=== PATIENT | female | born 1980 | race Caucasian/White ===

== ENCOUNTER 2016-09-07 14:22 | Emergency (ER) | payer OTHER ==
[~2016-09-07] VITALS: Ht 157.5 cm; Wt 101.2 kg
[~2016-09-07 14:22] MED LIST: AGM875T PO; AMLO10TA2 PO; AMLO5TAB2 PO; ATOR20TA66 PO; CHLO25TA22 PO; CYCL10TA9 PO; FAMO-119 PO; FERR-57 PO; HCT25T PO; HCTZ; IBP800T PO; KETO-22 PO; LVT.025T; LVT.05T PO; LVT.112T PO; MELO-195 PO; MELO7.5T PO; METF500T8 PO; NAPR-243 PO; NFCHLORT25 PO; OMG1KC PO; PHEN37.53 PO; PRD20T PO; PRD50T PO; RABE20TA PO; SIMV20TA3 PO; SIMV40TA4 PO; SULF1TAB38 PO; TRAM50TA2 PO; TRM50T PO
[2016-09-07] MEDS ORDERED: NAPR500T PO (15:09)
--- NOTE | 2016-09-07 15:09 | ED Upper Extremity ---
General Chief Complaint: Upper Extremity Stated Complaint: L WRIST PAIN Nursing Triage Note: PT CO OF L WRIST WEAKNESS, AND PAIN Nursing Sepsis Screen: No Definite Risk History of Present Illness Time seen by provider: 14:55 Initial Comments Left wrist and hand pain for 10 days, left hand dominant. Pain/Injury Location: left wrist, left hand Method of Injury: other (Overuse) Modifying Factors: Improves With Rest She has tried ibuprofen 600 mg every 6-8 hours with no improvement Allergies and Home Medications Allergies Coded Allergies: No Known Drug Allergies (Unverified , 02/17/10) Home Medications Amlodipine Besylate 10 Mg Tablet #30 (Reported) Chlorthalidone 25 Mg Tablet #30 (Reported) Famotidine 20 Mg Tablet #20 20 MG PO BID Prescribed by: SANDRA ANDREWS on 03/30/16 1613 Levothyroxine Sodium 50 Mcg Tablet #30 1 EACH PO DAILY Prescribed by: ROGELIO WILKINS on 02/27/14 1323 Naproxen 500 Mg Tablet #60 500 MG PO BID PRN PRN PAIN Prescribed by: SHER URRUTIA on 09/07/16 1509 Phentermine HCl 37.5 Mg Tablet 37.5 MG PO (Reported) Constitutional: no symptoms reported see HPI EENTM: no symptoms reported see HPI Respiratory: no symptoms reported see HPI Cardiovascular: no symptoms reported see HPI Gastrointestinal: no symptoms reported see HPI Genitourinary: no symptoms reported see HPI Musculoskeletal: no symptoms reported see HPI Skin: no symptoms reported see HPI Psychiatric/Neurological: No Symptoms Reported See HPI All Other Systems Reviewed Negative Unless Noted: Yes Past Esqmlmh-Wioijq-Sltybn Hx Patient Social History Alcohol Use: Denies Use Recreational Drug Use: No Smoking Status: Never a Smoker Recent Foreign Travel: No Contact w/Someone Who Travel: No Recent Infectious Disease Expo: No Recent Hopitalizations: No Physical Abuse Screen: No Sexual Abuse: No Immunizations Up To Date Tetanus Booster (TDap): Unknown Date of Pneumonia Vaccine: Apr 06, 2012 Seasonal Allergies Seasonal Allergies: No Surgeries HX Surgeries: Yes Surgeries: Tonsillectomy, Tubal Ligation Respiratory Hx Respiratory Disorders: No Cardiovascular Hx Cardiac Disorders: Yes Cardiac Disorders: High Cholesterol Neurological Hx Neurological Disorders: No Reproductive System Hx Reproductive Disorders: No HIV/AIDS: No Genitourinary Hx Genitourinary Disorders: No Gastrointestinal Hx Gastrointestinal Disorders: No Musculoskeletal Hx Musculoskeletal Disorders: No Endocrine Hx Endocrine Disorders: Yes Endocrine Disorders: Hypothyroidsim HEENT HX ENT Disorders: No Loss of Vision: Denies Hearing Impairment: Denies Cancer Hx Cancer: No Psychosocial Hx Psychiatric Problems: No Behavioral Health Disorders: Anxiety Integumentary HX Skin/Integumentary Disorder: No Blood Transfusions Hx Blood Disorders: No Adverse Reaction to a Blood Tr: No Reviewed Nursing Assessment Reviewed/Agree w Nursing PMH: Yes Family Medical History Significant Family History: No Pertinent Family Hx Family Medial History: Cardiovascular disease 19 FATHER 19 MOTHER Congenital heart disease 19 MOTHER Hypertension 19 MOTHER Myocardial infarction 19 MOTHER Physical Exam Vital Signs Vital Sign - Last 12Hours 09/07/16 14:40 Temp 97.9 Pulse 96 Resp 18 B/P 174/99 Pulse Ox 100 Capillary Refill : Less Than 3 Seconds General Appearance: WD/WN no apparent distress HEENT: PERRL/EOMI normal ENT inspection Neck: non-tender full range of motion supple normal inspection Cardiovascular: normal peripheral pulses regular rate, rhythm no edema no gallop no JVD no murmur Respiratory: chest non-tender lungs clear normal breath sounds no respiratory distress no accessory muscle use Wrist: Yes normal inspection, Yes no evidence of injury, Yes normal ROM, No asymmetry, Yes pain (left), Yes soft tissue tenderness (base of thumb and volar wrist), No swelling Hand: normal inspection, no evidence of injury, normal ROM, Left, soft tissue tenderness (thenar eminence) Neurologic/Tendon: normal sensation normal motor functions normal tendon functions Neurologic/Psychiatric: no motor/sensory deficits alert normal mood/affect Skin: normal color warm/dry Progress/Results/Core Measures Results/Orders Vital Signs/I&O Vital Sign - Last 12Hours 09/07/16 09/07/16 14:40 15:13 Temp 97.9 97.9 Pulse 96 96 Resp 18 18 B/P 174/99 Pulse Ox 100 100 Blood Pressure Mean: 124 Progress Note : Time: 15:00 Progress Note Wrist splint applied to the left hand, patient reports that it improves her symptoms. Encouraged her to wear it as much as possible. Departure Impression Impression: Primary Impression: Left wrist pain Additional Impression: Carpal tunnel syndrome of left wrist Disposition: 01 HOME, SELF-CARE Condition: Improved Departure-Patient Inst. Decision time for Depature: 15:00 Referrals: [facility] (PCP/Family) Primary Care Physician Patient Instructions: Carpal Tunnel Syndrome (DC) Add. Discharge Instructions: All discharge instructions reviewed with patient and/or family. Voiced understanding. Wear wrist splint. Follow up with Bharati Graham APRN if symptoms persist. Scripts Naproxen (Naprosyn)500 Mg [id number] Mg PO BID PRN PAIN #60 TAB Ref 0 Prov:SHER URRUTIA 09/07/16 SHER URRUTIA Sep 07, 2016 15:09
[2016-09-07 15:13] VITALS: BP 174/99
== END 2016-09-07 15:16 | disposition home or self-care (01) ==
LOC: EDUNIT# 14:22 → ER 14:23
DX: M25.532 Pain in left wrist (principal); G56.02 Carpal tunnel syndrome, left upper limb
CPT/HCPCS: 99283

== ENCOUNTER 2016-09-13 13:46 | Emergency (ER) | payer OTHER ==
[~2016-09-13] VITALS: Ht 157.5 cm; Wt 101.2 kg
[~2016-09-13 13:46] MED LIST changes: +NAPR500T PO
--- NOTE | 2016-09-13 14:39 | Diagnostic Imaging Report ---
INDICATION: Cough, congestion, chest pressure, shortness of air. Compared to 04/06/2014. FINDINGS: The lungs are clear. There is, however, some prominence of the perihilar interstitial lung markings and thickening of the airways which can reflect reactive airway disease or bronchitis. No pneumonia, however. No failure, effusion or pneumothorax. IMPRESSION: Mild prominence of perihilar interstitial lung markings, otherwise, negative. Dictated by: Dictated on workstation # [id number]
--- NOTE | 2016-09-13 15:05 | ED Cough/URI ---
General Chief Complaint: Cough/Cold/Flu Symptoms Stated Complaint: FEVER/COUGH/CONGESTION Nursing Triage Note: Pt presents to ED with c/o non productive cough and fever over the last several days. 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 Source: patient Exam Limitations: clinical condition History of Present Illness Time seen by provider: 14:59 Initial Comments This 36-year-old female presents with cough, fever, and shortness of breath for the last several days. The patient has been using Tylenol intermittently for her fever. The patient denies a history of lung disease. She has had no cardiac disease. She denies hemoptysis or productive cough. She states that employee in her son' s albuterol nebulizer home has helped. Allergies and Home Medications Allergies Coded Allergies: No Known Drug Allergies (Unverified , 02/17/10) Home Medications Amlodipine Besylate 10 Mg Tablet #30 (Reported) Chlorthalidone 25 Mg Tablet #30 (Reported) Famotidine 20 Mg Tablet #20 20 MG PO BID Prescribed by: SANDRA ANDREWS on 03/30/16 1613 Levothyroxine Sodium 50 Mcg Tablet #30 1 EACH PO DAILY Prescribed by: ROGELIO WILKINS on 02/27/14 1323 Constitutional: No chills, No diaphoresis, fever EENTM: No hearing loss, No throat pain Respiratory: cough wheezing Cardiovascular: No chest pain Gastrointestinal: No abdominal pain, No diarrhea, No vomiting Genitourinary: No dysuria, No frequency Musculoskeletal: No back pain Skin: No rash Psychiatric/Neurological: No Symptoms Reported Hematologic/Lymphatic: No Symptoms Reported Past Obrsiom-Mbyzjq-Xmcupr Hx Patient Social History Alcohol Use: Denies Use Recreational Drug Use: No Smoking Status: Never a Smoker Recent Foreign Travel: No Contact w/Someone Who Travel: No Recent Infectious Disease Expo: No Recent Hopitalizations: Yes (ER visit 1.5 weeks ago- carpal tunnel.) Physical Abuse Screen: No Sexual Abuse: No Immunizations Up To Date Tetanus Booster (TDap): Unknown Date of Pneumonia Vaccine: Apr 06, 2012 Seasonal Allergies Seasonal Allergies: No Surgeries HX Surgeries: Yes Surgeries: Tonsillectomy, Tubal Ligation Respiratory Hx Respiratory Disorders: No Cardiovascular Hx Cardiac Disorders: Yes Cardiac Disorders: High Cholesterol, Hypertension Neurological Hx Neurological Disorders: No Reproductive System Hx Reproductive Disorders: No HIV/AIDS: No Genitourinary Hx Genitourinary Disorders: No Gastrointestinal Hx Gastrointestinal Disorders: No Musculoskeletal Hx Musculoskeletal Disorders: No Endocrine Hx Endocrine Disorders: Yes Endocrine Disorders: Hypothyroidsim HEENT HX ENT Disorders: No Loss of Vision: Denies Hearing Impairment: Denies Cancer Hx Cancer: No Psychosocial Hx Psychiatric Problems: No Behavioral Health Disorders: Anxiety Integumentary HX Skin/Integumentary Disorder: No Blood Transfusions Hx Blood Disorders: No Adverse Reaction to a Blood Tr: No Reviewed Nursing Assessment Reviewed/Agree w Nursing PMH: Yes Family Medical History Significant Family History: No Pertinent Family Hx Family Medial History: Cardiovascular disease 19 FATHER 19 MOTHER Congenital heart disease 19 MOTHER Hypertension 19 MOTHER Myocardial infarction 19 MOTHER Physical Exam Vital Signs Vital Sign - Last 12Hours 09/13/16 14:01 Temp 99.4 Pulse 98 Resp 20 B/P 159/92 Pulse Ox 100 O2 Delivery Room Air Capillary Refill : Less Than 3 Seconds General Appearance: WD/WN no apparent distress Eyes: Bilateral Eye Normal Inspection HEENT: normal ENT inspection Neck: supple Respiratory: decreased breath soundsNo rales, wheezing Cardiovascular: regular rate, rhythm no murmur Gastrointestinal: normal bowel sounds non tender soft Extremities: normal range of motion Neurologic/Psychiatric: no motor/sensory deficits alert Skin: normal color warm/dry Progress/Results/Core Measures Results/Orders My Orders Orders-REFUGIO FARRAR MD Chest Pa/Lat (2 View) (09/13/16 14:10) Vital Signs/I&O Vital Sign - Last 12Hours 09/13/16 14:01 Temp 99.4 Pulse 98 Resp 20 B/P 159/92 Pulse Ox 100 O2 Delivery Room Air Blood Pressure Mean: 114 Progress Note : Time: 15:02 Progress Note Patient's chest x-ray demonstrated bilateral fine perihilar infiltrate suggestive of either a viral infection or atypical pneumonia. The patient's pulse oximetry was 100 percent on room air at presentation emergency department. I discussed patient's findings with her and her . We created a treatment plan which will involve azithromycin, Tussionex, albuterol nebulized treatments at home, and prednisone for next 5 days. I asked that the patient follow-up with her caregiver on Thursday. I invited her to return to the emergency department over the weekend if she any further problems or questions. Departure Impression Impression: Primary Impression: Upper respiratory infection Qualified Code: J06.9 - Acute upper respiratory infection, unspecified Disposition: HOME, SELF-CARE Condition: Unchanged Departure-Patient Inst. Decision time for Depature: 15:04 Referrals: [facility] ([place]P/Family) Primary Care Physician Patient Instructions: Acute Bronchitis in Adults Add. Discharge Instructions: Z-Vipul, prednisone, Tussionex, and Ventolin nebulized treatments at home. Close follow-up with [facility] on Thursday. Return if any problems or questions. All discharge instructions reviewed with patient and/or family. Voiced understanding. REFUGIO FARRAR MD Sep 13, 2016 15:05
[2016-09-13 15:31] VITALS: BP 162/90
== END 2016-09-13 15:30 | disposition home or self-care (01) ==
LOC: EDUNIT# 13:46 → ER 13:47
DX: J06.9 Acute upper respiratory infection, unspecified (principal); I10 Essential (primary) hypertension; Z79.899 Other long term (current) drug therapy
CPT/HCPCS: 71020

== ENCOUNTER 2016-11-27 06:08 | Emergency (ER) | payer OTHER ==
[~2016-11-27] VITALS: Ht 160 cm; Wt 99.8 kg
[2016-11-27 06:45] LABS: BASOPHILS # (AUTO) 0.1 10^3/uL (0.0-0.1); BASOPHILS % (AUTO) 1 % (0-10); EOSINOPHILS # (AUTO) 0.3 10^3/uL (0.0-0.3); EOSINOPHILS % (AUTO) 5 % (0-10); LYMPHOCYTES # (AUTO) 1.3 X 10^3 (1.0-4.0); LYMPHOCYTES % (AUTO) 22 % (12-44); MEAN CORPUSCULAR HEMOGLOBIN 21 PG (25-34); MEAN CORPUSCULAR HGB CONC 30 G/DL (32-36); MEAN CORPUSCULAR VOLUME 70 FL (80-99); MEAN PLATELET VOLUME 11.6 FL (7.4-10.4); MONOCYTES # (AUTO) 0.8 X 10^3 (0.0-1.0); MONOCYTES % (AUTO) 13 % (0-12); NEUTROPHILS # (AUTO) 3.4 X 10^3 (1.8-7.8); NEUTROPHILS % (AUTO) 58 % (42-75); PLATELET COUNT 359 10^3/uL (130-400); RED BLOOD COUNT 4.19 10^6/uL (4.35-5.85); RED CELL DISTRIBUTION WIDTH 18.7 % (10.0-14.5); WHITE BLOOD COUNT 5.8 10^3/uL (4.3-11.0)
[2016-11-27 07:04] LABS: ALANINE AMINOTRANSFERASE 15 U/L (0-55); ALBUMIN 3.9 G/DL (3.2-4.5); ANION GAP 10 MMOL/L (5-14); ASPARTATE AMINO TRANSFERASE 14 U/L (5-34); BILIRUBIN,TOTAL 0.2 MG/DL (0.1-1.0); BLOOD UREA NITROGEN 10 MG/DL (7-18); BUN/CREATININE RATIO 13; CALCIUM 8.7 MG/DL (8.5-10.1); CARBON DIOXIDE 22 MMOL/L (21-32); CHLORIDE 105 MMOL/L (98-107); CREATININE SERUM 0.76 MG/DL (0.60-1.30); GFR ESTIMATED > 60; GLUCOSE 99 MG/DL (70-105); POTASSIUM 3.9 MMOL/L (3.6-5.0); SODIUM 137 MMOL/L (135-145); TOTAL PROTEIN 6.1 G/DL (6.4-8.2)
--- NOTE | 2016-11-27 07:32 | ED Cough/URI ---
General Chief Complaint: Cough/Cold/Flu Symptoms Stated Complaint: FEVER OVER 101. X 2 DAYS Nursing Triage Note: Pt c/o sore throat, headache, chills, runny nose, cough, and chest tightness since 1300 yesterday. Pt reports she has been running fever of 101.2 at home. Source: patient Exam Limitations: no limitations History of Present Illness Time seen by provider: 07:20 Initial Comments The patient is a 36-year-old white female who presents with complaints of fever , myalgia, cough beginning yesterday. She took an ibuprofen yesterday has taken nothing today she reported a 101 temperature yesterday. Her temperature on arrival was normal. There is no nausea vomiting or indigestion. Timing/Duration: yesterday Severity/Quality: dry cough Allergies and Home Medications Allergies Coded Allergies: No Known Drug Allergies (Unverified , 02/17/10) Home Medications Amlodipine Besylate 10 Mg Tablet, 10 MG PO DAILY, #30 (Reported) Chlorthalidone 25 Mg Tablet, 25 MG PO DAILY, #30 (Reported) Famotidine 20 Mg Tablet, 20 MG PO BID, #20 Ref 0 Prescribed by: SANDRA ANDREWS on 03/30/16 1613 Levothyroxine Sodium 50 Mcg Tablet, 1 EACH PO DAILY, #30 Prescribed by: ROGELIO WILKINS on 02/27/14 1323 Constitutional: see HPI EENTM: no symptoms reported Respiratory: cough Cardiovascular: no symptoms reported Gastrointestinal: no symptoms reported Genitourinary: no symptoms reported Musculoskeletal: muscle pain Skin: no symptoms reported Psychiatric/Neurological: No Symptoms Reported Hematologic/Lymphatic: No Symptoms Reported Past Rpypehh-Lakyfr-Ecytxq Hx Patient Social History Alcohol Use: Denies Use Recreational Drug Use: No Smoking Status: Never a Smoker Recent Foreign Travel: No Contact w/Someone Who Travel: No Recent Infectious Disease Expo: No Recent Hopitalizations: No Immunizations Up To Date Tetanus Booster (TDap): Unknown Date of Pneumonia Vaccine: Apr 06, 2012 Seasonal Allergies Seasonal Allergies: No Surgeries HX Surgeries: Yes Surgeries: Tonsillectomy, Tubal Ligation Respiratory Hx Respiratory Disorders: No Cardiovascular Hx Cardiac Disorders: Yes Cardiac Disorders: High Cholesterol, Hypertension Neurological Hx Neurological Disorders: No Reproductive System Hx Reproductive Disorders: No HIV/AIDS: No Genitourinary Hx Genitourinary Disorders: No Gastrointestinal Hx Gastrointestinal Disorders: No Musculoskeletal Hx Musculoskeletal Disorders: No Endocrine Hx Endocrine Disorders: Yes Endocrine Disorders: Hypothyroidsim HEENT HX ENT Disorders: No Loss of Vision: Denies Hearing Impairment: Denies Cancer Hx Cancer: No Psychosocial Hx Psychiatric Problems: Yes Behavioral Health Disorders: Anxiety Integumentary HX Skin/Integumentary Disorder: No Blood Transfusions Hx Blood Disorders: No Adverse Reaction to a Blood Tr: No Family Medical History Significant Family History: No Pertinent Family Hx Family Medial History: Cardiovascular disease 19 FATHER 19 MOTHER Congenital heart disease 19 MOTHER Hypertension 19 MOTHER Myocardial infarction 19 MOTHER Physical Exam Vital Signs Vital Sign - Last 12Hours 11/27/16 06:17 Temp 97.2 Pulse 78 Resp 18 B/P (MAP) 136/87 Pulse Ox 97 O2 Delivery Room Air Capillary Refill : Less Than 3 Seconds Eyes: Bilateral Eye Normal Inspection HEENT: normal ENT inspection Neck: full range of motion Respiratory: chest non-tender, lungs clear, normal breath sounds, no respiratory distress, no accessory muscle use, respiratory distress Cardiovascular: normal peripheral pulses, regular rate, rhythm, no edema, no gallop, no JVD, no murmur Gastrointestinal: normal bowel sounds, non tender, soft, no organomegaly, no pulsatile mass Extremities: normal range of motion, non-tender, normal inspection, no pedal edema, no calf tenderness, normal capillary refill, pelvis stable Neurologic/Psychiatric: yard jacker II-XII nml as tested, no motor/sensory deficits, alert, normal mood/affect, oriented x 3 Skin: normal color, warm/dry, cyanosis, cool, diaphoresis, damp Lymphatic: no adenopathy Progress/Results/Core Measures Results/Orders Lab Results Laboratory Tests Test 11/27/16 06:32 Range/Units White Blood Count 5.8 4.3-11.0 10^3/uL Red Blood Count 4.19 L 4.35-5.85 10^6/uL Hemoglobin 8.6 L 11.5-16.0 G/DL Hematocrit 29 L 35-52 % Mean Corpuscular Volume 70 L 80-99 FL Mean Corpuscular Hemoglobin 21 L 25-34 PG Mean Corpuscular Hemoglobin Concent 30 L 32-36 G/DL Red Cell Distribution Width 18.7 H 10.0-14.5 % Platelet Count 359 130-400 10^3/uL Mean Platelet Volume 11.6 H 7.4-10.4 FL Neutrophils (%) (Auto) 58 42-75 % Lymphocytes (%) (Auto) 22 12-44 % Monocytes (%) (Auto) 13 H 0-12 % Eosinophils (%) (Auto) 5 0-10 % Basophils (%) (Auto) 1 0-10 % Neutrophils # (Auto) 3.4 1.8-7.8 X 10^3 Lymphocytes # (Auto) 1.3 1.0-4.0 X 10^3 Monocytes # (Auto) 0.8 0.0-1.0 X 10^3 Eosinophils # (Auto) 0.3 0.0-0.3 10^3/uL Basophils # (Auto) 0.1 0.0-0.1 10^3/uL Sodium Level 137 135-145 MMOL/L Potassium Level 3.9 3.6-5.0 MMOL/L Chloride Level 105 98-107 MMOL/L Carbon Dioxide Level 22 21-32 MMOL/L Anion Gap 10 5-14 MMOL/L Blood Urea Nitrogen 10 7-18 MG/DL Creatinine 0.76 0.60-1.30 MG/DL Estimat Glomerular Filtration Rate > 60 BUN/Creatinine Ratio 13 Glucose Level 99 70-105 MG/DL Calcium Level 8.7 8.5-10.1 MG/DL Total Bilirubin 0.2 0.1-1.0 MG/DL Aspartate Amino Transf (AST/SGOT) 14 5-34 U/L Alanine Aminotransferase (ALT/SGPT) 15 0-55 U/L Alkaline Phosphatase 88 40-136 U/L Total Protein 6.1 L 6.4-8.2 G/DL Albumin 3.9 3.2-4.5 G/DL Micro Results Microbiology 11/27/16 Influenza Types A,B Antigen (RADHA) - Final, Complete My Orders Orders - PINKY SHERMAN MD Cbc With Automated Diff (11/27/16 06:22) Comprehensive Metabolic Panel (11/27/16 06:22) Influenza A And B Antigens (11/27/16 06:22) Vital Signs/I&O Vital Sign - Last 12Hours 11/27/16 11/27/16 06:17 06:17 Temp 97.2 Pulse 78 Resp 18 B/P (MAP) 136/87 Pulse Ox 97 O2 Delivery Room Air Room Air Blood Pressure Mean: 103 Departure Impression Impression: Primary Impression: Viral URI Disposition: 01 HOME, SELF-CARE Condition: Stable/Unchanged Departure-Patient Inst. Decision time for Depature: 07:33 Referrals: [facility] (PCP/Family) Primary Care Physician Patient Instructions: Viral Upper Respiratory Infection, Adult (DC) Add. Discharge Instructions: All discharge instructions reviewed with patient and/or family. Voiced understanding. Symptoms may last for a weeks. Treatment involves plenty of fluids, extra rest, cough lozenges for cough management, Tylenol 650 every 4 hours or if fever 102 or greater ibuprofen 600 mg every 6 hours. You were noted to be anemic and this will require some attention from your provider. They have been contacted to arrange follow-up. PINKY SHERMAN MD Nov 27, 2016 07:32
[2016-11-27 07:40] VITALS: BP 132/82
--- OUTSIDE RECORDS SUMMARY | 2016-11-30 08:03 | XMS REPORT ---
Author Author HENNA SIMS Organization [employer] Address Unknown Phone Unavailable Care Team Providers Care Cover Machine Operator Name Role Phone HENNA SIMS CP Unavailable Allergies No Known Allergies Problems Problem Type Condition Code Onset Dates Condition Status Problem Lateral epicondylitis of elbow 726.32 Active Problem Pain in joint, pelvic region and thigh 719.45 Active Problem Unspecified viral infection, in conditions classified elsewhere and of unspecified site 079.99 Active Problem Hyperlipidemia 272.4 Active Problem Fasciitis 729.4 Active Problem Hypertension 401.9 Active Problem Acute bronchitis 466.0 Active Problem Abnormal weight gain 783.1 Active Problem Goiter, unspecified 240.9 Active Problem Other abnormal glucose 790.29 Active Assessment Tarsal tunnel syndrome of right side G57.51 Active Problem Abdominal pain, epigastric 789.06 Active Assessment Plantar fasciitis, right M72.2 Active Problem Unspecified synovitis and tenosynovitis 727.00 Active Problem Medial epicondylitis of elbow 726.31 Active Problem Unspecified fasciitis 729.4 Active Problem Overweight 278.02 Active Problem Personal history of noncompliance with medical treatment, presenting hazards to health V15.81 Active Problem Acute sinusitis, unspecified 461.9 Active Medications No Known Medications Procedures Procedure Coding System Code Date Office Visit, Est Pt., Level 3 CPT-4 20020 Jun 29, 2015 INJ TENDON SHEATH/LIGAMENT CPT-4 84235 Jun 29, 2015 Vital Signs Date/Time: Jun 29, 2015 Blood Pressure Diastolic 90 mmHg Blood Pressure Systolic 130 mmHg Height 63 in Results Name Result Date Reference Range Unit Abnormality Flag INJ TENDON SHEATH/LIGAMENT Summary Purpose [employer] Submission
--- OUTSIDE RECORDS SUMMARY | 2016-11-30 08:03 | XMS REPORT ---
Author ELIZABETH Victor [facility] [employer] Address Unknown Phone Unavailable Care Team Providers Care Finishing Lab Technician Name Role Phone ELIZABETH DELUCA CP Unavailable Allergies, Adverse Reactions, Alerts Substance Reaction Event Type N.K.D.A. Info Not Available Non Drug Allergy Problems Problem Type Condition Code Onset Dates [...] Problem Other abnormal glucose 790.29 Active Assessment Acute upper respiratory infection, unspecified J06.9 Active Problem Abdominal pain, epigastric 789.06 Active Problem Unspecified synovitis and tenosynovitis 727.00 Active Problem Medial epicondylitis of elbow 726.31 Active Problem Unspecified fasciitis 729.4 Active Problem Overweight 278.02 Active Problem Personal history of noncompliance with medical treatment, presenting hazards to health V15.81 Active Problem Acute sinusitis, unspecified 461.9 Active Medications Medication Code System Code Instructions Start Date End Date Status Dosage Levothyroxine Sodium [facility] [address]-26 175 MCG Orally Once a day Jun 04, 2015 1 tablet Aciphex [facility] [address]-71 20 MG Orally Once a day 1 tablet Flonase [facility] [address]-53 50 MCG/ACT Nasally 2 times a day February 21, 2015 1 spray in each nostril Augmentin [facility] [address]-08 875-125 MG Orally every 12 hrs Aug 22, 2015 Sep 01, 2015 1 tablet Chlorthalidone [facility] [address]-53 25 MG Orally Once a day 1 tablet in the morning Amlodipine Besylate [facility] [address]-34 10 MG Orally Once a day 1 tablet Phentermine HCl [facility] [address]-67 37.5 MG Orally not defined Ibuprofen [facility] [id number] 600 MG TAKE ONE TABLET BY MOUTH THREE TIMES DAILY NEEDED PAIN WITH FOOD PredniSONE [facility] [address]-62 20 MG Orally Once a day Aug 22, 2015 Aug 27, 2015 as directed Promethazine-Codeine [facility] [address]-35 6.25-10 MG/5ML Orally Once a day at bedtime Aug 22, 2015 Aug 29, 2015 5 ml as needed Atorvastatin Calcium [facility] [address]-25 10 MG Orally Once a day Jun 04, 2015 1 tablet Procedures Procedure Coding System Code Date Office Visit, Est Pt., Level 3 CPT-4 45436 Aug 22, 2015 Vital Signs Date/Time: Aug 22, 2015 Temperature 98.8 F Weight 223.2 lbs Height 63 in BMI 39.53 Index Blood Pressure Diastolic 84 mmHg Blood Pressure Systolic 122 mmHg Cardiac Monitoring Heart Rate 96 bpm Results No Known Results Summary Purpose [employer] Submission
--- OUTSIDE RECORDS SUMMARY | 2016-11-30 08:03 | XMS REPORT ---
Author SUBHASH Mueller [facility] eClinicalWorks Address Unknown Phone Unavailable Care Team Providers Care Head Filter Tank Tender Helper Name Role Phone SUBHASH WHEAT Unavailable Allergies, Adverse Reactions, Alerts Substance Reaction Event Type N.K.D.A. Info Not Available Non Drug Allergy Problems Problem Type Condition Code Onset Dates Condition Status Problem Pure hypercholesterolemia E78.0 Active Problem GERD (gastroesophageal reflux disease) K21.9 Active Problem Essential hypertension I10 Active Assessment Muscle spasm of back M62.830 Active Problem Acquired hypothyroidism E03.9 Active Problem Fasciitis 729.4 Active Medications Medication Code System Code Instructions Start Date End Date Status Dosage Atorvastatin Calcium [facility] [address]-63 10 MG Orally Once a day Jun 04, 2015 1 tablet Cyclobenzaprine HCl [facility] [address]-88 10 mg Orally Three times a day March 20, 2016 1 tablet Amlodipine Besylate [facility] [address]-85 10 MG Orally Once a day 1 tablet Aciphex [facility] [address]-75 20 MG Orally Once a day 1 tablet Chlorthalidone [facility] [address]-46 25 MG Orally Once a day 1 tablet in the morning Tramadol HCl [facility] [address]-17 50 mg Orally every 6 hrs.prn pain March 20, 2016 1-2 Flonase [facility] [address]-35 50 MCG/ACT Nasally 2 times a day February 21, 2015 1 spray in each nostril Levothyroxine Sodium [facility] [address]-83 150 MCG Orally Once a day Sep 17, 2015 1 tablet Phentermine HCl [facility] [address]-10 37.5 MG Orally not defined Ibuprofen [facility] 69492920588 600 MG oral three times a day prn 1 tablet Indomethacin [facility] [address]-03 50 MG Orally Twice a day May 30, 2015 1 capsule with food Procedures Procedure Coding System Code Date Office Visit, Est Pt., Level 2 CPT-4 84096 March 20, 2016 Vital Signs Date/Time: March 20, 2016 Cardiac Monitoring Heart Rate 90 bpm Weight 214.6 lbs Height 63 in Blood Pressure Diastolic 78 mmHg Blood Pressure Systolic 122 mmHg Results No Known Results Summary Purpose eClinicalWorks Submission
--- OUTSIDE RECORDS SUMMARY | 2016-11-30 08:03 | XMS REPORT ---
Author Author HENNA SIMS Organization eClinicalWorks Address Unknown Phone Unavailable Care Team Providers Care Toll Relief Operator Name Role Phone HENNA SIMS CP Unavailable Allergies No Known Allergies Problems Problem Type Condition ICD-9 Code Onset Dates Condition Status Problem Unspecified viral infection, in conditions classified elsewhere and of unspecified site 079.99 Active Problem Other and unspecified hyperlipidemia 272.4 Active Problem Pain in joint, pelvic region and thigh 719.45 Active Problem Chest pain, unspecified 786.50 Active Problem Acute upper respiratory infections of unspecified site 465.9 Active Problem Fasciitis 729.4 Active Problem Acute bronchitis 466.0 Active Problem Abnormal weight gain 783.1 Active Problem Goiter, unspecified 240.9 Active Problem Other abnormal glucose 790.29 Active Problem Abdominal pain, epigastric 789.06 Active Problem Unspecified fasciitis 729.4 Active Assessment Plantar fasciitis 728.71 Active Problem Medial epicondylitis of elbow 726.31 Active Problem Overweight 278.02 Active Problem Personal history of noncompliance with medical treatment, presenting hazards to health V15.81 Active Problem Acute sinusitis, unspecified 461.9 Active Problem Unspecified synovitis and tenosynovitis 727.00 Active Problem Lateral epicondylitis of elbow 726.32 Active Medications No Known Medications Procedures Procedure Coding System Code Date Office Visit, Est Pt., Level 3 CPT-4 76480 Apr 20, 2015 DEPO MEDROL 80 MG/ML CPT-4 J1040 Apr 20, 2015 INJ TENDON SHEATH/LIGAMENT CPT-4 72136 Apr 20, 2015 Vital Signs Date/Time: Apr 20, 2015 Blood Pressure Diastolic 74 mmHg Blood Pressure Systolic 126 mmHg Height 63 in Results No Known Results Summary Purpose eClinicalWorks Submission
--- OUTSIDE RECORDS SUMMARY | 2016-11-30 08:03 | XMS REPORT ---
Author MADELIN Gilbert [facility] eClinicalWorks Address Unknown Phone Unavailable Care Team Providers Care Transcripter Name Role Phone MADELIN FARFAN CP Unavailable Allergies, Adverse Reactions, Alerts Substance Reaction Event Type N.K.D.A. Info Not Available Non Drug Allergy Problems Problem Type Condition Code Onset Dates Condition Status Assessment Sore throat J02.9 Active Problem Essential hypertension I10 Active Problem Pure hypercholesterolemia E78.0 Active Problem Pain of right shoulder region M25.511 Active Problem Fasciitis 729.4 Active Assessment Dysuria R30.0 Active Problem GERD (gastroesophageal reflux disease) K21.9 Active Problem Acquired hypothyroidism E03.9 Active Medications Medication Code System Code Instructions Start Date End Date Status Dosage Orphenadrine Citrate [facility] [address]-49 100 MG Orally Once a day March 1 tablet at bedtime Phentermine HCl [facility] [address]-52 37.5 MG Orally not defined Indomethacin [facility] [address]-64 50 MG Orally Twice a day May 30, 2015 1 capsule with food Amlodipine Besylate [facility] [address]-88 5 MG Orally Once a day (10 mg total) 2 tablet Levothyroxine Sodium [facility] [address]-82 150 MCG Orally Once a day Sep 17, 2015 1 tablet Zyrtec Allergy [facility] [address]-35 10 mg Orally Once a day May 05, 2016 Aug 03, 2016 1 tablet Flonase [facility] [address]-52 50 MCG/ACT Nasally 2 times a day February 21, 2015 1 spray in each nostril Ibuprofen [facility] 08774841472 600 MG oral three times a day prn 1 tablet Aciphex [facility] [address]-83 20 MG Orally Once a day 1 tablet Atorvastatin Calcium [facility] [address]-42 10 mg Orally Once a day 1 tablet Chlorthalidone [facility] [address]-01 25 MG Orally Once a day 1 tablet in the morning Levothyroxine Sodium [facility] [address]-11 150 MCG Orally Once a day 1 tablet Procedures Procedure Coding System Code Date URINE CULTURE/COLONY COUNT CPT-4 34053 May 05, 2016 STREP A ASSAY W/OPTIC CPT-4 29032 May 05, 2016 URINALYSIS, AUTO, W/O SCOPE CPT-4 79843 May 05, 2016 Office Visit, Est Pt., Level 3 CPT-4 41857 May 05, 2016 Vital Signs Date/Time: May 05, 2016 Cardiac Monitoring Heart Rate 100 bpm Weight 217.9 lbs Height 63 in BMI 38.60 Index Blood Pressure Diastolic 110 mmHg Blood Pressure Systolic 158 mmHg Results No Known Results Summary Purpose eClinicalWorks Submission
--- OUTSIDE RECORDS SUMMARY | 2016-11-30 08:04 | XMS REPORT ---
Author Author MANDEEP ADAIR Organization eClinicalWorks Address Unknown Phone Unavailable Care Team Providers Care Canine Enforcement Officer Name Role Phone MANDEEP ADAIR CP Unavailable Allergies No Known Allergies Problems Problem Type Condition Code Onset Dates Condition Status Problem Fasciitis 729.4 Active Medications No Known Medications Results No Known Results Summary Purpose eClinicalWorks Submission
--- OUTSIDE RECORDS SUMMARY | 2016-11-30 08:04 | XMS REPORT ---
Author MANDEEP Alberts [facility] eClinicalWorks Address Unknown Phone Unavailable Care Team Providers Care Project Engineering Manager Name Role Phone MANDEEP ADAIR Unavailable Allergies, Adverse Reactions, Alerts Substance Reaction Event Type N.K.D.A. Info Not Available Non Drug Allergy Problems Problem Type Condition Code Onset Dates Condition Status Problem Pain of right shoulder region M25.511 Active Problem Essential hypertension I10 Active Problem Mixed hyperlipidemia E78.2 Active Problem Fasciitis 729.4 Active Assessment Eustachian tube dysfunction, bilateral H69.83 Active Problem GERD (gastroesophageal reflux disease) K21.9 Active Problem Acquired hypothyroidism E03.9 Active Medications Medication Code System Code Instructions Start Date End Date Status Dosage Flonase [facility] [address]-31 50 MCG/ACT Nasally 2 times a day February 21, 2015 1 spray in each nostril Zyrtec Allergy [facility] [address]-78 10 mg Orally Once a day May 05, 2016 Aug 03, 2016 1 tablet Orphenadrine Citrate ER [facility] [address]-21 100 MG Orally Once a day March 1 tablet at bedtime Chlorthalidone [facility] [address]-51 25 MG Orally Once a day 1 tablet in the morning PredniSONE [facility] [address]-39 10 MG Orally bid Jul 16, 2016 Jul 21, 2016 1 tablet Atorvastatin Calcium [facility] [address]-15 10 mg Orally Once a day 1 tablet Indomethacin [facility] [address]-14 50 MG Orally Twice a day May 30, 2015 1 capsule with food Aciphex [facility] [address]-46 20 MG Orally Once a day 1 tablet Levothyroxine Sodium [facility] [address]-41 150 MCG Orally Once a day 1 tablet Ibuprofen [facility] 62522263109 600 MG oral three times a day prn 1 tablet Amlodipine Besylate [facility] [address]-13 10 mg Orally Once a day 1 tablet Procedures Procedure Coding System Code Date Office Visit, Est Pt., Level 3 CPT-4 70511 Jul 16, 2016 Vital Signs Date/Time: Jul 16, 2016 Cardiac Monitoring Heart Rate 92 bpm Weight 219.0 lbs Height 63 in BMI 38.79 Index Blood Pressure Diastolic 84 mmHg Blood Pressure Systolic 142 mmHg Results No Known Results Summary Purpose eClinicalWorks Submission
--- OUTSIDE RECORDS SUMMARY | 2016-11-30 08:04 | XMS REPORT ---
Author MANDEEP Alberts [facility] eClinicalWorks Address Unknown Phone Unavailable Care Team Providers Care Mechanical Test Engineer Name Role Phone MANDEEP ADAIR Unavailable Allergies, Adverse Reactions, Alerts Substance Reaction Event Type N.K.D.A. Info Not Available Non Drug Allergy Problems Problem Type Condition ICD-9 Code Onset Dates Condition Status Problem Lateral epicondylitis of elbow 726.32 Active Problem Pain in joint, pelvic region and thigh 719.45 Active Problem Unspecified viral infection, in conditions classified elsewhere and of unspecified site 079.99 Active Problem Hyperlipidemia 272.4 Active Assessment Plantar fasciitis of right foot 728.71 Active Problem Fasciitis 729.4 Active Assessment Hyperlipidemia 272.4 Active Problem Hypertension 401.9 Active Problem Acute bronchitis 466.0 Active Problem Abnormal weight gain 783.1 Active Problem Goiter, unspecified 240.9 Active Problem Other abnormal glucose 790.29 Active Assessment Hypothyroidism 244.9 Active Problem Abdominal pain, epigastric 789.06 Active Assessment GERD (gastroesophageal reflux disease) 530.81 Active Assessment Hypertension 401.9 Active Problem Unspecified synovitis and tenosynovitis 727.00 Active Problem Medial epicondylitis of elbow 726.31 Active Problem Unspecified fasciitis 729.4 Active Problem Overweight 278.02 Active Problem Personal history of noncompliance with medical treatment, presenting hazards to health V15.81 Active Problem Acute sinusitis, unspecified 461.9 Active Medications Medication Code System Code Instructions Start Date End Date Status Dosage Chlorthalidone [facility] [address]-37 25 MG Orally Once a day 1 tablet in the morning Cortisporin [facility] [address]-27 3.5-14342-7 Otic Three times a day February 21, 2015 4 drops into affected ear Indomethacin [facility] [address]-50 50 MG Orally Twice a day May 30, 2015 1 capsule with food Flonase [facility] [address]-04 50 MCG/ACT Nasally 2 times a day February 21, 2015 1 spray in each nostril Levothyroxine Sodium [facility] [address]-07 200 MCG Orally Once a day [address] [facility] [address]-86 20 MG Orally Once a day [address] [facility] [address]-45 10 MG Orally Once a day [address] [facility] [address]-41 37.5 MG Orally not defined Atorvastatin Calcium [facility] [address]-06 20 MG Orally Once a day 1 tablet Procedures Procedure Coding System Code Date Office Visit, Est Pt., Level 4 CPT-4 33375 May 30, 2015 Vital Signs Date/Time: May 30, 2015 Temperature 98.4 F Weight 221.8 lbs Height 63 in BMI 39.29 Index Blood Pressure Diastolic 78 mmHg Blood Pressure Systolic 120 mmHg Cardiac Monitoring Heart Rate 92 bpm Results No Known Results Summary Purpose eClinicalWorks Submission
--- OUTSIDE RECORDS SUMMARY | 2016-11-30 08:04 | XMS REPORT ---
Author JEREMY Gonzales [facility] eClinicalWorks Address Unknown Phone Unavailable Care Team Providers Care Camp Director Name Role Phone JEREMY UMANA CP Unavailable Allergies, Adverse Reactions, Alerts Substance [...] Problem Other abnormal glucose 790.29 Active Assessment Sinusitis J32.9 Active Problem Abdominal pain, epigastric 789.06 Active Assessment Postnasal drip R09.82 Active Problem Unspecified synovitis and tenosynovitis 727.00 Active Problem Medial epicondylitis of elbow 726.31 Active Problem Unspecified fasciitis 729.4 Active Problem Overweight 278.02 Active Problem Personal history of noncompliance with medical treatment, presenting hazards to health V15.81 Active Problem Acute sinusitis, unspecified 461.9 Active Medications Medication Code System Code Instructions Start Date End Date Status Dosage Flonase [facility] [address]-24 50 MCG/ACT Nasally 2 times a day February 21, 2015 1 spray in each nostril Aciphex [facility] [address]-70 20 MG Orally Once a day 1 tablet Phentermine HCl [facility] [address]-68 37.5 MG Orally not defined Levothyroxine Sodium [facility] [address]-92 175 MCG Orally Once a day Jun 04, 2015 1 tablet Amlodipine Besylate [facility] [address]-36 10 MG Orally Once a day 1 tablet Chlorthalidone [facility] [address]-11 25 MG Orally Once a day 1 tablet in the morning Atorvastatin Calcium [facility] [address]-47 10 MG Orally Once a day Jun 04, 2015 1 tablet PredniSONE [facility] [address]-80 10 MG Orally Twice a day Aug 07, 2015Aug 1 tablet with food or milk Azithromycin [facility] [address]-17 250 MG Orally Once a day Aug 07, 2015 Aug 12, 2015 2 tablets on the first day, then 1 tablet daily for 4 days Procedures Procedure Coding System Code Date Office Visit, Est Pt., Level 3 CPT-4 07889 Aug 07, 2015 Vital Signs Date/Time: Aug 07, 2015 Temperature 97.6 F Weight 219.8 lbs Height 63 in BMI 38.93 Index Blood Pressure Diastolic 92 mmHg Blood Pressure Systolic 130 mmHg Cardiac Monitoring Heart Rate 76 bpm Results No Known Results Summary Purpose eClinicalWorks Submission
--- OUTSIDE RECORDS SUMMARY | 2016-11-30 08:04 | XMS REPORT ---
Author RICK Champion eClinicalWorks Address Unknown Phone Unavailable Care Team Providers Care Accounting Auditor Name Role Phone RICK GREGORY CP Unavailable Allergies, Adverse Reactions, Alerts Substance Reaction Event Type N.K.D.A. Info Not Available Non Drug Allergy Problems Problem Type Condition Code Onset Dates Condition Status Problem Essential hypertension I10 Active Problem Pure hypercholesterolemia E78.0 Active Problem Pain of right shoulder region M25.511 Active Problem Fasciitis 729.4 Active Assessment Contact dermatitis, unspecified contact dermatitis type, unspecified trigger L25.9 Active Problem GERD (gastroesophageal reflux disease) K21.9 Active Problem Acquired hypothyroidism E03.9 Active Medications Medication Code System Code Instructions Start Date End Date Status Dosage Levothyroxine Sodium [facility] [address]-33 150 MCG Orally Once a day 1 tablet Ibuprofen [facility] 81789860093 600 MG oral three times a day prn 1 tablet Levothyroxine Sodium [facility] [address]-74 150 MCG Orally Once a day Sep 17, 2015 1 tablet Indomethacin [facility] [address]-12 50 MG Orally Twice a day May 30, 2015 1 capsule with food Atorvastatin Calcium [facility] [address]-02 10 mg Orally Once a day 1 tablet Chlorthalidone [facility] [address]-63 25 MG Orally Once a day 1 tablet in the morning Orphenadrine Citrate ER [facility] [address]-55 100 MG Orally Once a day March 1 tablet at bedtime Zyrtec Allergy [facility] [address]-63 10 mg Orally Once a day May 05, 2016 Aug 03, 2016 1 tablet Flonase [facility] [address]-73 50 MCG/ACT Nasally 2 times a day February 21, 2015 1 spray in each nostril Phentermine HCl [facility] [address]-44 37.5 MG Orally not defined Aciphex [facility] [address]-59 20 MG Orally Once a day 1 tablet Amlodipine Besylate [facility] [address]-83 5 MG Orally Once a day (10 mg total) 2 tablet Procedures Procedure Coding System Code Date THER/PROPH/DIAG INJ, SC/IM CPT-4 47200 Jun 27, 2016 Office Visit, Est Pt., Level 3 CPT-4 25393 Jun 27, 2016 SOLUMEDROL (UP TO 125 MG) CPT-4 J2930 Jun 27, 2016 Vital Signs Date/Time: Jun 27, 2016 Cardiac Monitoring Heart Rate 94 bpm Weight 213.8 lbs Height 63 in BMI 37.87 Index Blood Pressure Diastolic 88 mmHg Blood Pressure Systolic 146 mmHg Results No Known Results Summary Purpose eClinicalWorks Submission
--- OUTSIDE RECORDS SUMMARY | 2016-11-30 08:04 | XMS REPORT ---
Author Author HENNA SIMS Organization eClinicalWorks Address Unknown Phone Unavailable Care Team Providers Care Computer Consultant Name Role Phone HENNA SIMS CP Unavailable [...] Problem Other abnormal glucose 790.29 Active Assessment Plantar fasciitis, right M72.2 Active Problem Abdominal pain, epigastric 789.06 Active Assessment Pain in right foot M79.671 Active Problem Unspecified synovitis and tenosynovitis 727.00 Active Problem Medial epicondylitis of elbow 726.31 Active Problem Unspecified fasciitis 729.4 Active Problem Overweight 278.02 Active Problem Personal history of noncompliance with medical treatment, presenting hazards to health V15.81 Active Problem Acute sinusitis, unspecified 461.9 Active Medications No Known Medications Procedures Procedure Coding System Code Date Office Visit, Est Pt., Level 3 CPT-4 88297 Aug 10, 2015 Vital Signs Date/Time: Aug 10, 2015 Blood Pressure Diastolic 86 mmHg Blood Pressure Systolic 130 mmHg Height 63 in Results No Known Results Summary Purpose eClinicalWorks Submission
--- OUTSIDE RECORDS SUMMARY | 2016-11-30 08:04 | XMS REPORT ---
Author MANDEEP Alberts Organization eClinicalWorks Address Unknown Phone Unavailable Care Team Providers Care Advertising Account Executive Name Role Phone MANDEEP ADAIR CP Unavailable [...] unspecified 461.9 Active Medications No Known Medications Results No Known Results Summary Purpose eClinicalWorks Submission
--- OUTSIDE RECORDS SUMMARY | 2016-11-30 08:04 | XMS REPORT ---
Author Author MANDEEP ADAIR Organization eClinicalWorks Address Unknown Phone Unavailable Care Team Providers Care Hemodialysis Patient Care Specialist Name Role Phone MANDEEP ADAIR CP Unavailable [...] Problem Abdominal pain, epigastric 789.06 Active Assessment Hyperlipidemia 272.4 Active Assessment Hypertension 401.9 Active Problem Unspecified synovitis and tenosynovitis 727.00 Active Problem Medial epicondylitis of elbow 726.31 Active Problem Unspecified fasciitis 729.4 Active Problem Overweight 278.02 Active Problem Personal history of noncompliance with medical treatment, presenting hazards to health V15.81 Active Problem Acute sinusitis, unspecified 461.9 Active Medications No Known Medications Procedures Procedure Coding System Code Date ASSAY THYROID STIM HORMONE CPT-4 04329 May 31, 2015 LIPID PANEL CPT-4 99244 May 31, 2015 ASSAY OF MAGNESIUM CPT-4 95670 May 31, 2015 VENIPUNCT, ROUTINE* CPT-4 88762 May 31, 2015 COMPREHEN METABOLIC PANEL CPT-4 22201 May 31, 2015 Results Name Result Date Reference Range Unit Abnormality Flag ROUTINE VENIPUNCTURE Summary Purpose eClinicalWorks Submission
--- OUTSIDE RECORDS SUMMARY | 2016-11-30 08:06 | XMS REPORT ---
Author GERONIMO Gomez [facility] eClinicalWorks Address Unknown Phone Unavailable Care Team Providers Care Sack Cleaning Hand Name Role Phone GERONIMO SUAREZ Unavailable Allergies No Known Allergies Problems Problem [...] 789.06 Active Problem Unspecified fasciitis 729.4 Active Problem Medial epicondylitis of elbow 726.31 Active Problem Overweight 278.02 Active Problem Personal history of noncompliance with medical treatment, presenting hazards to health V15.81 Active Problem Acute sinusitis, unspecified 461.9 Active Problem Unspecified synovitis and tenosynovitis 727.00 Active Problem Lateral epicondylitis of elbow 726.32 Active Medications Medication Code System Code Instructions Start Date End Date Status Dosage Amlodipine Besylate [facility] [address]-35 10 MG Orally Once a day- must keep appt for futher refills. 1 tablet Chlorthalidone [facility] [address]-28 25 MG Orally Once a day- must keep appt for additional refills 1 tablet in the morning Levothyroxine Sodium [facility] [address]-15 50 MCG Orally Once a day- must keep appt for futher refills. 1 tablet Atorvastatin Calcium [facility] [address]-12 20 MG Orally Once a day- must keep appt for futher refills 1 tablet MetFORMIN HCl ER [facility] [address]-97 500 MG Orally Once a day- must keep appt for futher refills 1 tablet with evening meal Results No Known Results Summary Purpose eClinicalWorks Submission
--- OUTSIDE RECORDS SUMMARY | 2016-11-30 08:06 | XMS REPORT ---
Author SUBHASH Mueller [facility] eClinicalWorks Address Unknown Phone Unavailable Care Team Providers Care Rectifier Operator Name Role Phone SUBHASH WHEAT CP Unavailable Allergies, Adverse Reactions, Alerts Substance [...] Problem Other abnormal glucose 790.29 Active Assessment Concussion S06.0X9A Active Problem Abdominal pain, epigastric 789.06 Active [...] Date End Date Status Dosage Amlodipine Besylate [facility] [address]-43 10 MG Orally Once a day 1 tablet Chlorthalidone [facility] [address]-25 25 MG Orally Once a day 1 tablet in the morning Flonase [facility] [address]-95 50 MCG/ACT Nasally 2 times a day February 21, 2015 1 spray in each nostril Ibuprofen [facility] [address]-15 600 MG Orally Three times a day 1 tablet as needed Aciphex [facility] [address]-26 20 MG Orally Once a day 1 tablet Atorvastatin Calcium [facility] [address]-04 10 MG Orally Once a day Jun 04, 2015 1 tablet Phentermine HCl [facility] [address]-71 37.5 MG Orally not defined Levothyroxine Sodium [facility] [address]-10 175 MCG Orally Once a day Jun 04, 2015 1 tablet Procedures Procedure Coding System Code Date Office Visit, Est Pt., Level 4 CPT-4 11902 Jul 12, 2015 Vital Signs Date/Time: Jul 12, 2015 Temperature 98.6 F Weight 220 lbs Height 63 in BMI 38.97 Index Blood Pressure Diastolic 88 mmHg Blood Pressure Systolic 128 mmHg Cardiac Monitoring Heart Rate 80 bpm Results Name Result Date Reference Range Unit Abnormality Flag CT Scan : Brain Summary Purpose eClinicalWorks Submission
--- OUTSIDE RECORDS SUMMARY | 2016-11-30 08:06 | XMS REPORT ---
Author Author MANDEEP ADAIR Organization [employer] Address Unknown Phone Unavailable Care Team Providers Care Wall And Floor Tiler Name Role Phone MANDEEP ADAIR CP Unavailable Allergies No Known Allergies Problems Problem Type Condition Code Onset Dates Condition Status Problem Pain of right shoulder region M25.511 Active Problem Essential hypertension I10 Active Problem Mixed hyperlipidemia E78.2 Active Problem Fasciitis 729.4 Active Problem GERD (gastroesophageal reflux disease) K21.9 Active Problem Acquired hypothyroidism E03.9 Active Medications Medication Code System Code Instructions Start Date End Date Status Dosage Levothyroxine Sodium [facility] [place] [address]-87 150 MCG Orally Once a day 1 tablet Results No Known Results Summary Purpose [employer] Submission
--- OUTSIDE RECORDS SUMMARY | 2016-11-30 08:06 | XMS REPORT | Continuity of Care Document ---
Author Author [facility] Address Unknown Phone Unavailable Allergies Active Description Code Type Severity Reaction Onset Reported/Identified Relationship to Patient Clinical Status Yes No Known Drug Allergies [id number] Drug Allergy Unknown N/ A 02/17/2010 Medications Problems Date Dx Coded Attending Type Code Diagnosis Diagnosed By 06/21/2008 381.81 Eustachian Tube Dysfunction 06/21/2008 388.70 Ear Ache 06/21/2008 SUAREZ DO, GERONIMO K 381.81 Eustachian Tube Dysfunction 06/21/2008 SUAREZ DO, GERONIMO K 388.70 Ear Ache 06/21/2008 381.81 Eustachian Tube Dysfunction 06/21/2008 388.70 Ear Ache 06/21/2008 SUAREZ DO, GERONIMO K 381.81 Eustachian Tube Dysfunction 06/21/2008 SUAREZ DO, GERONIMO K 388.70 Ear Ache 06/21/2008 381.81 Eustachian Tube Dysfunction 06/21/2008 388.70 Ear Ache 06/21/2008 SUAREZ DO, GERONIMO K 381.81 Eustachian Tube Dysfunction 06/21/2008 SUAREZ DO, GERONIMO K 388.70 Ear Ache 06/21/2008 SUAREZ DO, GERONIMO K 381.81 Eustachian Tube Dysfunction 06/21/2008 SUAREZ DO, GERONIMO K 388.70 Ear Ache 06/21/2008 SUAREZ DO, GERONIMO K 381.81 Eustachian Tube Dysfunction 06/21/2008 SUAREZ DO, GERONIMO K 388.70 Ear Ache 06/21/2008 SUAREZ DO, GERONIMO K 381.81 Eustachian Tube Dysfunction 06/21/2008 SUAREZ DO, GERONIMO K 388.70 Ear Ache 06/21/2008 SUAREZ DO, GERONIMO K 381.81 Eustachian Tube Dysfunction 06/21/2008 SUAREZ DO, GERONIMO K 388.70 Ear Ache 06/21/2008 SUAREZ DO, GERONIMO K 381.81 Eustachian Tube Dysfunction 06/21/2008 SUAREZ DO, GERONIMO K 388.70 Ear Ache 06/21/2008 SUAREZ DO, GERONIMO K 381.81 Eustachian Tube Dysfunction 06/21/2008 SUAREZ DO, GERONIMO K 388.70 Ear Ache 06/21/2008 SUAREZ DO, GERONIMO K 381.81 Eustachian Tube Dysfunction 06/21/2008 SUAREZ DO, GERONIMO K 388.70 Ear Ache 06/21/2008 SUAREZ DO, GERONIMO K 381.81 Eustachian Tube Dysfunction 06/21/2008 SUAREZ DO, GERONIMO K 388.70 Ear Ache 06/21/2008 ETTA QUINN MD 381.81 Eustachian Tube Dysfunction 06/21/2008 ETTA QUINN MD 388.70 Ear Ache 06/21/2008 SUAREZ DO, GERONIMO K 381.81 Eustachian Tube Dysfunction 06/21/2008 SUAREZ DO, GERONIMO K 388.70 Ear Ache 07/06/2008 682.9 Cellulitis And Abscess Of Unspecified Sites 07/06/2008 SUAREZ DO, GERONIMO K 682.9 Cellulitis And Abscess Of Unspecified Sites 07/06/2008 682.9 Cellulitis And Abscess Of Unspecified Sites 07/06/2008 SUAREZ DO, GERONIMO K 682.9 Cellulitis And Abscess Of Unspecified Sites 07/06/2008 682.9 Cellulitis And Abscess Of Unspecified Sites 07/06/2008 SUAREZ DO, GERONIMO K 682.9 Cellulitis And Abscess Of Unspecified Sites 07/06/2008 SUAREZ DO, GERONIMO K 682.9 Cellulitis And Abscess Of Unspecified Sites 07/06/2008 SUAREZ DO, GERONIMO K 682.9 Cellulitis And Abscess Of Unspecified Sites 07/06/2008 SUAREZ DO, GERONIMO K 682.9 Cellulitis And Abscess Of Unspecified Sites 07/06/2008 SUAREZ DO, GERONIMO K 682.9 Cellulitis And Abscess Of Unspecified Sites 07/06/2008 SUAREZ DO, GERONIMO K 682.9 Cellulitis And Abscess Of Unspecified Sites 07/06/2008 SUAREZ DO, GERONIMO K 682.9 Cellulitis And Abscess Of Unspecified Sites 07/06/2008 SUAREZ DO, GERONIMO K 682.9 Cellulitis And Abscess Of Unspecified Sites 07/06/2008 SUAREZ DO, GERONIMO K 682.9 Cellulitis And Abscess Of Unspecified Sites 07/06/2008 KAI FRANCISCO, ETTA N 682.9 Cellulitis And Abscess Of Unspecified Sites 07/06/2008 SUAREZ DO, GERONIMO K 682.9 Cellulitis And Abscess Of Unspecified Sites 03/20/2009 462 Pharyngitis Acute 03/20/2009 SUAREZ DO, GERONIMO K 462 Pharyngitis Acute 03/20/2009 462 Pharyngitis Acute 03/20/2009 SUAREZ DO, GERONIMO K 462 Pharyngitis Acute 03/20/2009 462 Pharyngitis Acute 03/20/2009 SUAREZ DO, GERONIMO K 462 Pharyngitis Acute 03/20/2009 SUAREZ DO, GERONIMO K 462 Pharyngitis Acute 03/20/2009 SUAREZ DO, GERONIMO K 462 Pharyngitis Acute 03/20/2009 SUAREZ DO, GERONIMO K 462 Pharyngitis Acute 03/20/2009 SUAREZ DO, GERONIMO K 462 Pharyngitis Acute 03/20/2009 SUAREZ DO, GERONIMO K 462 Pharyngitis Acute 03/20/2009 SUAREZ DO, GERONIMO K 462 Pharyngitis Acute 03/20/2009 SUAREZ DO, GERONIMO K 462 Pharyngitis Acute 03/20/2009 SUAREZ DO, GERONIMO K 462 Pharyngitis Acute 03/20/2009 ETTA QUINN MD N 462 Pharyngitis Acute 03/20/2009 SUAREZ DO, GERONIMO K 462 Pharyngitis Acute 04/02/2009 724.5 Backache Unspecified 04/02/2009 SUAREZ DO, GERONIMO K 724.5 Backache Unspecified 04/02/2009 724.5 Backache Unspecified 04/02/2009 SUAREZ DO, GERONIMO K 724.5 Backache Unspecified 04/02/2009 724.5 Backache Unspecified 04/02/2009 SUAREZ DO, GERONIMO K 724.5 Backache Unspecified 04/02/2009 SUAREZ DO, GERONIMO K 724.5 Backache Unspecified 04/02/2009 SUAREZ DO, GERONIMO K 724.5 Backache Unspecified 04/02/2009 SUAREZ DO, GERONIMO K 724.5 Backache Unspecified 04/02/2009 SUAREZ DO, GERONIMO K 724.5 Backache Unspecified 04/02/2009 SUAREZ DO, GERONIMO K 724.5 Backache Unspecified 04/02/2009 SUAREZ DO, GERONIMO K 724.5 Backache Unspecified 04/02/2009 SUAREZ DO, GERONIMO K 724.5 Backache Unspecified 04/02/2009 SUAREZ DO, GERONIMO K 724.5 Backache Unspecified 04/02/2009 ETTA QUINN MD 724.5 Backache Unspecified 04/02/2009 SUAREZ DO, GERONIMO K 724.5 Backache Unspecified 05/28/2009 477.9 Allergic Rhinitis Cause Unspecified 05/28/2009 SUAREZ DO, GERONIMO K 477.9 Allergic Rhinitis Cause Unspecified 05/28/2009 477.9 Allergic Rhinitis Cause Unspecified 05/28/2009 SUAREZ DO, GERONIMO K 477.9 Allergic Rhinitis Cause Unspecified 05/28/2009 477.9 Allergic Rhinitis Cause Unspecified 05/28/2009 SUAREZ DO, GERONIMO K 477.9 Allergic Rhinitis Cause Unspecified 05/28/2009 SUAREZ DO, GERONIMO K 477.9 Allergic Rhinitis Cause Unspecified 05/28/2009 SUAREZ DO, GERONIMO K 477.9 Allergic Rhinitis Cause Unspecified 05/28/2009 SUAREZ DO, GERONIMO K 477.9 Allergic Rhinitis Cause Unspecified 05/28/2009 SUAREZ DO, GERONIMO K 477.9 Allergic Rhinitis Cause Unspecified 05/28/2009 SUAREZ DO, GERONIMO K 477.9 Allergic Rhinitis Cause Unspecified 05/28/2009 SUAREZ DO, GERONIMO K 477.9 Allergic Rhinitis Cause Unspecified 05/28/2009 SUAREZ DO, GERONIMO K 477.9 Allergic Rhinitis Cause Unspecified 05/28/2009 SUAREZ DO, GERONIMO K 477.9 Allergic Rhinitis Cause Unspecified 05/28/2009 ETTA QUINN MD 477.9 Allergic Rhinitis Cause Unspecified 05/28/2009 SUAREZ DO, GERONIMO K 477.9 Allergic Rhinitis Cause Unspecified 12/10/2009 401.1 ESSENTIAL HYPERTENSION BENIGN 12/10/2009 701.9 ATROPHODERMA 12/10/2009 SUAREZ DO, GERONIMO K 401.1 ESSENTIAL HYPERTENSION BENIGN 12/10/2009 SUAREZ DO, GERONIMO K 701.9 ATROPHODERMA 12/10/2009 401.1 ESSENTIAL HYPERTENSION BENIGN 12/10/2009 701.9 ATROPHODERMA 12/10/2009 SUAREZ DO, GERONIMO K 401.1 ESSENTIAL HYPERTENSION BENIGN 12/10/2009 SUAREZ DO, GERONIMO K 701.9 ATROPHODERMA 12/10/2009 401.1 ESSENTIAL HYPERTENSION BENIGN 12/10/2009 701.9 ATROPHODERMA 12/10/2009 SUAREZ DO, GERONIMO K 401.1 ESSENTIAL HYPERTENSION BENIGN 12/10/2009 SUAREZ DO, GERONIMO K 701.9 ATROPHODERMA 12/10/2009 SUAREZ DO, GERONIMO K 401.1 ESSENTIAL HYPERTENSION BENIGN 12/10/2009 SUAREZ DO, GERONIMO K 701.9 ATROPHODERMA 12/10/2009 SUAREZ DO, GERONIMO K 401.1 ESSENTIAL HYPERTENSION BENIGN 12/10/2009 SUAREZ DO, GERONIMO K 701.9 ATROPHODERMA 12/10/2009 SUAREZ DO, GERONIMO K 401.1 ESSENTIAL HYPERTENSION BENIGN 12/10/2009 SUAREZ DO, GERONIMO K 701.9 ATROPHODERMA 12/10/2009 SUAREZ DO, GERONIMO K 401.1 ESSENTIAL HYPERTENSION BENIGN 12/10/2009 SUAREZ DO, GERONIMO K 701.9 ATROPHODERMA 12/10/2009 SUAREZ DO, GERONIMO K 401.1 ESSENTIAL HYPERTENSION BENIGN 12/10/2009 SUAREZ DO, GERONIMO K 701.9 ATROPHODERMA 12/10/2009 SUAREZ DO, GERONIMO K 401.1 ESSENTIAL HYPERTENSION BENIGN 12/10/2009 SUAREZ DO, GERONIMO K 701.9 ATROPHODERMA 12/10/2009 SUAREZ DO, GERONIMO K 401.1 ESSENTIAL HYPERTENSION BENIGN 12/10/2009 SUAREZ DO, GERONIMO K 701.9 ATROPHODERMA 12/10/2009 SUAREZ DO, GERONIMO K 401.1 ESSENTIAL HYPERTENSION BENIGN 12/10/2009 SUAREZ DO, GERONIMO K 701.9 ATROPHODERMA 12/10/2009 ETTA QUINN MD N 401.1 ESSENTIAL HYPERTENSION BENIGN 12/10/2009 ETTA QUINN MD 701.9 ATROPHODERMA 12/10/2009 SUAREZ DO, GERONIMO K 401.1 ESSENTIAL HYPERTENSION BENIGN 12/10/2009 SUAREZ DO, GERONIMO K 701.9 ATROPHODERMA 12/19/2009 244.9 HYPOTHYROIDISM 12/19/2009 278.00 OBESITY 12/19/2009 SUAREZ DO, GERONIMO K 244.9 HYPOTHYROIDISM 12/19/2009 SUAREZ DO, GERONIMO K 278.00 OBESITY 12/19/2009 244.9 HYPOTHYROIDISM 12/19/2009 278.00 OBESITY 12/19/2009 SUAREZ DO, GERONIMO K 244.9 HYPOTHYROIDISM 12/19/2009 SUAREZ DO, GERONIMO K 278.00 OBESITY 12/19/2009 244.9 HYPOTHYROIDISM 12/19/2009 278.00 OBESITY 12/19/2009 SUAREZ DO, GERONIMO K 244.9 HYPOTHYROIDISM 12/19/2009 SUAREZ DO, GERONIMO K 278.00 OBESITY 12/19/2009 SUAREZ DO, GERONIMO K 244.9 HYPOTHYROIDISM 12/19/2009 SUAREZ DO, GERONIMO K 278.00 OBESITY 12/19/2009 SUAREZ DO, GERONIMO K 244.9 HYPOTHYROIDISM 12/19/2009 SUAREZ DO, GERONIMO K 278.00 OBESITY 12/19/2009 SUAREZ DO, GERONIMO K 244.9 HYPOTHYROIDISM 12/19/2009 SUAREZ DO, GERONIMO K 278.00 OBESITY 12/19/2009 SUAREZ DO, GERONIMO K 244.9 HYPOTHYROIDISM 12/19/2009 SUAREZ DO, GERONIMO K 278.00 OBESITY 12/19/2009 SUAREZ DO, GERONIMO K 244.9 HYPOTHYROIDISM 12/19/2009 SUAREZ DO, GERONIMO K 278.00 OBESITY 12/19/2009 SUAREZ DO, GERONIMO K 244.9 HYPOTHYROIDISM 12/19/2009 SUAREZ DO, GERONIMO K 278.00 OBESITY 12/19/2009 SUAREZ DO, GERONIMO K 244.9 HYPOTHYROIDISM 12/19/2009 SUAREZ DO, GERONIMO K 278.00 OBESITY 12/19/2009 SUAREZ DO, GERONIMO K 244.9 HYPOTHYROIDISM 12/19/2009 SUAREZ DO, GERONIMO K 278.00 OBESITY 12/19/2009 ETTA QUINN MD N 244.9 HYPOTHYROIDISM 12/19/2009 ETTA QUINN MD N 278.00 OBESITY 12/19/2009 SUAREZ DO, GERONIMO K 244.9 HYPOTHYROIDISM 12/19/2009 SUAREZ DO, GERONIMO K 278.00 OBESITY 12/28/2009 280.1 Iron Deficiency Anemias, Secondary To Inadequate Dietary Iron Intake 12/28/2009 SUAREZ DO, GERONIMO K 280.1 Iron Deficiency Anemias, Secondary To Inadequate Dietary Iron Intake 12/28/2009 280.1 Iron Deficiency Anemias, Secondary To Inadequate Dietary Iron Intake 12/28/2009 SUAREZ DO, GERONIMO K 280.1 Iron Deficiency Anemias, Secondary To Inadequate Dietary Iron Intake 12/28/2009 280.1 Iron Deficiency Anemias, Secondary To Inadequate Dietary Iron Intake 12/28/2009 SUAREZ DO, GERONIMO K 280.1 Iron Deficiency Anemias, Secondary To Inadequate Dietary Iron Intake 12/28/2009 SUAREZ DO, GERONIMO K 280.1 Iron Deficiency Anemias, Secondary To Inadequate Dietary Iron Intake 12/28/2009 SUAREZ DO, GERONIMO K 280.1 Iron Deficiency Anemias, Secondary To Inadequate Dietary Iron Intake 12/28/2009 SUAREZ DO, GERONIMO K 280.1 Iron Deficiency Anemias, Secondary To Inadequate Dietary Iron Intake 12/28/2009 SUAREZ DO, GERONIMO K 280.1 Iron Deficiency Anemias, Secondary To Inadequate Dietary Iron Intake 12/28/2009 SUAREZ DO, GERONIMO K 280.1 Iron Deficiency Anemias, Secondary To Inadequate Dietary Iron Intake 12/28/2009 SUAREZ DO, GERONIMO K 280.1 Iron Deficiency Anemias, Secondary To Inadequate Dietary Iron Intake 12/28/2009 SUAREZ DO, GERONIMO K 280.1 Iron Deficiency Anemias, Secondary To Inadequate Dietary Iron Intake 12/28/2009 SUAREZ DO, GERONIMO K 280.1 Iron Deficiency Anemias, Secondary To Inadequate Dietary Iron Intake 12/28/2009 KAI FRANCISCO, ETTA Barker 280.1 Iron Deficiency Anemias, Secondary To Inadequate Dietary Iron Intake 12/28/2009 SUAREZ DO, GERONIMO K 280.1 Iron Deficiency Anemias, Secondary To Inadequate Dietary Iron Intake 02/17/2010 Ot 915.8 02/17/2010 Ot E000.8 02/17/2010 Ot E030 02/17/2010 Ot E849.0 02/17/2010 Ot E906.3 02/17/2010 Ot V06.1 02/27/2010 625.3 severe menstrual pain (dysmenorrhea) 02/27/2010 V72.31 ROUTINE GYNECOLOGICAL EXAMINATION 02/27/2010 SUAREZ DO, GERONIMO K 625.3 Severe Menstrual Pain (dysmenorrhea) 02/27/2010 SUAREZ DO, GERONIMO K V72.31 ROUTINE GYNECOLOGICAL EXAMINATION 02/27/2010 625.3 severe menstrual pain (dysmenorrhea) 02/27/2010 V72.31 ROUTINE GYNECOLOGICAL EXAMINATION 02/27/2010 SUAREZ DO, GERONIMO K 625.3 Severe Menstrual Pain (dysmenorrhea) 02/27/2010 SUAREZ DO, GERONIMO K V72.31 ROUTINE GYNECOLOGICAL EXAMINATION 02/27/2010 625.3 Severe Menstrual Pain (dysmenorrhea) 02/27/2010 V72.31 ROUTINE GYNECOLOGICAL EXAMINATION 02/27/2010 SUAREZ DO, GERONIMO K 625.3 Severe Menstrual Pain (dysmenorrhea) 02/27/2010 SUAREZ DO, GERONIMO K V72.31 ROUTINE GYNECOLOGICAL EXAMINATION 02/27/2010 SUAREZ DO, GERONIMO K 625.3 Severe Menstrual Pain (dysmenorrhea) 02/27/2010 SUAREZ DO, GERONIMO K V72.31 ROUTINE GYNECOLOGICAL EXAMINATION 02/27/2010 SUAREZ DO, GERONIMO K 625.3 Severe Menstrual Pain (dysmenorrhea) 02/27/2010 SUAREZ DO, GERONIMO K V72.31 ROUTINE GYNECOLOGICAL EXAMINATION 02/27/2010 SUAREZ DO, GERONIMO K 625.3 Severe Menstrual Pain (dysmenorrhea) 02/27/2010 SUAREZ DO, GERONIMO K V72.31 ROUTINE GYNECOLOGICAL EXAMINATION 02/27/2010 SUAREZ DO, GERONIMO K 625.3 Severe Menstrual Pain (dysmenorrhea) 02/27/2010 SUAREZ DO, GERONIMO K V72.31 ROUTINE GYNECOLOGICAL EXAMINATION 02/27/2010 SUAREZ DO, GERONIMO K 625.3 Severe Menstrual Pain (dysmenorrhea) 02/27/2010 SUAREZ DO, GERONIMO K V72.31 ROUTINE GYNECOLOGICAL EXAMINATION 02/27/2010 SUAREZ DO, GERONIMO K 625.3 Severe Menstrual Pain (dysmenorrhea) 02/27/2010 SUAREZ DO, GERONIMO K V72.31 ROUTINE GYNECOLOGICAL EXAMINATION 02/27/2010 SUAREZ DO, GERONIMO K 625.3 Severe Menstrual Pain (dysmenorrhea) 02/27/2010 SUAREZ DO, GERONIMO K V72.31 ROUTINE GYNECOLOGICAL EXAMINATION 02/27/2010 SUAREZ DO, GERONIMO K 625.3 Severe Menstrual Pain (dysmenorrhea) 02/27/2010 SUAREZ DO, GERONIMO K V72.31 ROUTINE GYNECOLOGICAL EXAMINATION 02/27/2010 ETTA QUINN MD 625.3 Severe Menstrual Pain (dysmenorrhea) 02/27/2010 ETTA QUINN MD V72.31 ROUTINE GYNECOLOGICAL EXAMINATION 02/27/2010 SUAREZ DO, GERONIMO K 625.3 Severe Menstrual Pain (dysmenorrhea) 02/27/2010 SUAREZ DO, GERONIMO K V72.31 ROUTINE GYNECOLOGICAL EXAMINATION 03/13/2010 218.9 UTERINE NEOPLASM, BENIGN - LEIOMYOMA 03/13/2010 626.2 EXCESSIVE OR FREQUENT MENSTRUATION 03/13/2010 SUAREZ DO, GERONIMO K 218.9 UTERINE NEOPLASM, BENIGN - LEIOMYOMA 03/13/2010 SUAREZ DO, GERONIMO K 626.2 EXCESSIVE OR FREQUENT MENSTRUATION 03/13/2010 218.9 UTERINE NEOPLASM, BENIGN - LEIOMYOMA 03/13/2010 626.2 EXCESSIVE OR FREQUENT MENSTRUATION 03/13/2010 SUAREZ DO, GERONIMO K 218.9 UTERINE NEOPLASM, BENIGN - LEIOMYOMA 03/13/2010 SUAREZ DO, GERONIMO K 626.2 EXCESSIVE OR FREQUENT MENSTRUATION 03/13/2010 218.9 UTERINE NEOPLASM, BENIGN - LEIOMYOMA 03/13/2010 626.2 EXCESSIVE OR FREQUENT MENSTRUATION 03/13/2010 SUAREZ DO, GERONIMO K 218.9 UTERINE NEOPLASM, BENIGN - LEIOMYOMA 03/13/2010 SUAREZ DO, GERONIMO K 626.2 EXCESSIVE OR FREQUENT MENSTRUATION 03/13/2010 SUAREZ DO, GERONIMO K 218.9 UTERINE NEOPLASM, BENIGN - LEIOMYOMA 03/13/2010 SUAREZ DO, GERONIMO K 626.2 EXCESSIVE OR FREQUENT MENSTRUATION 03/13/2010 SUAREZ DO, GERONIMO K 218.9 UTERINE NEOPLASM, BENIGN - LEIOMYOMA 03/13/2010 SUAREZ DO, GERONIMO K 626.2 EXCESSIVE OR FREQUENT MENSTRUATION 03/13/2010 SUAREZ DO, GERONIMO K 218.9 UTERINE NEOPLASM, BENIGN - LEIOMYOMA 03/13/2010 SUAREZ DO, GERONIMO K 626.2 EXCESSIVE OR FREQUENT MENSTRUATION 03/13/2010 SUAREZ DO, GERONIMO K 218.9 UTERINE NEOPLASM, BENIGN - LEIOMYOMA 03/13/2010 SUAREZ DO, GERONIMO K 626.2 EXCESSIVE OR FREQUENT MENSTRUATION 03/13/2010 SUAREZ DO, GERONIMO K 218.9 UTERINE NEOPLASM, BENIGN - LEIOMYOMA 03/13/2010 SUAREZ DO, GERONIMO K 626.2 EXCESSIVE OR FREQUENT MENSTRUATION 03/13/2010 SUAREZ DO, GERONIMO K 218.9 UTERINE NEOPLASM, BENIGN - LEIOMYOMA 03/13/2010 SUAREZ DO, GERONIMO K 626.2 EXCESSIVE OR FREQUENT MENSTRUATION 03/13/2010 SUAREZ DO, GERONIMO K 218.9 UTERINE NEOPLASM, BENIGN - LEIOMYOMA 03/13/2010 SUAREZ DO, GERONIMO K 626.2 EXCESSIVE OR FREQUENT MENSTRUATION 03/13/2010 SUAREZ DO, GERONIMO K 218.9 UTERINE NEOPLASM, BENIGN - LEIOMYOMA 03/13/2010 SUAREZ DO, GERONIMO K 626.2 EXCESSIVE OR FREQUENT MENSTRUATION 03/13/2010 KAI FRANCISCO, ETTA Vergara.9 UTERINE NEOPLASM, BENIGN - LEIOMYOMA 03/13/2010 KAI FRANCISCO, ETTA N 626.2 EXCESSIVE OR FREQUENT MENSTRUATION 03/13/2010 GERONIMO SUAREZ DO 218.9 UTERINE NEOPLASM, BENIGN - LEIOMYOMA 03/13/2010 GERONIMO SUAREZ DO 626.2 EXCESSIVE OR FREQUENT MENSTRUATION 05/08/2010 388.30 Tinnitus, Unspecified 05/08/2010 SUAREZ DO, GERONIMO K 388.30 Tinnitus, Unspecified 05/08/2010 388.30 Tinnitus, Unspecified 05/08/2010 SUAREZ DO, GERONIMO K 388.30 Tinnitus, Unspecified 05/08/2010 388.30 Tinnitus, Unspecified 05/08/2010 SUAREZ DO, GERONIMO K 388.30 Tinnitus, Unspecified 05/08/2010 SUAREZ DO, GERONIMO K 388.30 Tinnitus, Unspecified 05/08/2010 SUAREZ DO, GERONIMO K 388.30 Tinnitus, Unspecified 05/08/2010 SUAREZ DO, GERONIMO K 388.30 Tinnitus, Unspecified 05/08/2010 SUAREZ DO, GERONIMO K 388.30 Tinnitus, Unspecified 05/08/2010 SUAREZ DO, GERONIMO K 388.30 Tinnitus, Unspecified 05/08/2010 SUAREZ DO, GERONIMO K 388.30 Tinnitus, Unspecified 05/08/2010 SUAREZ DO, GERONIMO K 388.30 Tinnitus, Unspecified 05/08/2010 SUAREZ DO, GERONIMO K 388.30 Tinnitus, Unspecified 05/08/2010 KAI FRANCISCO, ETTA N 388.30 Tinnitus, Unspecified 05/08/2010 SUAREZ , GERONIMO K 388.30 Tinnitus, Unspecified 03/12/2011 V25.49 Gynecologic Service Prescrip Of Contracept Agent - Repeat Rx 03/12/2011 GERONIMO SUAREZ DO V25.49 Gynecologic Service Prescrip Of Contracept Agent - Repeat Rx 03/12/2011 V25.49 Gynecologic Service Prescrip Of Contracept Agent - Repeat Rx 03/12/2011 GERONIMO SUAREZ DO V25.49 Gynecologic Service Prescrip Of Contracept Agent - Repeat Rx 03/12/2011 V25.49 Gynecologic Service Prescrip Of Contracept Agent - Repeat Rx 03/12/2011 GERONIMO SUAREZ DO V25.49 Gynecologic Service Prescrip Of Contracept Agent - Repeat Rx 03/12/2011 GERONIMO SUAREZ DO V25.49 Gynecologic Service Prescrip Of Contracept Agent - Repeat Rx 03/12/2011 SUAREZ DO GERONIMO K V25.49 Gynecologic Service Prescrip Of Contracept Agent - Repeat Rx 03/12/2011 SUAREZ DO GERONIMO K V25.49 Gynecologic Service Prescrip Of Contracept Agent - Repeat Rx 03/12/2011 SUAREZ DO GERONIMO K V25.49 Gynecologic Service Prescrip Of Contracept Agent - Repeat Rx 03/12/2011 SUAREZ DO GERONIMO K V25.49 Gynecologic Service Prescrip Of Contracept Agent - Repeat Rx 03/12/2011 SUAREZ DO GERONIMO K V25.49 Gynecologic Service Prescrip Of Contracept Agent - Repeat Rx 03/12/2011 SUAREZ DO GERONIMO K V25.49 Gynecologic Service Prescrip Of Contracept Agent - Repeat Rx 03/12/2011 SUAREZ DO GERONIMO K V25.49 Gynecologic Service Prescrip Of Contracept Agent - Repeat Rx 03/12/2011 ETTA QUINN MD V25.49 Gynecologic Service Prescrip Of Contracept Agent - Repeat Rx 03/12/2011 SUAREZ DO GERONIMO K V25.49 Gynecologic Service Prescrip Of Contracept Agent - Repeat Rx 04/21/2011 599.70 HEMATURIA 04/21/2011 SUAREZ DO, GERONIMO K 599.70 Hematuria 04/21/2011 599.70 HEMATURIA 04/21/2011 SUAREZ DO, GERONIMO K 599.70 Hematuria 04/21/2011 599.70 Hematuria 04/21/2011 SUAREZ DO, GERONIMO K 599.70 Hematuria 04/21/2011 SUAREZ DO, GERONIMO K 599.70 Hematuria 04/21/2011 SUAREZ DO, GERONIMO K 599.70 Hematuria 04/21/2011 SUAREZ DO, GERONIMO K 599.70 Hematuria 04/21/2011 SUAREZ DO, GERONIMO K 599.70 Hematuria 04/21/2011 SUAREZ DO, GERONIMO K 599.70 Hematuria 04/21/2011 SUAREZ DO, GERONIMO K 599.70 Hematuria 04/21/2011 SUAREZ DO, GERONIMO K 599.70 Hematuria 04/21/2011 SUAREZ DO, GERONIMO K 599.70 Hematuria 04/21/2011 ETTA QUINN MD 599.70 Hematuria 04/21/2011 SUAREZ DO, GERONIMO K 599.70 Hematuria 04/28/2011 626.8 DYSFUNCTIONAL UTERINE BLEEDING 04/28/2011 789.00 Abdominal Pain Unspecified Site 04/28/2011 SUAREZ DO, GERONIMO K 626.8 DYSFUNCTIONAL UTERINE BLEEDING 04/28/2011 SUAREZ DO, GERONIMO K 789.00 Abdominal Pain Unspecified Site 04/28/2011 626.8 DYSFUNCTIONAL UTERINE BLEEDING 04/28/2011 789.00 Abdominal Pain Unspecified Site 04/28/2011 SUAREZ DO, GERONIMO K 626.8 DYSFUNCTIONAL UTERINE BLEEDING 04/28/2011 SUAREZ DO, GERONIMO K 789.00 Abdominal Pain Unspecified Site 04/28/2011 626.8 DYSFUNCTIONAL UTERINE BLEEDING 04/28/2011 789.00 Abdominal Pain Unspecified Site 04/28/2011 SUAREZ DO, GERONIMO K 626.8 DYSFUNCTIONAL UTERINE BLEEDING 04/28/2011 SUAREZ DO, GERONIMO K 789.00 Abdominal Pain Unspecified Site 04/28/2011 SUAREZ DO, GERONIMO K 626.8 DYSFUNCTIONAL UTERINE BLEEDING 04/28/2011 SUAREZ DO, GERONIMO K 789.00 Abdominal Pain Unspecified Site 04/28/2011 SUAREZ DO, GERONIMO K 626.8 DYSFUNCTIONAL UTERINE BLEEDING 04/28/2011 SUAREZ DO, GERONIMO K 789.00 Abdominal Pain Unspecified Site 04/28/2011 SUAREZ DO, GERONIMO K 626.8 DYSFUNCTIONAL UTERINE BLEEDING 04/28/2011 SUAREZ DO, GERONIMO K 789.00 Abdominal Pain Unspecified Site 04/28/2011 SUAREZ DO, GERONIMO K 626.8 DYSFUNCTIONAL UTERINE BLEEDING 04/28/2011 SUAREZ DO, GERONIMO K 789.00 Abdominal Pain Unspecified Site 04/28/2011 SUAREZ DO, GERONIMO K 626.8 DYSFUNCTIONAL UTERINE BLEEDING 04/28/2011 SUAREZ DO, GERONIMO K 789.00 Abdominal Pain Unspecified Site 04/28/2011 SUAREZ DO, GERONIMO K 626.8 DYSFUNCTIONAL UTERINE BLEEDING 04/28/2011 SUAREZ DO, GERONIMO K 789.00 Abdominal Pain Unspecified Site 04/28/2011 SUAREZ DO, GERONIMO K 626.8 DYSFUNCTIONAL UTERINE BLEEDING 04/28/2011 SUAREZ DO, GERONIMO K 789.00 Abdominal Pain Unspecified Site 04/28/2011 SUAREZ DO, GERONIMO K 626.8 DYSFUNCTIONAL UTERINE BLEEDING 04/28/2011 SUAREZ DO, GERONIMO K 789.00 Abdominal Pain Unspecified Site 04/28/2011 KAI FRANCISCO, ETTA N 626.8 DYSFUNCTIONAL UTERINE BLEEDING 04/28/2011 KAI FRANCISCO, ETTA N 789.00 Abdominal Pain Unspecified Site 04/28/2011 SUAREZ DO, GERONIMO K 626.8 DYSFUNCTIONAL UTERINE BLEEDING 04/28/2011 SUAREZ DO, GERONIMO K 789.00 Abdominal Pain Unspecified Site 06/30/2011 703.0 INGROWING NAIL 06/30/2011 SUAREZ DO, GERONIMO K 703.0 Ingrowing Nail 06/30/2011 703.0 INGROWING NAIL 06/30/2011 SUAREZ DO, GERONIMO K 703.0 Ingrowing Nail 06/30/2011 703.0 Ingrowing Nail 06/30/2011 SUAREZ DO, GERONIMO K 703.0 Ingrowing Nail 06/30/2011 SUAREZ DO, GERONIMO K 703.0 Ingrowing Nail 06/30/2011 SUAREZ DO, GERONIMO K 703.0 Ingrowing Nail 06/30/2011 SUAREZ DO, GERONIMO K 703.0 Ingrowing Nail 06/30/2011 SUAREZ DO, GERONIMO K 703.0 Ingrowing Nail 06/30/2011 SUAREZ DO, GERONIMO K 703.0 Ingrowing Nail 06/30/2011 SUAREZ DO, GERONIMO K 703.0 Ingrowing Nail 06/30/2011 SUAREZ DO, GERONIMO K 703.0 Ingrowing Nail 06/30/2011 SUAREZ DO, GERONIMO K 703.0 Ingrowing Nail 06/30/2011 KAI FRANCISCO, ETTA N 703.0 Ingrowing Nail 06/30/2011 SUAREZ DO, GERONIMO K 703.0 Ingrowing Nail 08/20/2011 Ot 786.50 CHEST PAIN NOS 08/20/2011 Ot 786.52 PAINFUL RESPIRATION 09/02/2011 786.50 UNSPECIFIED CHEST PAIN 09/02/2011 SUAREZ DO, GERONIMO K 786.50 Unspecified Chest Pain 09/02/2011 786.50 UNSPECIFIED CHEST PAIN 09/02/2011 SUAREZ DO, GERONIMO K 786.50 Unspecified Chest Pain 09/02/2011 786.50 Unspecified Chest Pain 09/02/2011 SUAREZ DO, GERONIMO K 786.50 Unspecified Chest Pain 09/02/2011 SUAREZ DO, GERONIMO K 786.50 Unspecified Chest Pain 09/02/2011 SUAREZ DO, GERONIMO K 786.50 Unspecified Chest Pain 09/02/2011 SUAREZ DO, GERONIMO K 786.50 Unspecified Chest Pain 09/02/2011 SUAREZ DO, GERONIMO K 786.50 Unspecified Chest Pain 09/02/2011 SUAREZ DO, GERONIMO K 786.50 Unspecified Chest Pain 09/02/2011 SUAREZ DO, GERONIMO K 786.50 Unspecified Chest Pain 09/02/2011 SUAREZ DO, GERONIMO K 786.50 Unspecified Chest Pain 09/02/2011 SUAREZ DO, GERONIMO K 786.50 Unspecified Chest Pain 09/02/2011 KAI FRANCISCO, ETTA Barker 786.50 Unspecified Chest Pain 09/02/2011 SUAREZ DO, GERONIMO K 786.50 Unspecified Chest Pain 09/17/2011 272.4 OTHER AND UNSPECIFIED HYPERLIPIDEMIA 09/17/2011 SUAREZ DO, GERONIMO K 272.4 OTHER AND UNSPECIFIED HYPERLIPIDEMIA 09/17/2011 272.4 OTHER AND UNSPECIFIED HYPERLIPIDEMIA 09/17/2011 SUAREZ DO, GERONIMO K 272.4 OTHER AND UNSPECIFIED HYPERLIPIDEMIA 09/17/2011 272.4 OTHER AND UNSPECIFIED HYPERLIPIDEMIA 09/17/2011 SUAREZ DO, GERONIMO K 272.4 OTHER AND UNSPECIFIED HYPERLIPIDEMIA 09/17/2011 SUAREZ DO, GERONIMO K 272.4 OTHER AND UNSPECIFIED HYPERLIPIDEMIA 09/17/2011 SUAREZ DO, GERONIMO K 272.4 OTHER AND UNSPECIFIED HYPERLIPIDEMIA 09/17/2011 SUAREZ DO, GERONIMO K 272.4 OTHER AND UNSPECIFIED HYPERLIPIDEMIA 09/17/2011 SUAREZ DO, GERONIMO K 272.4 OTHER AND UNSPECIFIED HYPERLIPIDEMIA 09/17/2011 SUAREZ DO, GERONIMO K 272.4 OTHER AND UNSPECIFIED HYPERLIPIDEMIA 09/17/2011 SUAREZ DO, GERONIMO K 272.4 OTHER AND UNSPECIFIED HYPERLIPIDEMIA 09/17/2011 SUAREZ DO, GERONIMO K 272.4 OTHER AND UNSPECIFIED HYPERLIPIDEMIA 09/17/2011 SUAREZ DO, GERONIMO K 272.4 OTHER AND UNSPECIFIED HYPERLIPIDEMIA 09/17/2011 KAI FRANCISCO, ETTA N 272.4 OTHER AND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
--- OUTSIDE RECORDS SUMMARY | 2016-11-30 08:06 | XMS REPORT ---
Author BOOKER Dawn [facility] eClinicalWorks Address Unknown Phone Unavailable Care Team Providers Care Owner [employer] Name Role Phone BOOKER STAPLETON Unavailable Allergies, Adverse Reactions, Alerts Substance Reaction [...] Active Problem Unspecified fasciitis 729.4 Active Assessment Cough 786.2 Active Assessment Acute pharyngitis 462 Active Problem Medial epicondylitis of elbow 726.31 Active Problem Overweight 278.02 Active Problem Personal history of noncompliance with medical treatment, presenting hazards to health V15.81 Active Problem Acute sinusitis, unspecified 461.9 Active Problem Unspecified synovitis and tenosynovitis 727.00 Active Problem Lateral epicondylitis of elbow 726.32 Active Medications Medication Code System Code Instructions Start Date End Date Status Dosage Chlorthalidone [facility] [address]-14 25 MG Orally Once a day 1 tablet in the morning Phentermine HCl [facility] [address]-74 37.5 MG Orally not defined Flonase [facility] [address]-48 50 MCG/ACT Nasally 2 times a day February 21, 2015 1 spray in each nostril Cortisporin [facility] [address]-92 3.5-79452-3 Otic Three times a day February 21, 2015 4 drops into affected ear Atorvastatin Calcium [facility] [address]-54 20 MG Orally Once a day 1 tablet Levothyroxine Sodium [facility] [address]-70 50 MCG Orally Once a day 1 tablet Ibuprofen [facility] [address]-37 600 MG Orally Three times a day 1 tablet as needed Azithromycin [facility] [address]-77 250 MG Orally Once a day May 15, 2015 May 20, 2015 2 tablets on the first day, then 1 tablet daily for 4 days Aciphex [facility] [address]-50 20 MG Orally Once a day 1 tablet Amlodipine Besylate [facility] [address]-33 10 MG Orally Once a day 1 tablet Procedures Procedure Coding System Code Date STREP A ASSAY W/OPTIC CPT-4 07137 May 15, 2015 Office Visit, Est Pt., Level 3 CPT-4 49545 May 15, 2015 Vital Signs Date/Time: May 15, 2015 Temperature 98.5 F Weight 223.4 lbs Height 63 in BMI 39.57 Index Blood Pressure Diastolic 76 mmHg Blood Pressure Systolic 122 mmHg Cardiac Monitoring Heart Rate 94 bpm Results No Known Results Summary Purpose eClinicalWorks Submission
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
--- OUTSIDE RECORDS SUMMARY | 2016-11-30 08:07 | XMS REPORT ---
Author Author MANDEEP ADAIR [facility] eClinicalWorks Address Unknown Phone Unavailable Care Team Providers Care Cut Off Operator Scorer Name Role Phone MANDEEP ADAIR Unavailable Allergies, Adverse Reactions, Alerts Substance Reaction Event Type N.K.D.A. Info Not Available Non Drug Allergy Problems Problem Type Condition Code Onset Dates Condition Status Assessment Acquired hypothyroidism E03.9 Active Assessment Pure hypercholesterolemia E78.0 Active Assessment GERD (gastroesophageal reflux disease) K21.9 Active Assessment Pain of right shoulder region M25.511 Active Problem Essential hypertension I10 Active Problem Pure hypercholesterolemia E78.0 Active Problem Pain of right shoulder region M25.511 Active Problem Fasciitis 729.4 Active Assessment Essential hypertension I10 Active Problem GERD (gastroesophageal reflux disease) K21.9 Active Problem Acquired hypothyroidism E03.9 Active Medications Medication Code System Code Instructions Start Date End Date Status Dosage Aciphex [facility] [address]-78 20 MG Orally Once a day 1 tablet Orphenadrine Citrate ER [facility] [address]-44 100 MG Orally Once a day MarchApr 09, 2016 1 tablet at bedtime Indomethacin [facility] [address]-27 50 MG Orally Twice a day May 30, 2015 1 capsule with food Flonase [facility] [address]-68 50 MCG/ACT Nasally 2 times a day February 21, 2015 1 spray in each nostril Amlodipine Besylate [facility] [address]-83 10 mg Orally Once a day 1 tablet Chlorthalidone [facility] [address]-94 25 MG Orally Once a day 1 tablet in the morning Levothyroxine Sodium [facility] [address]-79 150 MCG Orally Once a day 1 tablet Ibuprofen [facility] 61147133805 600 MG oral three times a day prn 1 tablet Phentermine HCl [facility] [address]-33 37.5 MG Orally not defined Levothyroxine Sodium [facility] [address]-26 150 MCG Orally Once a day Sep 17, 2015 1 tablet Atorvastatin Calcium [facility] [address]-19 10 mg Orally Once a day 1 tablet Procedures Procedure Coding System Code Date COMPREHEN METABOLIC PANEL CPT-4 29324 March 26, 2016 X-RAY EXAM OF SHOULDER CPT-4 98526 March 26, 2016 ASSAY THYROID STIM HORMONE CPT-4 88553 March 26, 2016 VENIPUNCT, ROUTINE* CPT-4 80249 March 26, 2016 Office Visit, Est Pt., Level 4 CPT-4 88821 March 26, 2016 Vital Signs Date/Time: March 26, 2016 Cardiac Monitoring Heart Rate 92 bpm Weight 220.4 lbs Height 63 in Blood Pressure Diastolic 83 mmHg Blood Pressure Systolic 128 mmHg Results No Known Results Summary Purpose eClinicalWorks Submission
--- OUTSIDE RECORDS SUMMARY | 2016-11-30 08:07 | XMS REPORT ---
Author Author MANDEEP ADAIR [facility] eClinicalWorks Address Unknown Phone Unavailable Care Team Providers Care Palm And Back Forger Name Role Phone MANDEEP ADAIR Unavailable Allergies, Adverse Reactions, Alerts Substance Reaction Event Type N.K.D.A. Info Not Available Non Drug Allergy Problems Problem Type Condition Code Onset Dates Condition Status Assessment Otalgia of right ear H92.01 Active Assessment GERD (gastroesophageal reflux disease) K21.9 Active Assessment Acquired hypothyroidism E03.9 Active Problem Pure hypercholesterolemia E78.0 Active Problem GERD (gastroesophageal reflux disease) K21.9 Active Problem Essential hypertension I10 Active Assessment Essential hypertension I10 Active Assessment Pure hypercholesterolemia E78.0 Active Problem Acquired hypothyroidism E03.9 Active Problem Fasciitis 729.4 Active Medications Medication Code System Code Instructions Start Date End Date Status Dosage Phentermine HCl [facility] [address]-32 37.5 MG Orally not defined Amlodipine Besylate [facility] [address]-17 10 MG Orally Once a day 1 tablet Ibuprofen [facility] 28087720110 600 MG oral three times a day prn 1 tablet Levothyroxine Sodium [facility] [address]-79 175 MCG Orally Once a day Jun 04, 2015 1 tablet Chlorthalidone [facility] [address]-72 25 MG Orally Once a day 1 tablet in the morning Aciphex [facility] [address]-07 20 MG Orally Once a day 1 tablet Amoxicillin [facility] [address]-30 500 MG Orally three times a day Sep 13, 2015 Sep 20, 2015 1 capsule Flonase [facility] [address]-72 50 MCG/ACT Nasally 2 times a day February 21, 2015 1 spray in each nostril Atorvastatin Calcium [facility] [address]-18 10 MG Orally Once a day Jun 04, 2015 1 tablet Procedures Procedure Coding System Code Date ASSAY THYROID STIM HORMONE CPT-4 83869 Sep 13, 2015 Office Visit, Est Pt., Level 4 CPT-4 43495 Sep 13, 2015 COMPREHEN METABOLIC PANEL CPT-4 29835 Sep 13, 2015 VENIPUNCT, ROUTINE* CPT-4 53463 Sep 13, 2015 Vital Signs Date/Time: Sep 13, 2015 Temperature 97.8 F Weight 220.0 lbs Height 63 in BMI 38.97 Index Blood Pressure Diastolic 82 mmHg Blood Pressure Systolic 124 mmHg Cardiac Monitoring Heart Rate 86 bpm Results Name Result Date Reference Range Unit Abnormality Flag ROUTINE VENIPUNCTURE Summary Purpose eClinicalWorks Submission
--- OUTSIDE RECORDS SUMMARY | 2016-11-30 08:07 | XMS REPORT ---
Author Author MANDEEP ADAIR Organization eClinicalWorks Address Unknown Phone Unavailable Care Team Providers Care Business Specialist Name Role Phone MANDEEP ADAIR CP Unavailable Allergies No Known Allergies Problems Problem Type Condition Code Onset Dates Condition Status Problem Essential hypertension I10 Active Problem Pure hypercholesterolemia E78.0 Active Problem Pain of right shoulder region M25.511 Active Problem Fasciitis 729.4 Active Problem GERD (gastroesophageal reflux disease) K21.9 Active Problem Acquired hypothyroidism E03.9 Active Medications Medication Code System Code Instructions Start Date End Date Status Dosage Chlorthalidone [facility] [address]-76 25 MG Orally Once a day 1 tablet in the morning Atorvastatin Calcium [facility] [address]-93 10 mg Orally Once a day 1 tablet Levothyroxine Sodium [facility] [address]-27 150 MCG Orally Once a day 1 tablet Orphenadrine Citrate ER [facility] [address]-83 100 MG Orally Once a day March 1 tablet at bedtime Amlodipine Besylate [facility] [address]-27 5 MG Orally Once a day (10 mg total) 2 tablet Results No Known Results Summary Purpose eClinicalWorks Submission
--- OUTSIDE RECORDS SUMMARY | 2016-11-30 08:08 | XMS REPORT ---
Author SUBHASH Mueller [facility] eClinicalWorks Address Unknown Phone Unavailable Care Team Providers Care Dimpling Machine Operator Name Role Phone SUBHASH WHEAT CP Unavailable Allergies No Known Allergies Problems [...]
--- OUTSIDE RECORDS SUMMARY | 2016-11-30 08:08 | XMS REPORT ---
Author Author MANDEEP ADAIR Organization eClinicalWorks Address Unknown Phone Unavailable Care Team Providers Care Family Life Educator Name Role Phone MANDEEP ADAIR CP Unavailable [...] Instructions Start Date End Date Status Dosage MetFORMIN HCl ER [facility] [address]-94 500 MG Orally Once a day 1 tablet with evening meal Results No Known Results Summary Purpose eClinicalWorks Submission
--- OUTSIDE RECORDS SUMMARY | 2016-11-30 08:08 | XMS REPORT ---
Author Author MANDEEP ADAIR Organization eClinicalWorks Address Unknown Phone Unavailable Care Team Providers Care Supervisor Speech Name Role Phone MANDEEP ADAIR CP Unavailable Allergies No Known Allergies Problems Problem Type Condition Code Onset Dates Condition Status Problem Pure hypercholesterolemia E78.0 Active Problem GERD (gastroesophageal reflux disease) K21.9 Active Problem Essential hypertension I10 Active Assessment Hypothyroidism, unspecified E03.9 Active Problem Acquired hypothyroidism E03.9 Active Problem Fasciitis 729.4 Active Medications Medication Code System Code Instructions Start Date End Date Status Dosage Levothyroxine Sodium [facility]NOTE 3] [address]-62 150 MCG Orally Once a day Sep 17, 2015 1 tablet Results No Known Results Summary Purpose eClinicalWorks Submission
--- OUTSIDE RECORDS SUMMARY | 2016-11-30 08:08 | XMS REPORT ---
Author Author SUBHASH WHEAT [facility] Address [address] [place] [address] Care Team Providers Care Hydrometer Finisher Name Role Phone SUBHASH WHEAT Unavailable PROBLEMS Type Condition ICD9-CM Code [id number] Code Onset Dates Condition Status SNOMED Code Assessment Adenopathy R59.1 Aug, Active 26143312 Assessment Acute pain of right knee M25.561 Aug, Active 63237770 Problem Mixed hyperlipidemia E78.2 Active 782843916 Problem Pain of right shoulder region M25.511 Active 73037301 Problem Acquired hypothyroidism E03.9 Active 853089492 Problem Fasciitis 729.4 Active 00953347 Problem Essential hypertension I10 Active 30964766 Problem GERD (gastroesophageal reflux disease) K21.9 Active 769936374 ALLERGIES Substance Reaction Event Type Date Status N.K.D.A. Unknown Non Drug Allergy Aug, Unknown SOCIAL HISTORY No smoking Hx information available PLAN OF CARE VITAL SIGNS Height 63 in 2016-08-11 Weight 221.4 lbs 2016-08-11 Heart Rate 90 bpm 2016-08-11 Respiratory Rate 20 2016-08-11 BMI 39.21 kg/m2 2016-08-11 Blood pressure systolic 152 mmHg 2016-08-11 Blood pressure diastolic 90 mmHg 2016-08-11 MEDICATIONS Medication Instructions Dosage Frequency Start Date End Date Duration Status Indomethacin 50 MG Orally Twice a day 1 capsule with food 12h May, Active Aciphex 20 MG Orally Once a day 1 tablet 24h Active Levothyroxine Sodium 150 MCG Orally Once a day 1 tablet 24h Active Orphenadrine Citrate ER 100 MG Orally Once a day 1 tablet at bedtime 24h Mar, Active Amlodipine Besylate 10 mg Orally Once a day 1 tablet 24h 90 days Active Ibuprofen 600 MG oral three times a day prn 1 tablet Active Flonase 50 MCG/ACT Nasally 2 times a day 1 spray in each nostril 12h 17 Feb 30 day(s) Active Atorvastatin Calcium 10 mg Orally Once a day 1 tablet 24h Active Chlorthalidone 25 MG Orally Once a day 1 tablet in the morning 24h 90 days Active Amoxicillin 500 MG Orally 3 times a day 1 capsule 8h Aug, Aug, 07 days Active Diclofenac Sodium 75 MG Orally Twice a day 1 tablet with food or milk 12h Aug, Active RESULTS No Results PROCEDURES Procedure Date Ordered Related Diagnosis Body Site Office Visit, Est Pt., Level 3 Aug 11, 2016 IMMUNIZATIONS No Known Immunizations
--- OUTSIDE RECORDS SUMMARY | 2016-11-30 08:08 | XMS REPORT ---
Author MANDEEP Alberts [facility] eClinicalWorks Address Unknown Phone Unavailable Care Team Providers Care Account Management Assistant Name Role Phone MANDEEP ADAIR Unavailable Allergies, Adverse Reactions, Alerts Substance Reaction Event Type N.K.D.A. Info Not Available Non Drug Allergy Problems Problem Type Condition Code Onset Dates Condition Status Assessment Mixed hyperlipidemia E78.2 Active Assessment Essential hypertension I10 Active Assessment Acquired hypothyroidism E03.9 Active Problem Pain of right shoulder region M25.511 Active Problem Essential hypertension I10 Active Problem Mixed hyperlipidemia E78.2 Active Problem Fasciitis 729.4 Active Assessment Acute right-sided back pain, unspecified back location M54.9 Active Problem GERD (gastroesophageal reflux disease) K21.9 Active Problem Acquired hypothyroidism E03.9 Active Medications Medication Code System Code Instructions Start Date End Date Status Dosage Chlorthalidone [facility] [address]-16 25 MG Orally Once a day 1 tablet in the morning Ibuprofen [facility] 46091928872 600 MG oral three times a day prn 1 tablet Levothyroxine Sodium [facility] [address]-42 150 MCG Orally Once a day 1 tablet Amlodipine Besylate [facility] [address]-84 10 mg Orally Once a day 1 tablet Atorvastatin Calcium [facility] [address]-75 10 mg Orally Once a day 1 tablet Baclofen [facility] [address]-34 20 mg Orally Three times a day prn Jul 02, 2016 Jul 07, 2016 1 tablet with food or milk [place] [facility] [address]-87 5-325 MG Orally 3 times a day Jul 02, 2016Jun 1 tablet as needed Procedures Procedure Coding System Code Date THER/PROPH/DIAG INJ, SC/IM CPT-4 57741 Jul 02, 2016 Office Visit, Est Pt., Level 4 CPT-4 29835 Jul 02, 2016 TORADOL (IM) 60 MG/2ML (UP TO 15 MG) CPT-4 J1885 Jul 02, 2016 Vital Signs Date/Time: Jul 02, 2016 Cardiac Monitoring Heart Rate 100 bpm Weight 212 lbs Height 63 in BMI 37.55 Index Blood Pressure Diastolic 96 mmHg Blood Pressure Systolic 144 mmHg Results No Known Results Summary Purpose eClinicalWorks Submission
== END 2016-11-27 07:40 | disposition home or self-care (01) ==
LOC: EDUNIT# 06:08 → ER 06:11
DX: J06.9 Acute upper respiratory infection, unspecified (principal); I10 Essential (primary) hypertension; Z79.899 Other long term (current) drug therapy
CPT/HCPCS: 36415; 80053; 85025; 87804; 99285

== ENCOUNTER 2016-12-29 05:45 | Outpatient (CLI) | payer SELFPAY ==
[~2016-12-29] VITALS: Ht 160 cm; Wt 104.3 kg
[2016-12-29] MEDS ORDERED: LEVO175T5 PO (14:37)
[2016-12-29] MEDS ORDERED: AMLO10TA2 PO (14:37)
[2016-12-29] MEDS ORDERED: ROSU40TA PO (14:37)
== END 2016-12-29 14:41 ==
LOC: PREOP 05:45
PROVIDERS: ATTEND Surgery
DX: Z01.818 Encounter for other preprocedural examination (principal); D50.9 Iron deficiency anemia, unspecified

== ENCOUNTER → 2016-12-30 | Day surgery (SDC) | payer OTHER ==
[~2016-12-30] VITALS: Ht 160 cm; Wt 104.3 kg
[~2016-12-30] MED LIST changes: +FLUMAZENIL (ROMAZICON) 0.1 MG/ML 5 ML VIAL INJ PRN; +HURRICAINE EXT TUBE (BENZOCAINE) ONE; +HURRICAINE EXT TUBE (BENZOCAINE) XX ONE; +LABETALOL HCL 20 MG/4 ML VIAL ONE; +LEVO175T5 PO; +MIDAZOLAM 2 MG/2 ML (VERSED) VIAL IVP PRN; +MIDAZOLAM 2 MG/2 ML (VERSED) VIAL ONE; +NALOXONE 0.4 MG/ML 1 ML (NARCAN) VIAL IVP PRN; +NS IV 1000 ML 1,000 ML IV STA; +ROSU40TA PO; +fentaNYL INJECTION 100 MCG/2 ML AMP IVP PRN; +proPOfol 200 MG/20 ML (DIPRIVAN) VIAL IV ONE
[2016-12-30 11:47] VITALS: BP 131/84
--- NOTE | 2016-12-30 12:59 | Progress Note-Pre Operative ---
Pre-Operative Progress Note H&P Reviewed The H&P was reviewed, patient examined and no changes noted. Date H&P Reviewed: Dec 30, 2016 Time H&P Reviewed: 12:58 Pre-Operative Diagnosis: iron def anemia LILO CORRIGAN DO Dec 30, 2016 12:58
--- NOTE | 2016-12-30 13:53 | Progress Note-Post Operative ---
Post-Operative Progess Note Surgeon (s)/Faith Doctor (s) Surgeon LILO CORRIGAN DO Faith Doctor: na Pre-Operative Diagnosis iron def anemia Post-Operative Diagnosis sigmoid polyp normal egd Post-Op Procedure Note Date of Procedure: Dec 30, 2016 Name of Procedure Performed: egd and colonoscopy c hot bx polypectomy Description of the Procedure: egd colonoscopy with polypectomy Findings of the Procedure normal egd, rectal polyp Anesthesia Type per accelerator operator Estimated blood loss (mL): none Specimen(s) collected/removed sigmoid polyp LILO CORRIGAN DO Dec 30, 2016 13:53
--- NOTE | 2016-12-30 14:00 | Discharge Inst-Simple/Standard ---
Discharge Inst-Standard Patient Instructions/Follow Up Plan of Care/Instructions/FU: Follow up with Dr. Wren in 2 weeks Will need colonoscopy in 5 years or sooner if current condition changes. Activity as Tolerated: Yes Discharge Diet: No Restrictions PAUL MORGAN APRN Dec 30, 2016 14:00
[2016-12-30 14:10] VITALS: BP 140/97
[2016-12-30 14:40] VITALS: BP 139/89
[2016-12-30 14:50] VITALS: BP 139/89
--- NOTE | 2016-12-31 07:54 | OPERATIVE REPORT ---
DATE OF SERVICE: PREOPERATIVE DIAGNOSIS: Iron deficiency anemia. POSTOPERATIVE DIAGNOSIS: Sigmoid colon polyp, normal EGD. PROCEDURE: EGD and colonoscopy with hot biopsy polypectomy. SURGEON: Lilo Wren DO ANESTHESIA: Per DITCH REPAIRER. ESTIMATED BLOOD LOSS: None. COMPLICATIONS: None. INDICATIONS: The patient is a 36-year-old female who was recommended to have EGD and colonoscopy due to iron deficiency anemia. She understands risks and benefits of procedure and wished to proceed with the procedure. Consent was in the chart. PROCEDURE: The patient was taken to the endoscopy suite, placed in left lateral recumbent position. A timeout was performed. The scope was inserted in mouth, down into esophagus, stomach and into the duodenum without difficulty. There were no polyps, mass or ulcerations within the duodenum. The scope was slowly retracted back into the stomach, which had normal appearance. There is no erythematous changes. No polyps, mass or ulcerations. The scope was retroflexed, noting no hiatal hernia, no other pathology. The scope was returned to its normal position, slowly withdrawn to the distal esophagus. There is no polyps, mass or ulceration. The scope was slowly retracted until completely removed, noting no other pathology. Digital rectal exam was performed. There were no palpable polyps, mass or ulcerations. Some slight hemorrhoidal disease. The scope was inserted in the rectum and advanced all the way to the cecum with minimal difficulty. Prep was adequate. Ileocecal valve was intubated and terminal ileum had normal appearance. The scope was slowly retracted back. No polyps, mass or ulcerations within the cecum, ascending, transverse, sigmoid and descending colon. At the sigmoid colon near the rectum, there is a small polyp, a hot biopsy polypectomy is performed. The scope was slowly retracted back into the rectum, where it was also retroflexed, noting no other pathology. The scope was returned to its normal position. The scope was then slowly withdrawn until completely removed. The patient tolerated the procedure well without any complications. She will follow up in the office in 2 weeks to discuss pathology results. We would recommend repeat colonoscopy in 5 years. Job ID: [id number] DocumentID: [id number] Dictated Date: 12/30/2016 13:54:15 Senior Construction Project Manager Date: 12/31/2016 03:25:08 Dictated By: LILO WREN DO [facility]
== END | disposition home or self-care (01) ==
LOC: SDC 11:18
PROVIDERS: ATTEND Surgery
DX: K63.5 Polyp of colon (principal); D50.9 Iron deficiency anemia, unspecified
CPT/HCPCS: 84703; 88305

== ENCOUNTER 2017-01-26 14:26 | Emergency (ER) | payer SELFPAY ==
[~2017-01-26] VITALS: Ht 160 cm; Wt 103.0 kg
[~2017-01-26 14:26] MED LIST changes: -FLUMAZENIL (ROMAZICON) 0.1 MG/ML 5 ML VIAL INJ PRN; -HURRICAINE EXT TUBE (BENZOCAINE) ONE; -HURRICAINE EXT TUBE (BENZOCAINE) XX ONE; -LABETALOL HCL 20 MG/4 ML VIAL ONE; -MIDAZOLAM 2 MG/2 ML (VERSED) VIAL IVP PRN; -MIDAZOLAM 2 MG/2 ML (VERSED) VIAL ONE; -NALOXONE 0.4 MG/ML 1 ML (NARCAN) VIAL IVP PRN; -NS IV 1000 ML 1,000 ML IV STA; -fentaNYL INJECTION 100 MCG/2 ML AMP IVP PRN; -proPOfol 200 MG/20 ML (DIPRIVAN) VIAL IV ONE
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
[2017-01-26] MEDS ORDERED: HYDROcodone/APAP 5 MG/325 MG (LORTAB) TAB PO ONE (14:45)
[2017-01-26] MEDS ORDERED: PROCHLORPERAZINE 10 MG/2ML INJ (COMPAZINE) IV ONE (14:45)
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
[2017-01-26] MEDS ORDERED: NAPR500T3 PO (15:21)
[2017-01-26 15:22] VITALS: BP 170/100
== END 2017-01-26 15:27 | disposition home or self-care (01) ==
LOC: EDUNIT# 14:26 → ER 14:29
DX: S00.83XA Contusion of other part of head, initial encounter (principal); H92.01 Otalgia, right ear; I10 Essential (primary) hypertension; Z79.899 Other long term (current) drug therapy; Y04.0XXA Assault by unarmed brawl or fight, initial encounter; Y92.009 Unspecified place in unspecified non-institutional (private) residence as the place of occurrence of the external cause; Y99.8 Other external cause status
CPT/HCPCS: 70450; 99282

== ENCOUNTER 2017-01-30 15:35 | Emergency (ER) | payer SELFPAY ==
[~2017-01-30] VITALS: Ht 160 cm; Wt 106.6 kg
[~2017-01-30 15:35] MED LIST changes: +NAPR500T3 PO
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
[2017-01-30 16:25] VITALS: BP 154/94
== END 2017-01-30 16:25 | disposition home or self-care (01) ==
LOC: EDUNIT# 15:35 → ER 15:37
DX: H11.31 Conjunctival hemorrhage, right eye (principal); I10 Essential (primary) hypertension; Z79.899 Other long term (current) drug therapy
CPT/HCPCS: 99282

== ENCOUNTER 2017-06-14 21:31 | Emergency (ER) | payer SELFPAY ==
[~2017-06-14] VITALS: Ht 160 cm; Wt 115.7 kg
--- OUTSIDE RECORDS SUMMARY | 2017-06-14 21:38 | XMS REPORT ---
Author Author MANDEEP ADAIR [facility] Address [address] [place] [address] Care Team Providers Care Milking Machine Technician Name Role Phone MANDEEP ADAIR Unavailable PROBLEMS Type Condition ICD9-CM Code UXM12-EU Code Onset Dates Condition Status SNOMED Code Problem Fasciitis 729.4 Active 92792737 Problem Iron deficiency anemia due to chronic blood loss D50.0 Active 01980551 Problem Mixed hyperlipidemia E78.2 Active 339968682 Problem Acquired hypothyroidism E03.9 Active 733413901 Problem Essential hypertension I10 Active 09520001 Problem Pain of right shoulder region M25.511 Active 00811478 Problem GERD (gastroesophageal reflux disease) K21.9 Active 476669337 ALLERGIES No Known Allergies SOCIAL HISTORY Never Assessed PLAN OF CARE Activity Details 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:wrist 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 VITAL SIGNS Height 63 in 2016-10-15 Weight 233.2 lbs 2016-10-15 Temperature 98.8 degrees Fahrenheit 2016-10-15 Heart Rate 88 bpm 2016-10-15 Respiratory Rate 20 2016-10-15 BMI 41.31 kg/m2 2016-10-15 Blood pressure systolic 140 mmHg 2016-10-15 Blood pressure diastolic 78 mmHg 2016-10-15 MEDICATIONS Medication Instructions Dosage Frequency Start Date End Date Duration Status Levothyroxine Sodium 150 MCG Orally Once a day 1 tablet 24h Active Ibuprofen 600 MG oral three times a day prn 1 tablet Active Chlorthalidone 25 MG Orally Once a day 1 tablet in the morning 24h 90 days Active Orphenadrine Citrate ER 100 MG Orally Once a day 1 tablet at bedtime 24h Mar, Active Aciphex 20 MG Orally Once a day 1 tablet 24h Active Atorvastatin Calcium 10 mg Orally Once a day 1 tablet 24h Active Flonase 50 MCG/ACT Nasally 2 times a day 1 spray in each nostril 12h 17 Feb 30 day(s) Active Amlodipine Besylate 10 mg Orally Once a day 1 tablet 24h 90 days Active RESULTS Name Result Date Reference Range Xray : Wrist, Left 3 views (IN HOUSE) 2016-10-15 PROCEDURES Procedure Date Ordered Result Body Site X-RAY EXAM OF WRIST Oct 15, 2016 IMMUNIZATIONS No Known Immunizations MEDICAL (GENERAL) HISTORY Type Description Date Medical History hypertension Medical History uterine fibroids Medical History hyperlipidemia Medical History obesity Medical History thyroid disorder-hypothyroid Medical History dysmenorrhea Medical History skin disorder-skin tags Medical History Goiter, unspecified Medical History Personal history of noncompliance with medical treatment, presenting hazards to health Surgical History tonsillectomy Surgical History tubal ligation Hospitalization History Hospitalization for surgery only
--- OUTSIDE RECORDS SUMMARY | 2017-06-14 21:38 | XMS REPORT ---
Author Author MANDEEP ADAIR [facility] Address [address] [place] [address] Care Team Providers Care Sourcing Specialist Name Role Phone MANDEEP ADAIR Unavailable PROBLEMS Type Condition ICD9-CM Code TLE39-WX Code Onset Dates Condition Status SNOMED Code Problem Fasciitis 729.4 Active 43428293 Problem Iron deficiency anemia due to chronic blood loss D50.0 Active 50423117 Problem Mixed hyperlipidemia E78.2 Active 903313000 Problem Acquired hypothyroidism E03.9 Active 430566729 Problem Essential hypertension I10 Active 86985635 Problem Pain of right shoulder region M25.511 Active 25274059 Problem GERD (gastroesophageal reflux disease) K21.9 Active 291821010 ALLERGIES Unknown Allergies SOCIAL HISTORY No smoking Hx information available PLAN OF CARE VITAL SIGNS MEDICATIONS Unknown Medications RESULTS No Results PROCEDURES No Known procedures IMMUNIZATIONS No Known Immunizations
[2017-06-14] MEDS ORDERED: NS IV 1000 ML 1,000 ML IV ONE (22:08)
--- NOTE | 2017-06-14 22:10 | ED GI ---
General Chief Complaint: Abdominal/GI Problems Stated Complaint: DIARRHEA UPSET STOMACH FEVER Nursing Triage Note: REPORTS 4 DAYS OF ABD CRAMPING WITH DIARRHEA. CAN NOT HOLD FLUIDS IN REPORTING DIARRHEA WITH PO INTAKE. C/O NAUSEA. SEEN AT [facility] THURSDAY WITH BUCKLEY/ABD CRAMPING. Sepsis Screen: No Definite Risk Source of Information: Patient Exam Limitations: No Limitations History of Present Illness Time Seen By Provider: 22:10 Initial Comments 37-year-old female patient presents to the emergency department with complaints of 4 day onset of abdominal cramping and diarrhea. Patient states today she is unable to keep anything down. States she was seen on Thursday at [facility] for headache and abdominal cramping. States she was sent home from work today due to illness Timing/Duration: 3-4 Days, Constant Severity/Quality: Cramping Location: LUQ, Epigastric Activities at Onset: None Modifying Factors: Worsens With Eating Allergies and Home Medications Allergies Coded Allergies: No Known Drug Allergies (Unverified , 12/29/16) Home Medications Amlodipine Besylate 10 Mg Tablet, 10 MG PO DAILY, (Reported) Cephalexin 500 Mg Capsule, 500 MG PO TID, #21 Ref 0 Prescribed by: SANDRA ANDREWS on 06/14/17 2340 Hyoscyamine Sulfate 0.125 Mg Tab.subl, 0.125 MG SL Q6H PRN for SPASMS, #10 Ref 0 Prescribed by: SANDRA ANDREWS on 06/14/17 2340 Levothyroxine Sodium 50 Mcg Tablet, 1 EACH PO DAILY, #30 Prescribed by: ROGELIO WILKINS on 02/27/14 1323 Ondansetron 8 Mg Tab.rapdis, 8 MG PO Q6H PRN for NAUSEA/VOMITING-1ST LINE, #10 Ref 0 Prescribed by: SANDRA ANDREWS on 06/14/17 2340 Rosuvastatin Calcium 40 Mg Tablet, 40 MG PO DAILY, (Reported) Review of Systems Constitutional: chills, No fever, malaise, other (fatigue) EENTM: No Symptoms Reported Respiratory: Denies Cough, Denies Shortness of Air Cardiovascular: Denies Chest Pain, Denies Lightheadedness, Denies Palpitations , Denies Syncope Gastrointestinal: See HPI, Denies Abdomen Distended, Abdominal Pain, Denies Blood Streaked Stools, Denies Constipated, Diarrhea, Nausea, Poor Appetite, Poor Fluid Intake, Denies Rectal Bleeding, Vomiting Genitourinary: Denies Burning, Denies Discharge, Denies Frequency, Denies Flank Pain, Denies Hematuria Musculoskeletal: no symptoms reported Skin: no symptoms reported Psychiatric/Neurological: No Symptoms Reported All Other Systems Reviewed Negative Unless Noted: Yes (Negative excepted noted.) Past Lcwpaey-Kobxoa-Qztyfv Hx Patient Social History Alcohol Use: Denies Use Recreational Drug Use: No Smoking Status: Former Smoker Former Smoker, Quit: Jun 07, 2002 2nd Hand Smoke Exposure: Yes Recent Foreign Travel: No Contact w/Someone Who Travel: No Recent Infectious Disease Expo: No Recent Hopitalizations: No Immunizations Up To Date Tetanus Booster (TDap): Unknown Date of Pneumonia Vaccine: Apr 06, 2012 Seasonal Allergies Seasonal Allergies: Yes (MILD) Surgeries History of Surgeries: Yes Surgeries: Tonsillectomy, Tubal Ligation Respiratory History of Respiratory Disorde: No Cardiovascular History of Cardiac Disorders: Yes Cardiac Disorders: High Cholesterol, Hypertension Neurological History of Neurological Disord: Yes Neurological Disorders: Headaches /Migraines Reproductive System : No Last Menstrual Period: Jun 08, 2017 Hx Reproductive Disorders: No Sexually Transmitted Disease: No HIV/AIDS: No Genitourinary History of Genitourinary Disor: No Gastrointestinal History of Gastrointestinal Di: No Musculoskeletal History of Musculoskeletal Dis: Yes Musculoskeletal Disorders: Arthritis Endocrine History of Endocrine Disorders: Yes Endocrine Disorders: Hypothyroidsim HEENT History of HEENT Disorders: No Loss of Vision: Denies Hearing Impairment: Denies Cancer History of Cancer: No Psychosocial History of Psychiatric Problem: Yes Behavioral Health Disorders: Anxiety Integumentary History of Skin or Integumenta: No Blood Transfusions History of Blood Disorders: Yes (IRON DEFF ANEMIA) Adverse Reaction to a Blood Tr: No (HAS HAD BLOOD WITH NO PROBLEMS) Reviewed Nursing Assessment Reviewed/Agree w Nursing PMH: Yes Family Medical History Significant Family History: No Pertinent Family Hx Family Medial History: Cardiovascular disease 19 FATHER 19 MOTHER Congenital heart disease 19 MOTHER Hypertension 19 MOTHER Myocardial infarction 19 MOTHER Physical Exam Vital Signs VS - Last 72 Hours, by Label 06/14/17 06/14/17 06/14/17 21:40 22:48 23:57 Temp 99.0 99.0 99.0 Pulse 94 95 Resp 20 18 B/P (MAP) 148/106 Pulse Ox 100 100 O2 Delivery Room Air Room Air Capillary Refill : Less Than 3 Seconds General Appearance: WD/WN, no apparent distress HEENT: PERRL/EOMI, pharynx normal Neck: supple, normal inspection Respiratory: lungs clear, normal breath sounds, no respiratory distress, no accessory muscle use Cardiovascular: normal peripheral pulses, regular rate, rhythm, no edema, no murmur Peripheral Pulses: 2+ Dorsalis Pedis (R), 2+ Left Dors-Pedis (L), 2+ Radial Pulses (R), 2+ Radial Pulses (L) Gastrointestinal: normal bowel sounds, soft, no organomegaly, No distended, No guarding, No rebound, tenderness (LUQ and epigastric) Back: normal inspection, no CVA tenderness Neurologic/Psychiatric: alert, oriented x 3, other (Patient is very tearful. When asked why she is crying she states "because I am embarrassed. I have never had to have one (IV) put in my neck.") Skin: normal color, warm/dry Progress/Results/Core Measures Results/Orders Lab Results Laboratory Tests Test 06/14/17 22:20 06/14/17 22:53 Range/Units White Blood Count 9.6 4.3-11.0 10^3/uL Red Blood Count 4.05 L 4.35-5.85 10^6/uL Hemoglobin 8.3 L 11.5-16.0 G/DL Hematocrit 29 L 35-52 % Mean Corpuscular Volume 70 L 80-99 FL Mean Corpuscular Hemoglobin 21 L 25-34 PG Mean Corpuscular Hemoglobin Concent 29 L 32-36 G/DL Red Cell Distribution Width 18.9 H 10.0-14.5 % Platelet Count 403 H 130-400 10^3/uL Mean Platelet Volume 10.3 7.4-10.4 FL Neutrophils (%) (Auto) 70 42-75 % Lymphocytes (%) (Auto) 15 12-44 % Monocytes (%) (Auto) 12 0-12 % Eosinophils (%) (Auto) 2 0-10 % Basophils (%) (Auto) 1 0-10 % Neutrophils # (Auto) 6.8 1.8-7.8 X 10^3 Lymphocytes # (Auto) 1.4 1.0-4.0 X 10^3 Monocytes # (Auto) 1.1 H 0.0-1.0 X 10^3 Eosinophils # (Auto) 0.2 0.0-0.3 10^3/uL Basophils # (Auto) 0.1 0.0-0.1 10^3/uL Sodium Level 137 135-145 MMOL/L Potassium Level 3.9 3.6-5.0 MMOL/L Chloride Level 104 98-107 MMOL/L Carbon Dioxide Level 22 21-32 MMOL/L Anion Gap 11 5-14 MMOL/L Blood Urea Nitrogen 11 7-18 MG/DL Creatinine 0.79 0.60-1.30 MG/DL Estimat Glomerular Filtration Rate > 60 BUN/Creatinine Ratio 14 Glucose Level 90 70-105 MG/DL Calcium Level 9.2 8.5-10.1 MG/DL Total Bilirubin 0.4 0.1-1.0 MG/DL Aspartate Amino Transf (AST/SGOT) 19 5-34 U/L Alanine Aminotransferase (ALT/SGPT) 15 0-55 U/L Alkaline Phosphatase 89 40-136 U/L Total Protein 7.4 6.4-8.2 GM/DL Albumin 4.2 3.2-4.5 GM/DL Lipase 16 8-78 U/L Urine Color YELLOW Urine Clarity VERY CLOUDY H Urine pH 6 5-9 Urine Specific [place] 1.020 1.016-1.022 Urine Protein 1+ H NEGATIVE Urine Glucose (UA) NEGATIVE NEGATIVE Urine Ketones NEGATIVE NEGATIVE Urine Nitrite NEGATIVE NEGATIVE Urine Bilirubin NEGATIVE NEGATIVE Urine Urobilinogen NORMAL NORMAL MG/DL Urine Leukocyte Esterase 3+ H NEGATIVE Urine RBC (Auto) 1+ H NEGATIVE Urine RBC 2-5 H /HPF Urine WBC TNTC H /HPF Urine Squamous Epithelial Cells 25-50 H /HPF Urine Crystals NONE /LPF Urine Bacteria FEW H /HPF Urine Casts NONE /LPF Urine Mucus NEGATIVE /LPF Urine Trichomonas LARGE H /HPF Urine Culture Indicated YES My Orders Orders - SANDRA ANDREWS Cbc With Automated Diff (06/14/17 22:08) Comprehensive Metabolic Panel (06/14/17 22:08) Lipase (06/14/17 22:08) Ua Culture If Indicated (06/14/17 22:08) Saline Lock/Iv-Start (06/14/17 22:08) Urine Bedside (06/14/17 22:08) Ns Iv 1000 Ml (Sodium Chloride 0.9%) (06/14/17 22:08) Ondansetron Injection (Zofran Injectio (06/14/17 22:15) Ketorolac Injection (Toradol Injection) (06/14/17 22:33) Urine Culture (06/14/17 22:53) Rx-Hydrocodone/Apap 5-325 Mg (Rx-Vicodin (06/14/17 23:45) Rx-Ondansetron Po (Rx-Zofran Po) (06/14/17 23:42) Rx-Hyoscyamine Tab (Rx-Levsin Sl) (06/14/17 23:42) Metronidazole Tablet (Flagyl Tablet) (06/14/17 23:45) Medications Given in ED Current Medications Medications Dose Ordered Sig/Shilpa Route Start Time Stop Time Status Last Admin Dose Admin Acetaminophen/ Hydrocodone Bitart 1 ea Q4H PRN PO 06/14/17 23:45 06/14/17 23:56 DC 06/14/17 23:52 1 EA Metronidazole 2,000 mg ONCE ONCE PO 06/14/17 23:45 06/14/17 23:46 DC 06/14/17 23:52 2,000 MG Ondansetron HCl 4 mg ONCE ONCE IVP 06/14/17 22:15 06/14/17 22:16 DC 06/14/17 22:48 4 MG Sodium Chloride 1,000 ml @ 0 mls/hr Q0M ONCE IV 06/14/17 22:08 06/14/17 22:10 DC 06/14/17 22:48 999 MLS/HR Vital Signs/I&O Vital Sign - Last 12Hours 06/14/17 06/14/17 06/14/17 21:40 22:48 23:57 Temp 99.0 99.0 99.0 Pulse 94 95 Resp 20 18 B/P (MAP) 148/106 Pulse Ox 100 100 O2 Delivery Room Air Room Air Blood Pressure Mean: 120 Departure Communication (Admissions) Progress Notes Patient seen and evaluated. Patient is very tearful. When asked why she is crying she states "because I am embarrassed. I have never had to have one (IV) put in my neck." I have advised the patient that due to vomiting and diarrhea she is most likely dehydrated and that dehydration makes it more difficult to place an IV or draw labs. Patient verbalizes understanding and stops crying. Labs, IVF, zofran, and toradol ordered. 2335 All laboratory findings discussed with the patient. Patient reports feeling better with IV fluids, Zofran, and Toradol. I have advised the patient that we will give her 2 grams of metronidazole orally for the Trichomonas infection in the emergency department. I've also discussed with her that she does need to notify all sexual partners of the infection so that they may be tested and treated for Trichomonas. Patient is to follow-up with her PCP within the next 7 days for recheck and to make sure the trichomonas infection has resolved completely. All return precautions were discussed with the patient as described in the discharge instructions of this report. Patient voices understanding and agrees with the treatment plan. Patient case discussed with Dr. Layton, he agrees with the plan of care. Patient ambulated from the emergency department without difficulty. Impression Impression: Primary Impression: Urinary tract infection Qualified Codes: N30.01 - Acute cystitis with hematuria Additional Impression: Infection due to trichomonas Disposition: HOME, SELF-CARE Condition: Improved Departure-Patient Inst. Decision time for Depature: 23:37 Referrals: [facility] (PCP/Family) Primary Care Physician Patient Instructions: Trichomoniasis (DC), Urinary Tract Infection, Adult (DC) Add. Discharge Instructions: All discharge instructions reviewed with patient and/or family. Voiced understanding. Medications as instructed. Tylenol extra strength over-the- counter as directed for pain. Ibuprofen 800 mg by mouth every 8 hours as a for pain. Drink plenty of fluids. No intercourse until rechecked by your primary care provider. Follow-up with your family practitioner within the next 7 days for recheck. Notify all sexual partners of Trichomonas infection and need for testing/treatment. Return to the emergency department for worsened pain, fever , vomiting, abdominal swelling, inability to urinate, painful urination, or any other concerns. Scripts Ondansetron (Ondansetron Odt) 8 Mg Tab.rapdis 8 MG PO Q6H Y for NAUSEA/VOMITING-1ST LINE, #10 TAB 0 Refills Prov: SANDRA ANDREWS 06/14/17 Hyoscyamine Sulfate (Levsin-Sl) 0.125 Mg Tab.subl 0.125 MG SL Q6H Y for SPASMS, #10 TAB 0 Refills Prov: SANDRA ANDREWS 06/14/17 Cephalexin (Cephalexin) 500 Mg Capsule 500 MG PO TID, #21 CAP 0 Refills Prov: SANDRA ANDREWS 06/14/17 Work/School Note: Work Release Form Date Seen in the Emergency Department: Jun 14, 2017 Return to Work: Jun 16, 2017 SANDRA ANDREWS Jun 14, 2017 22:10
[2017-06-14] MEDS ORDERED: ONDANSETRON 4 MG/2 ML (SDV) Z0FRAN IVP ONE (22:15)
[2017-06-14 22:28] LABS: BASOPHILS # (AUTO) 0.1 10^3/uL (0.0-0.1); BASOPHILS % (AUTO) 1 % (0-10); EOSINOPHILS # (AUTO) 0.2 10^3/uL (0.0-0.3); EOSINOPHILS % (AUTO) 2 % (0-10); LYMPHOCYTES # (AUTO) 1.4 X 10^3 (1.0-4.0); LYMPHOCYTES % (AUTO) 15 % (12-44); MEAN CORPUSCULAR HEMOGLOBIN 21 PG (25-34); MEAN CORPUSCULAR HGB CONC 29 G/DL (32-36); MEAN CORPUSCULAR VOLUME 70 FL (80-99); MEAN PLATELET VOLUME 10.3 FL (7.4-10.4); MONOCYTES # (AUTO) 1.1 X 10^3 (0.0-1.0); MONOCYTES % (AUTO) 12 % (0-12); NEUTROPHILS # (AUTO) 6.8 X 10^3 (1.8-7.8); NEUTROPHILS % (AUTO) 70 % (42-75); PLATELET COUNT 403 10^3/uL (130-400); RED BLOOD COUNT 4.05 10^6/uL (4.35-5.85); RED CELL DISTRIBUTION WIDTH 18.9 % (10.0-14.5); WHITE BLOOD COUNT 9.6 10^3/uL (4.3-11.0)
[2017-06-14] MEDS ORDERED: KETOROLAC 30 MG/ML VIAL IVP STA (22:33)
[2017-06-14 22:48] LABS: ALANINE AMINOTRANSFERASE 15 U/L (0-55); ALBUMIN 4.2 GM/DL (3.2-4.5); ANION GAP 11 MMOL/L (5-14); ASPARTATE AMINO TRANSFERASE 19 U/L (5-34); BILIRUBIN,TOTAL 0.4 MG/DL (0.1-1.0); BLOOD UREA NITROGEN 11 MG/DL (7-18); BUN/CREATININE RATIO 14; CALCIUM 9.2 MG/DL (8.5-10.1); CARBON DIOXIDE 22 MMOL/L (21-32); CHLORIDE 104 MMOL/L (98-107); CREATININE SERUM 0.79 MG/DL (0.60-1.30); GFR ESTIMATED > 60; GLUCOSE 90 MG/DL (70-105); LIPASE 16 U/L (8-78); POTASSIUM 3.9 MMOL/L (3.6-5.0); SODIUM 137 MMOL/L (135-145); TOTAL PROTEIN 7.4 GM/DL (6.4-8.2)
[2017-06-14 23:05] LABS: BILIRUBIN,URINE NEGATIVE (NEGATIVE); KETONES,URINE NEGATIVE (NEGATIVE); LEUKOCYTE ESTERASE ,URINE 3+ (NEGATIVE); NITRITE,URINE NEGATIVE (NEGATIVE); PH,URINE 6 (5-9); PROTEIN,URINE 1+ (NEGATIVE); UROBILINOGEN,URINE NORMAL (NORMAL)
[2017-06-14 23:14] LABS: SQUAMOUS EPITHELIAL CELL,UR 25-50 /HPF; TRICHOMONAS,URINE LARGE /HPF; WBC,URINE TNTC /HPF
[2017-06-14] MEDS ORDERED: ONDA8TAB13 PO (23:40)
[2017-06-14] MEDS ORDERED: CEPH500C PO (23:40)
[2017-06-14] MEDS ORDERED: HYOS0.1283 SL (23:40)
[2017-06-14] MEDS ORDERED: RX-HYOSCYAMINE 0.125 MG SL (LEVSIN) PPK#6 SL STA (23:42)
[2017-06-14] MEDS ORDERED: RX-ONDANSETRON 4 MG ODT (ZOFRAN) PPK #4 PO STA (23:42)
[2017-06-14] MEDS ORDERED: RX-HYDROCODONE/APAP 5/325 MG #4 TAB PK PO PRN (23:45)
[2017-06-14] MEDS ORDERED: metroNIDAZOLE 500 MG (FLAGYL) TAB PO ONE (23:45)
[2017-06-14 23:57] VITALS: BP 135/95
== END 2017-06-14 23:56 | disposition home or self-care (01) ==
LOC: EDUNIT# 21:31 → ER 21:33
DX: A59.09 Other urogenital trichomoniasis (principal); G43.909 Migraine, unspecified, not intractable, without status migrainosus; E03.9 Hypothyroidism, unspecified; E78.00 Pure hypercholesterolemia, unspecified; I10 Essential (primary) hypertension; F41.9 Anxiety disorder, unspecified; Z98.51 Tubal ligation status; Z90.89 Acquired absence of other organs; Z87.891 Personal history of nicotine dependence; Z82.49 Family history of ischemic heart disease and other diseases of the circulatory system
CPT/HCPCS: 36415; 80053; 81000; 83690; 84703; 85025; 87088

== ENCOUNTER 2017-08-26 12:24 | Emergency (ER) | payer SELFPAY ==
[~2017-08-26] VITALS: Ht 160 cm; Wt 115.7 kg
[~2017-08-26 12:24] MED LIST changes: +CEPH500C PO; +HYOS0.1283 SL; +NAPR-1071 PO; -NAPR500T PO; -NAPR500T3 PO; +NAPR500T4 PO; +ONDA8TAB13 PO
[2017-08-26] MEDS ORDERED: ASPIRIN 81 MG CHEW (CHILDREN'S ASA) PO ONE (12:30)
--- NOTE | 2017-08-26 12:38 | ED Chest Pain ---
General Chief Complaint: Chest Pain Stated Complaint: CHEST PAIN,SOA Source: patient Exam Limitations: no limitations History of Present Illness Time seen by provider: 12:36 Initial Comments To ER with left sternal border chest pain dull in nature constant since yesterday morning worsened By picking up and holding her grandchild. She does have associated shortness of breath with this. No nausea. No personal history of heart disease. She is crying and tearful upon arrival to ER and states that she's been under significant stress at home lately Timing/Duration: 1-2 days Severity/Quality: moderate, dull Location: central Radiation: no radiation ASA po C++ QUANT DEVELOPER: No NTG SL C++ QUANT DEVELOPER: No Associated Symptoms: No nausea/vomiting, shortness of breath, No syncope Allergies and Home Medications Allergies Coded Allergies: No Known Drug Allergies (Unverified , 12/29/16) Home Medications Amlodipine Besylate 10 Mg Tablet, 10 MG PO DAILY, (Reported) Cephalexin 500 Mg Capsule, 500 MG PO TID, #21 Ref 0 Prescribed by: SANDRA ANDREWS on 06/14/17 2340 Hyoscyamine Sulfate 0.125 Mg Tab.subl, 0.125 MG SL Q6H PRN for SPASMS, #10 Ref 0 Prescribed by: SANDRA ANDREWS on 06/14/17 2340 Iron,Carbonyl/Ascorbic Acid 1 Each Tablet, 1 EACH PO BID, #20 Prescribed by: EM PIERCE on 08/26/17 1330 Levothyroxine Sodium 50 Mcg Tablet, 1 EACH PO DAILY, #30 Prescribed by: ROGELIO WILKINS on 02/27/14 1323 Ondansetron 8 Mg Tab.rapdis, 8 MG PO Q6H PRN for NAUSEA/VOMITING-1ST LINE, #10 Ref 0 Prescribed by: SANDRA ANDREWS on 06/14/17 2340 Rosuvastatin Calcium 40 Mg Tablet, 40 MG PO DAILY, (Reported) Review of Systems Constitutional: see HPI EENTM: No Symptoms Reported Respiratory: No Symptoms Reported, See HPI Cardiovascular: See HPI, Chest Pain Gastrointestinal: No Symptoms Reported Genitourinary: No Symptoms Reported Musculoskeletal: no symptoms reported Skin: no symptoms reported Psychiatric/Neurological: No Symptoms Reported Endocrine: No Symptoms Reported Past Wavqums-Ygduvl-Kfqyud Hx Patient Social History Former Smoker, Quit: Jun 07, 2002 2nd Hand Smoke Exposure: Yes Recent Foreign Travel: No Contact w/Someone Who Travel: No Recent Hopitalizations: No Immunizations Up To Date Tetanus Booster (TDap): Unknown Date of Pneumonia Vaccine: Apr 06, 2012 Seasonal Allergies Seasonal Allergies: Yes (MILD) Surgeries History of Surgeries: Yes Surgeries: Tonsillectomy, Tubal Ligation Respiratory History of Respiratory Disorde: No Cardiovascular History of Cardiac Disorders: Yes Cardiac Disorders: High Cholesterol, Hypertension Neurological History of Neurological Disord: Yes Neurological Disorders: Headaches /Migraines Reproductive System Hx Reproductive Disorders: No Sexually Transmitted Disease: No HIV/AIDS: No Genitourinary History of Genitourinary Disor: No Gastrointestinal History of Gastrointestinal Di: No Musculoskeletal History of Musculoskeletal Dis: Yes Musculoskeletal Disorders: Arthritis Endocrine History of Endocrine Disorders: Yes Endocrine Disorders: Hypothyroidsim HEENT History of HEENT Disorders: No Loss of Vision: Denies Hearing Impairment: Denies Cancer History of Cancer: No Psychosocial History of Psychiatric Problem: Yes Behavioral Health Disorders: Anxiety Integumentary History of Skin or Integumenta: No Blood Transfusions History of Blood Disorders: Yes (IRON DEFF ANEMIA) Adverse Reaction to a Blood Tr: No (HAS HAD BLOOD WITH NO PROBLEMS) Family Medical History Significant Family History: No Pertinent Family Hx Family Medial History: Cardiovascular disease 19 FATHER 19 MOTHER Congenital heart disease 19 MOTHER Hypertension 19 MOTHER Myocardial infarction 19 MOTHER Physical Exam Vital Signs Vital Sign - Last 12Hours 08/26/17 12:34 Temp 97.0 Pulse 93 Resp 20 B/P (MAP) 176/99 (124) Pulse Ox 99 O2 Delivery Room Air Capillary Refill : General Appearance: No Apparent Distress, WD/WN, Anxious (tearful) HEENT: PERRL/EOMI, TMs Normal Neck: Full Range of Motion, Normal Inspection Respiratory: Normal Breath Sounds, No Accessory Muscle Use, No Respiratory Distress, Other (fifth intercostal space left sternal border tenderness to palpation) Cardiovascular: Regular Rate, Rhythm, Normal Peripheral Pulses Gastrointestinal: Normal Bowel Sounds, Non Tender, Soft Extremity: Normal Capillary Refill, Normal Inspection Neurologic/Psychiatric: Alert, Oriented x3, No Motor/Sensory Deficits Progress/Results/Core Measures Results/Orders Lab Results Laboratory Tests Test 08/26/17 12:50 Range/Units White Blood Count 6.7 4.3-11.0 10^3/uL Red Blood Count 3.91 L 4.35-5.85 10^6/uL Hemoglobin 7.5 L 11.5-16.0 G/DL Hematocrit 27 L 35-52 % Mean Corpuscular Volume 68 L 80-99 FL Mean Corpuscular Hemoglobin 19 L 25-34 PG Mean Corpuscular Hemoglobin Concent 28 L 32-36 G/DL Red Cell Distribution Width 18.0 H 10.0-14.5 % Platelet Count 418 H 130-400 10^3/uL Mean Platelet Volume 10.4 7.4-10.4 FL Neutrophils (%) (Auto) 69 42-75 % Lymphocytes (%) (Auto) 16 12-44 % Monocytes (%) (Auto) 10 0-12 % Eosinophils (%) (Auto) 4 0-10 % Basophils (%) (Auto) 1 0-10 % Neutrophils # (Auto) 4.7 1.8-7.8 X 10^3 Lymphocytes # (Auto) 1.1 1.0-4.0 X 10^3 Monocytes # (Auto) 0.6 0.0-1.0 X 10^3 Eosinophils # (Auto) 0.3 0.0-0.3 10^3/uL Basophils # (Auto) 0.1 0.0-0.1 10^3/uL Prothrombin Time 13.5 12.2-14.7 SEC INR Comment 1.0 0.8-1.4 Activated Partial Thromboplast Time 29 24-35 SEC D-Dimer 0.34 0.00-0.49 UG/ML Sodium Level 138 135-145 MMOL/L Potassium Level 3.7 3.6-5.0 MMOL/L Chloride Level 105 98-107 MMOL/L Carbon Dioxide Level 24 21-32 MMOL/L Anion Gap 9 5-14 MMOL/L Blood Urea Nitrogen 10 7-18 MG/DL Creatinine 0.71 0.60-1.30 MG/DL Estimat Glomerular Filtration Rate > 60 BUN/Creatinine Ratio 14 Glucose Level 122 H 70-105 MG/DL Calcium Level 8.7 8.5-10.1 MG/DL Magnesium Level 1.8 1.8-2.4 MG/DL Total Bilirubin 0.3 0.1-1.0 MG/DL Aspartate Amino Transf (AST/SGOT) 12 5-34 U/L Alanine Aminotransferase (ALT/SGPT) 14 0-55 U/L Alkaline Phosphatase 95 40-136 U/L Myoglobin 15.7 10.0-92.0 NG/ML Troponin I < 0.30 <0.30 NG/ML Total Protein 6.8 6.4-8.2 GM/DL Albumin 3.9 3.2-4.5 GM/DL Lipase 18 8-78 U/L My Orders Orders - KARIEM Gardiner TOP COLLAR MAKER Cbc With Automated Diff (08/26/17 12:29) Magnesium (08/26/17 12:29) Chest 1 View, Ap/Pa Only (08/26/17 12:29) Ekg Tracing (08/26/17 12:29) Cardiac Profile 1 (08/26/17 12:29) Comprehensive Metabolic Panel (08/26/17 12:29) Myoglobin Serum (08/26/17 12:29) Protime With Inr (08/26/17 12:29) Partial Thromboplastin Time (08/26/17 12:29) O2 (08/26/17 12:29) Monitor-Rhythm Ecg Trace Only (08/26/17 12:29) Lipid Panel (08/27/17 06:00) Aspirin Chewable Tablet (Baby Aspirin Ch (08/26/17 12:30) Saline Lock/Iv-Start (08/26/17 12:29) Lipase (08/26/17 12:29) Fibrin Degradation Products (08/26/17 12:29) Iron Tibc %Sat & Ferritin (08/26/17 13:36) Vital Signs/I&O Vital Sign - Last 12Hours 08/26/17 12:34 Temp 97.0 Pulse 93 Resp 20 B/P (MAP) 176/99 (124) Pulse Ox 99 O2 Delivery Room Air Departure Communication (Admissions) Progress Notes 1328-I discussed with Bharati prater nurse at [facility]. They can see the patient in follow-up next Thursday at 2 p.m. That would be Thursday the . Patient does not list an iron supplement on her medications so I will prescribe her an iron supplement. She's had a steadily dropping hemoglobin several months. She did have a unremarkable EGD and colonoscopy in December of this year and neck injury patient states that she does not take an iron supplement currently. She does state that she has very heavy menstrual periods with large clots. She may need a referral to LEARNING AND DEVELOPMENT INTERN. Impression Impression: Primary Impression: Costochondritis, acute Additional Impressions: Anxiety Iron deficiency anemia Disposition: HOME, SELF-CARE Condition: Stable Departure-Patient Inst. Decision time for Depature: 12:37 Referrals: [facility] [place] (PCP/Family) Primary Care Physician Patient Instructions: Anemia Caused by Low Iron, Chest Pain That Is Not Caused by the Heart (DC) Add. Discharge Instructions: 1. Tylenol and Motrin for pain 2. Return here for any concerns. See doctor next week. I have made an appointment for U to be seen next Thursday the at 2 p.m. 3. Take the iron supplement as directed. All discharge instructions reviewed with patient and/or family. Voiced understanding. Scripts Iron,Carbonyl/Ascorbic Acid (Iron 100-Vitamin C Tablet) 1 Each Tablet 1 EACH PO BID, #20 TAB Prov: EM PIERCE APRN 08/26/17 Copy Copies To 1: SAGE PAREKH DO; GERONIMO SUAREZ DO; ETTA QUINN MD, PETER J APRN Aug 26, 2017 12:38
[2017-08-26 13:00] LABS: BASOPHILS # (AUTO) 0.1 10^3/uL (0.0-0.1); BASOPHILS % (AUTO) 1 % (0-10); EOSINOPHILS # (AUTO) 0.3 10^3/uL (0.0-0.3); EOSINOPHILS % (AUTO) 4 % (0-10); LYMPHOCYTES # (AUTO) 1.1 X 10^3 (1.0-4.0); LYMPHOCYTES % (AUTO) 16 % (12-44); MEAN CORPUSCULAR HEMOGLOBIN 19 PG (25-34); MEAN CORPUSCULAR HGB CONC 28 G/DL (32-36); MEAN CORPUSCULAR VOLUME 68 FL (80-99); MEAN PLATELET VOLUME 10.4 FL (7.4-10.4); MONOCYTES # (AUTO) 0.6 X 10^3 (0.0-1.0); MONOCYTES % (AUTO) 10 % (0-12); NEUTROPHILS # (AUTO) 4.7 X 10^3 (1.8-7.8); NEUTROPHILS % (AUTO) 69 % (42-75); PLATELET COUNT 418 10^3/uL (130-400); RED BLOOD COUNT 3.91 10^6/uL (4.35-5.85); WHITE BLOOD COUNT 6.7 10^3/uL (4.3-11.0)
[2017-08-26 13:17] LABS: PROTHROMBIN TIME PATIENT 13.5 SEC (12.2-14.7)
--- NOTE | 2017-08-26 13:17 | Diagnostic Imaging Report ---
INDICATION: Chest pain EXAMINATION: Frontal chest obtained at 12:45 hrs pm, and compared with 09/13/2016. Study limited by poor inspiration. The heart and mediastinal silhouette are normal. There is no definite infiltrate or pneumothorax or pleural fluid. IMPRESSION: Poor inspiration limits the study but there is no focal abnormality seen. Dictated by: Dictated on workstation # [id number]
[2017-08-26 13:26] LABS: ALANINE AMINOTRANSFERASE 14 U/L (0-55); ALBUMIN 3.9 GM/DL (3.2-4.5); ANION GAP 9 MMOL/L (5-14); ASPARTATE AMINO TRANSFERASE 12 U/L (5-34); BILIRUBIN,TOTAL 0.3 MG/DL (0.1-1.0); BLOOD UREA NITROGEN 10 MG/DL (7-18); BUN/CREATININE RATIO 14; CALCIUM 8.7 MG/DL (8.5-10.1); CARBON DIOXIDE 24 MMOL/L (21-32); CHLORIDE 105 MMOL/L (98-107); CREATININE SERUM 0.71 MG/DL (0.60-1.30); GFR ESTIMATED > 60; GLUCOSE 122 MG/DL (70-105); LIPASE 18 U/L (8-78); MAGNESIUM 1.8 MG/DL (1.8-2.4); POTASSIUM 3.7 MMOL/L (3.6-5.0); SODIUM 138 MMOL/L (135-145); TOTAL PROTEIN 6.8 GM/DL (6.4-8.2)
[2017-08-26] MEDS ORDERED: IRON1TAB89 PO (13:30)
[2017-08-26 13:32] LABS: MYOGLOBIN SERUM 15.7 NG/ML (10.0-92.0)
[2017-08-26 14:15] VITALS: BP 150/93
== END 2017-08-26 14:11 | disposition home or self-care (01) ==
LOC: EDUNIT# 12:24 → ER 12:27
DX: M94.0 Chondrocostal junction syndrome [Tietze] (principal); F41.9 Anxiety disorder, unspecified; D50.9 Iron deficiency anemia, unspecified; E78.00 Pure hypercholesterolemia, unspecified; I10 Essential (primary) hypertension; G43.909 Migraine, unspecified, not intractable, without status migrainosus; E03.9 Hypothyroidism, unspecified; Z87.891 Personal history of nicotine dependence; Z98.51 Tubal ligation status; Z90.89 Acquired absence of other organs; Z82.49 Family history of ischemic heart disease and other diseases of the circulatory system
CPT/HCPCS: 36415; 71010; 80053; 82728; 83540; 83690; 83735; 83874; 84484; 85025; 85379; 85610; 85730; 93005; 93041

== ENCOUNTER 2020-05-14 18:29 | Observation (INO) | payer OTHER ==
[~2020-05-14] VITALS: Ht 160 cm; Wt 126.2 kg
[~2020-05-14 18:29] MED LIST changes: -AMLO10TA2 PO; +AMLO10TA7 PO; +FERR-84 PO; +IRON1TAB89 PO; +LEVO25TA5 PO; +LISI1TAB46 PO; +NAPR-915 PO; -NAPR500T4 PO
--- NOTE | 2020-05-14 19:00 | NUR ---
Pt arrives by POV with c/o of pain to her right leg from mid-thigh to foot; states onset was 2 days ago and the pain is shooting in nature. Pt also reports that her foot feels numb. Pt has pain to her lower back with palpation. Pt c/o sob x 1 month. Pt states she hasn't taken her meds in over a month due to financial difficulties.
[2020-05-14] MEDS ORDERED: LACTATED RINGERS 1,000 ML IV ONE (19:16)
--- NOTE | 2020-05-14 19:26 | ED General ---
General Chief Complaint: Respiratory Problems Stated Complaint: SOA;LEG PAIN Nursing Triage Note: PT HERE WITH SOB X 1 MONTH AND RIGHT LEG PAIN X 2 DAYS; REPORTS THE LEG PAIN IS FROM MID THIGH DOWN AND DESCRIBES THE PAIN SHOOTING IN NATURE AND HAS SOME NUMBNESS TO HER RIGHT FOOT. PT REPORTS SHE HAS NOT BEEN TAKING HER MEDICATIONS BECAUSE SHE CAN'T AFFORD THEM. Nursing Sepsis Screen: No Definite Risk Source of Information: Patient, Old Records Exam Limitations: No Limitations History of Present Illness Date Seen by Provider: May 14, 2020 Time Seen by Provider: 19:04 Initial Comments This 40-year-old woman presents to the emergency room with complaints of shortness of breath 1 month, pain extending from her right up through her posterior right thigh 2 days, nausea, and back spasms. She has a history of severe anemia without unknown cause. She does have heavy menstrual cramping and passage of clots typically. Her LMP was April 21 and was very light. She denies any other source of bleeding. She had a colonoscopy and EGD in 2017 with polypectomy. She denies any exposures to ill persons or persons with COVID-19 or under investigation for COVID-19. She does not smoke and denies recent travel. She is afebrile. Although short of breath, she denies any chest pain. She is noted to be tachycardic with heart rate in the 110s on arrival. Patient reports she has been out of her medications for about one year citing financial reasons. Allergies and Home Medications Allergies Coded Allergies: No Known Drug Allergies (Unverified , 12/29/16) Home Medications Amlodipine Besylate 10 Mg Tablet, 10 MG PO DAILY, (Reported) Ferrous Sulfate 325 Mg Tablet, 325 MG PO TID Prescribed by: RODO VILCHIS on 05/05/18 1330 Levothyroxine Sodium 25 Mcg Tablet, 25 MCG PO DAILY Prescribed by: RODO VILCHIS on 05/05/18 1330 Lisinopril/Hydrochlorothiazide 1 Each Tablet, 1 EACH PO DAILY Prescribed by: RODO VILCHIS on 05/05/18 1330 Patient Home Medication List Home Medication List Reviewed: Yes Review of Systems Review of Systems Constitutional: no symptoms reported EENTM: no symptoms reported, other (no sore throat or change in taste or smell) Respiratory: see HPI Cardiovascular: see HPI Gastrointestinal: see HPI Genitourinary: no symptoms reported : No LMP: Apr 21, 2020 Musculoskeletal: see HPI Skin: no symptoms reported Psychiatric/Neurological: No Symptoms Reported Hematologic/Lymphatic: See HPI Immunological/Allergic: no symptoms reported Past Jakhomy-Jjilwi-Qqdzrp Hx Past Med/Social Hx: Reviewed Nursing Past Med/Soc Hx Patient Social History Alcohol Use: Denies Use Recreational Drug Use: No Smoking Status: Former Smoker Type Used: Cigarettes Former Smoker, Quit: Jun 07, 2002 2nd Hand Smoke Exposure: Yes Recent Foreign Travel: No Contact w/Someone Who Travel: No Recent Infectious Disease Expo: No Recent Hopitalizations: No Immunizations Up To Date Tetanus Booster (TDap): Unknown Date of Pneumonia Vaccine: Apr 06, 2012 Seasonal Allergies Seasonal Allergies: Yes (MILD) Past Medical History Surgeries: Yes (colonoscopy and EGD with sigmoid polypectomy) Abdominal, Tonsillectomy, Tubal Ligation Respiratory: No Cardiac: Yes High Cholesterol, Hypertension Neurological: Yes Headaches /Migraines Reproductive Disorders: No PREPRESS SPECIALIST History: Tubal Ligation Sexually Transmitted Disease: No HIV/AIDS: No Genitourinary: No Gastrointestinal: Yes Polyps Musculoskeletal: Yes Arthritis Endocrine: Yes Hypothyroidsim HEENT: No Loss of Vision: Denies Hearing Impairment: Denies Cancer: No Psychosocial: Yes Anxiety Integumentary: No Blood Disorders: Yes (IRON DEFF ANEMIA) Adverse Reaction/Blood Tranf: No (HAS HAD BLOOD WITH NO PROBLEMS) Family Medical History Reviewed Nursing Family Hx Cardiovascular disease 19 FATHER 19 MOTHER Congenital heart disease 19 MOTHER Hypertension 19 MOTHER Myocardial infarction 19 MOTHER No Pertinent Family Hx Physical Exam-Suspected Sepsis Physical Exam Vital Signs Vital Signs - First Documented 05/14/20 19:00 Temp 37.2 Pulse 116 Resp 22 B/P (MAP) 186/82 (116) Pulse Ox 99 O2 Delivery Room Air Capillary Refill : Less Than 3 Seconds Blood Pressure Mean: 116 Height, Weight, BMI Height: 5'2.00" Weight: 272lbs. 0.0oz. 123.968279jk; 49.00 BMI Method:Stated General Appearance: WD/WN, Mild Distress, Obese HEENT: PERRL/EOMI, Normal ENT Inspection Neck: Normal Inspection Respiratory: Lungs Clear, Normal Breath Sounds, No Accessory Muscle Use, No Respiratory Distress Cardiovascular: No Edema, No Murmur, Tachycardia Gastrointestinal: Normal Bowel Sounds, Non Tender, Soft Rectal: Normal Exam, Normal Rectal Tone, Heme Negative Stool Extremity: Normal Inspection, No Pedal Edema, Calf Tenderness (right calf tenderness and right posterior thigh tenderness), Other (normal right pedal pulse) Neurologic/Psychiatric: Alert, Oriented x3, No Motor/Sensory Deficits, Normal Mood/Affect, earth moving technician II-XII Norm as Tested Skin: normal color, warm/dry Focused Exam Lactate Level 05/14/20 19:32: Lactic Acid Level 1.55 Lactic Acid Level Laboratory Tests Test 05/14/20 19:32 Lactic Acid Level 1.55 MMOL/L (0.50-2.00) Progress/Results/Core Measures Suspected Sepsis Recent Fever Within 48 Hours: No Infection Criteria Present: None New/Unexplained Altered Menta: No Sepsis Screen: No Definite Risk SIRS Temperature: Pulse: 116 Respiratory Rate: 22 Laboratory Tests 05/14/20 19:32: White Blood Count 9.7 Blood Pressure 186 /82 Mean: 116 05/14/20 19:32: Lactic Acid Level 1.55 Laboratory Tests 05/14/20 19:32: Creatinine 0.90, INR Comment 1.1, Platelet Count 406H, Total Bilirubin 0.4 Results/Orders Lab Results Laboratory Tests Test 05/14/20 19:32 05/14/20 21:30 Range/Units White Blood Count 9.7 4.3-11.0 10^3/uL Red Blood Count 2.83 L 4.35-5.85 10^6/uL Hemoglobin 4.6 *L 11.5-16.0 G/DL Hematocrit 18 *L 35-52 % Mean Corpuscular Volume 67 L 80-99 FL Mean Corpuscular Hemoglobin 17 L 25-34 PG Mean Corpuscular Hemoglobin Concent 25 L 32-36 G/DL Red Cell Distribution Width 22.4 H 10.0-14.5 % Platelet Count 406 H 130-400 10^3/uL Mean Platelet Volume 10.7 H 7.4-10.4 FL Neutrophils (%) (Auto) 74 42-75 % Lymphocytes (%) (Auto) 13 12-44 % Monocytes (%) (Auto) 10 0-12 % Eosinophils (%) (Auto) 2 0-10 % Basophils (%) (Auto) 1 0-10 % Neutrophils # (Auto) 7.2 1.8-7.8 X 10^3 Lymphocytes # (Auto) 1.3 1.0-4.0 X 10^3 Monocytes # (Auto) 1.0 0.0-1.0 X 10^3 Eosinophils # (Auto) 0.2 0.0-0.3 10^3/uL Basophils # (Auto) 0.1 0.0-0.1 10^3/uL Absolute Reticulocyte Count 59 24-90 10e9/L Percent Reticulocyte Count 2.10 0.50-2.40 % Prothrombin Time 14.1 12.2-14.7 SEC INR Comment 1.1 0.8-1.4 Activated Partial Thromboplast Time 29 24-35 SEC D-Dimer 0.52 H 0.00-0.49 UG/ML Sodium Level 137 135-145 MMOL/L Potassium Level 3.6 3.6-5.0 MMOL/L Chloride Level 105 98-107 MMOL/L Carbon Dioxide Level 23 21-32 MMOL/L Anion Gap 9 5-14 MMOL/L Blood Urea Nitrogen 11 7-18 MG/DL Creatinine 0.90 0.60-1.30 MG/DL Estimat Glomerular Filtration Rate > 60 BUN/Creatinine Ratio 12 Glucose Level 122 H 70-105 MG/DL Lactic Acid Level 1.55 0.50-2.00 MMOL/L Calcium Level 9.0 8.5-10.1 MG/DL Corrected Calcium 8.7 8.5-10.1 MG/DL Magnesium Level 2.1 1.6-2.4 MG/DL Total Bilirubin 0.4 0.1-1.0 MG/DL Aspartate Amino Transf (AST/SGOT) 17 5-34 U/L Alanine Aminotransferase (ALT/SGPT) 9 0-55 U/L Alkaline Phosphatase 72 40-136 U/L Troponin I < 0.028 <0.028 NG/ML C-Reactive Protein High Sensitivity 1.12 H 0.00-0.50 MG/DL B-Type Natriuretic Peptide 55.5 <100.0 PG/ML Total Protein 7.2 6.4-8.2 GM/DL Albumin 4.4 3.2-4.5 GM/DL Procalcitonin 0.04 <0.10 NG/ML Thyroid Stimulating Hormone (TSH) 12.31 H 0.35-4.94 UIU/ML Free Thyroxine 0.60 L 0.70-1.48 NG/DL Serum Test, Qualitative NEGATIVE NEGATIVE My Orders Orders - BRUEGGEMANN,RODO T MD Cbc With Automated Diff (05/14/20 19:12) Comprehensive Metabolic Panel (05/14/20 19:12) Fibrin Degradation Products (05/14/20 19:12) Procalcitonin (Pct) (05/14/20 19:12) Hs C Reactive Protein (05/14/20 19:12) Ekg Tracing (05/14/20 19:12) Chest 1 View, Ap/Pa Only (05/14/20 19:12) Hcg,Qualitative Serum (05/14/20 19:12) BNP (05/14/20 19:12) Lactic Acid Analyzer (05/14/20 19:12) Magnesium (05/14/20 19:12) Troponin I (05/14/20 19:12) Ua Culture If Indicated (05/14/20 19:12) Monitor-Rhythm Ecg Trace Only (05/14/20 19:12) Ed Iv/Invasive Line Start (05/14/20 19:16) Lactated Ringers (Lr 1000 Ml Iv Solution (05/14/20 19:16) Ondansetron Injection (Zofran Injectio (05/14/20 19:30) Protime With Inr (05/14/20 19:26) Partial Thromboplastin Time (05/14/20 19:26) Vital Signs Adult Sepsis Patie Q15M (05/14/20 19:26) Remove Rings In Anticipation O (05/14/20 19:26) Thyroid Stimulating Hormone (05/14/20 19:27) Free T4 (Free Thyroxine) (05/14/20 19:27) Fentanyl Injection (Sublimaze Injection (05/14/20 19:45) Red Cells Leukocytes Reduced (05/14/20 19:43) Type And Screen (05/14/20 19:43) Red Cells Leukocytes Reduced (05/14/20 20:36) Iron Tibc %Sat & Ferritin (05/14/20 20:37) Reticulocyte Count (05/14/20 20:37) Ns Iv 1000 Ml (Sodium Chloride 0.9%) (05/14/20 20:39) Medications Given in ED Current Medications Medications Dose Ordered Sig/Shilpa Route Start Time Stop Time Status Last Admin Dose Admin Fentanyl Citrate 50 mcg ONCE ONCE IVP 05/14/20 19:45 9/7/20 19:46 DC 05/14/20 20:00 50 MCG Lactated Ringer's 1,000 ml @ 0 mls/hr Q0M ONCE IV 05/14/20 19:16 05/14/20 19:17 DC 05/14/20 19:33 1,000 MLS/HR Ondansetron HCl 4 mg ONCE ONCE IVP 05/14/20 19:30 05/14/20 19:31 DC 05/14/20 19:33 4 MG Vital Signs/I&O 05/14/20 05/14/20 05/14/20 05/14/20 19:00 21:05 21:14 21:36 Temp 37.2 36.9 37.1 37.1 Pulse 116 95 90 90 Resp 22 20 20 20 B/P (MAP) 186/82 (116) 149/82 155/87 160/79 Pulse Ox 99 98 98 98 O2 Delivery Room Air Room Air Room Air Room Air Capillary Refill : Less Than 3 Seconds Blood Pressure Mean: 116 Progress Note #1: Time: 19:57 Progress Note Hemoglobin returned 4.6. This could certainly explain her shortness of breath and tachycardia. Hemoccult test is negative by digital rectal evaluation. 2 units of PRBC are being crossmatched for transfusion. Progress Note #2: Time: 20:34 Progress Note Patient was initially under PUI precautions due to her shortness of breath. However, labs and vitals are not consistent with COVID-19 and severe anemia is likely the cause of her shortness of breath. We are taking her off of PUI precautions. 2 units PRBC were ordered for transfusion in the ER. Dr. Conrad requested a total of [address] Conrad and patient are agreeable to admission for observation. Hemoglobin will be checked again in the morning. D-dimer is minimally elevated making DVT unlikely. A venous Doppler will be obtained in the morning. Iron studies were added to the workup. Dr. Wren was notified of consult. He reports Dr. Castillo will be rounding in the morning. ECG Initial ECG Impression Date: May 14, 2020 Initial ECG Impression Time: 19:11 Initial ECG Rate: 96 Initial ECG Rhythm: Normal Sinus Initial ECG Intervals: Normal Comment Sinus rhythm with borderline tachycardia. Subtle ST changes that are nondiagnostic. No ischemic ST elevation or depression. No abnormal intervals or axis deviation. Diagnostic Imaging Diagonstic Imaging: Xray Plain Films/CT/US/NM/MRI: chest Comments Chest x-ray viewed by me and report reviewed. See report below: NAME: SOPHIA VEGA [facility] REC#: [id number] PT STATUS: REG ER : 1980 PHYSICIAN: RODO IRIZARRY MD ADMIT DATE: 05/14/20/ER Draft Date of Exam:05/14/20 CHEST 1 VIEW, AP/PA ONLY EXAM: CHEST 1 VIEW, AP/PA ONLY INDICATION: Dyspnea. COMPARISON: Chest radiograph 05/05/2018. FINDINGS: Cardiomegaly with increasing prominence of the central pulmonary vascularity. No focal pulmonary opacity. No pleural effusion or pneumothorax. No acute osseous findings. IMPRESSION: Cardiomegaly with increasing pulmonary vascular congestion. Dictated on workstation # [id number] Dict: 05/14/202011 Trans: 05/14/20 2017 CV [id number] Interpreted by: MYLENE CHURCHILL MD Departure Communication (Admissions) Time/Spoke to Admitting Phy: 20:25 Dr. Conrad Time/Spoke to Consulting Phy: 20:30 Dr. Wren Impression Primary Impression: Severe anemia Additional Impressions: Dyspnea Qualified Codes: R06.02 - Shortness of breath Right leg pain Disposition: ADMITTED INPATIENT Condition: Improved Admissions Decision to Admit Reason: Admit from ER (General) Decision to Admit/Date: May 14, 2020 Time/Decision to Admit Time: 20:25 Departure-Patient Inst. Referrals: [facility] [place] Primary Care Physician RODO IRIZARRY MD May 14, 2020 19:26
[2020-05-14] MEDS ORDERED: ONDANSETRON 4 MG/2 ML (SDV) Z0FRAN IVP ONE (19:30)
[2020-05-14 19:41] LABS: BASOPHILS # (AUTO) 0.1 10^3/uL (0.0-0.1); BASOPHILS % (AUTO) 1 % (0-10); EOSINOPHILS # (AUTO) 0.2 10^3/uL (0.0-0.3); EOSINOPHILS % (AUTO) 2 % (0-10); LYMPHOCYTES # (AUTO) 1.3 X 10^3 (1.0-4.0); LYMPHOCYTES % (AUTO) 13 % (12-44); MEAN CORPUSCULAR HEMOGLOBIN 17 PG (25-34); MEAN CORPUSCULAR HGB CONC 25 G/DL (32-36); MEAN CORPUSCULAR VOLUME 67 FL (80-99); MEAN PLATELET VOLUME 10.7 FL (7.4-10.4); MONOCYTES % (AUTO) 10 % (0-12); NEUTROPHILS # (AUTO) 7.2 X 10^3 (1.8-7.8); NEUTROPHILS % (AUTO) 74 % (42-75); PLATELET COUNT 406 10^3/uL (130-400); WHITE BLOOD COUNT 9.7 10^3/uL (4.3-11.0)
[2020-05-14 19:42] LABS: HEMATOCRIT 18 % (35-52); HEMOGLOBIN 4.6 G/DL (11.5-16.0)
[2020-05-14] MEDS ORDERED: fentaNYL INJECTION 100 MCG/2 ML AMP IVP ONE (19:45)
[2020-05-14 19:54] LABS: FIBRIN DEGRADATION PRODUCTS 0.52 UG/ML (0.00-0.49); INR 1.1 (0.8-1.4); PROTHROMBIN TIME PATIENT 14.1 SEC (12.2-14.7)
[2020-05-14 20:00] LABS: ALANINE AMINOTRANSFERASE 9 U/L (0-55); ALBUMIN 4.4 GM/DL (3.2-4.5); ALKALINE PHOSPHATASE 72 U/L (40-136); BILIRUBIN,TOTAL 0.4 MG/DL (0.1-1.0); BUN/CREATININE RATIO 12; CARBON DIOXIDE 23 MMOL/L (21-32); CHLORIDE 105 MMOL/L (98-107); GFR ESTIMATED > 60; GLUCOSE 122 MG/DL (70-105); MAGNESIUM 2.1 MG/DL (1.6-2.4); POTASSIUM 3.6 MMOL/L (3.6-5.0); SODIUM 137 MMOL/L (135-145); TOTAL PROTEIN 7.2 GM/DL (6.4-8.2)
--- NOTE | 2020-05-14 20:17 | Diagnostic Imaging Report ---
EXAM: CHEST 1 VIEW, AP/PA ONLY INDICATION: Dyspnea. COMPARISON: Chest radiograph 05/05/2018. FINDINGS: Cardiomegaly with increasing prominence of the central pulmonary vascularity. No focal pulmonary opacity. No pleural effusion or pneumothorax. No acute osseous findings. IMPRESSION: Cardiomegaly with increasing pulmonary vascular congestion. Dictated by: Dictated on workstation # [id number]
[2020-05-14] MEDS ORDERED: NS IV 1000 ML 1,000 ML ONE (20:39)
[2020-05-14 20:45] LABS: RETICULOCYTE % 2.1 % (0.50-2.40)
[2020-05-14 21:05] VITALS: BP 149/82
--- NOTE | 2020-05-14 21:09 | NUR ---
Pt resting; consent signed and witness. 1 unit of blood at bedside and started without incident.
[2020-05-14 21:14] VITALS: BP 155/87
[2020-05-14 21:38] LABS: BILIRUBIN,URINE NEGATIVE (NEGATIVE); CLARITY,URINE CLEAR; COLOR,URINE YELLOW; GLUCOSE, URINE (UA) NEGATIVE (NEGATIVE); KETONES,URINE NEGATIVE (NEGATIVE); LEUKOCYTE ESTERASE ,URINE NEGATIVE (NEGATIVE); NITRITE,URINE NEGATIVE (NEGATIVE); PROTEIN,URINE NEGATIVE (NEGATIVE)
--- NOTE | 2020-05-14 21:39 | NUR ---
Blood infusing to ICU; pt showing no untoward affects of transfusion and resting with no new complaints.
--- NOTE | 2020-05-14 21:45 | NUR ---
SOPHIA VEGA admitted to room CU4-1, with an admitting diagnosis of ANEMIA, on 05/14/20 from [place] via , accompanied by .SOPHIA VEGA introduced to surroundings, call light, bed controls, phone, TV, temperature control, lights, meal times, smoking policy, visitor policy, side rail policy, bathrooms and showers. Patient Rights given to patient in the handbook. SOPHIA VEGA verbalizes understanding that [facility] is not responsible for the loss or damage to any personal effects or valuables that are kept in the patients posession during their hospitalization. The following Patient Care Plans were discussed with the : Discharge Planning, ,, and . SOPHIA VEGA verbalizes understanding of Interdisciplinary Patient Education. Patient and/or family were informed about the Rapid Response Team and its purpose.
[2020-05-14 21:55] LABS: BACTERIA,URINE TRACE /HPF; WBC,URINE 0-2 /HPF
[2020-05-14 22:00] VITALS: BP 195/105
[2020-05-14] MEDS ORDERED: LEVOTHYROXINE 50 MCG (LEVOTHROID) TAB ONE (22:00)
[2020-05-14] MEDS ORDERED: amLODIPine 5 MG (NORVASC) TAB PO ONE (22:15)
[2020-05-14] MEDS ORDERED: amLODIPine 5 MG (NORVASC) TAB ONE (22:16)
[2020-05-14] MEDS ORDERED: cloNIDine 0.1 MG (CATAPRES) TAB ONE (22:17)
[2020-05-14] MEDS: cloNIDine 0.1 MG (CATAPRES) TAB PO PRN (22:22)
[2020-05-14] MEDS ORDERED: ONDANSETRON 4 MG/2 ML (SDV) Z0FRAN IVP PRN (22:30)
[2020-05-14] MEDS ORDERED: ACETAMINOPHEN 500 MG TAB (TYLENOL) PO PRN (22:30)
[2020-05-14] MEDS: LEVOTHYROXINE 50 MCG (LEVOTHROID) TAB PO SCH (22:32)
[2020-05-14 23:18] VITALS: BP 195/105
[2020-05-15] VITALS (14 sets, daily range): BP systolic 140–173; BP diastolic 79–109
--- NOTE | 2020-05-15 00:41 | NUR ---
UNABLE TO END FIRST UNIT OF BLOOD BECAUSE IT WASN'T VERIFIED IN ED BEFORE IT WAS STARTED
[2020-05-15] MEDS: LEVOTHYROXINE 50 MCG (LEVOTHROID) TAB PO SCH (06:03)
[2020-05-15] MEDS: fentaNYL INJECTION 100 MCG/2 ML AMP IVP PRN ×2 (06:33→19:44)
[2020-05-15 06:41] LABS: BASOPHILS # (AUTO) 0.1 10^3/uL (0.0-0.1); BASOPHILS % (AUTO) 1 % (0-10); EOSINOPHILS # (AUTO) 0.2 10^3/uL (0.0-0.3); EOSINOPHILS % (AUTO) 2 % (0-10); HEMATOCRIT 24 % (35-52); LYMPHOCYTES # (AUTO) 1.3 X 10^3 (1.0-4.0); LYMPHOCYTES % (AUTO) 14 % (12-44); MEAN CORPUSCULAR HEMOGLOBIN 21 PG (25-34); MEAN CORPUSCULAR HGB CONC 29 G/DL (32-36); MEAN CORPUSCULAR VOLUME 72 FL (80-99); MONOCYTES # (AUTO) 0.9 X 10^3 (0.0-1.0); MONOCYTES % (AUTO) 10 % (0-12); NEUTROPHILS # (AUTO) 6.8 X 10^3 (1.8-7.8); NEUTROPHILS % (AUTO) 74 % (42-75); PLATELET COUNT 362 10^3/uL (130-400); WHITE BLOOD COUNT 9.2 10^3/uL (4.3-11.0)
[2020-05-15 06:48] LABS: HEMOGLOBIN 6.8 G/DL (11.5-16.0)
[2020-05-15 06:51] LABS: CHLORIDE 106 MMOL/L (98-107); POTASSIUM 3.8 MMOL/L (3.6-5.0); SODIUM 137 MMOL/L (135-145)
[2020-05-15 06:52] LABS: CALCIUM 8.4 MG/DL (8.5-10.1)
[2020-05-15 06:53] LABS: GLUCOSE 96 MG/DL (70-105)
[2020-05-15 06:54] LABS: CARBON DIOXIDE 22 MMOL/L (21-32)
[2020-05-15 06:57] LABS: BUN/CREATININE RATIO 12; CREATININE SERUM 0.82 MG/DL (0.60-1.30); GFR ESTIMATED > 60
[2020-05-15] MEDS: amLODIPine 5 MG (NORVASC) TAB PO SCH (07:47)
[2020-05-15] MEDS: cloNIDine 0.1 MG (CATAPRES) TAB PO PRN ×2 (07:47→23:29)
--- NOTE | 2020-05-15 08:29 | Diagnostic Imaging Report ---
INDICATION: Right leg pain COMPARISON: None TECHNIQUE: Duplex, ponce-scale and color-flow imaging of the right lower extremity venous system was performed. FINDINGS: The common femoral vein, superficial femoral vein, profunda femoris, and popliteal veins are normal. These vessels show normal compressibility, color flow, and doppler augmentation. The deep calf veins, although not very well seen, demonstrate no distinct intraluminal thrombus. IMPRESSION: Negative venous Doppler of the right lower extremity. Dictated by: Dictated on workstation # [id number]
--- NOTE | 2020-05-15 09:24 | Consultation - Surgery ---
PILAR SKAGGS MED STUDENT 05/15/20 0924: History of Present Illness History of Present Illness Patient Consulted On(lala/time) 05/15/20 09:19 Date Seen by Provider: May 15, 2020 History of Present Illness surgery consult re: anemia pt was awake and laying in bed. pt presents with a chief complaint of shortness of breath and R leg pain. pt stated that the shortness of breath got worse a few days ago. pt stated that the pain in her R leg is at 4/10. the pain radiates from the upper thigh down to mid-calf. pt described the pain as restless. When asked about the anemia, pt has been told she was anemic before. pt was told she had iron deficiency 2 years ago, was treated with blood transfusion and nothing else. pt stated that she does bruise easily. pt stated that this is the third set of transfusions she has had. Allergies and Home Medications Allergies Coded Allergies: No Known Drug Allergies (Unverified , 12/29/16) Home Medications Amlodipine Besylate 10 Mg Tablet, 10 MG PO DAILY, (Reported) Ferrous Sulfate 325 Mg Tablet, 325 MG PO TID Prescribed by: RODO VILCHIS on 05/05/18 1330 Levothyroxine Sodium 25 Mcg Tablet, 25 MCG PO DAILY Prescribed by: RODO VILCHIS on 05/05/18 1330 Lisinopril/Hydrochlorothiazide 1 Each Tablet, 1 EACH PO DAILY Prescribed by: RODO VILCHIS on 05/05/18 1330 Past Fdxrcma-Zysxru-Borkop Hx Patient Social History Alcohol Use: Denies Use Recreational Drug Use: No Smoking Status: Former Smoker Former Smoker, Quit: Jun 07, 2002 Type Used: Cigarettes Immunizations Up To Date Tetanus Booster (TDap): Unknown Date of Pneumonia Vaccine: Apr 06, 2012 Seasonal Allergies Seasonal Allergies: Yes (MILD) Surgeries History of Surgeries: Yes (colonoscopy and EGD with sigmoid polypectomy) Surgeries: Tonsillectomy, Tubal Ligation Respiratory History of Respiratory Disorde: No Cardiovascular History of Cardiac Disorders: Yes Cardiac Disorders: Hypertension Reproductive System Hx Reproductive Disorders: No 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: Tubal Ligation Genitourinary History of Genitourinary Disor: No Endocrine History of Endocrine Disorders: Yes Endocrine Disorders: Hypothyroidsim Cancer History of Cancer: No Blood Transfusions History of Blood Disorders: Yes (iron deficiency anemia ) Adverse Reaction to a Blood Tr: No (HAS HAD BLOOD WITH NO PROBLEMS) Family Medical History Significant Family History: Heart Disease, Diabetes, Hypertension, Other Conditions/Hx (lupus ) Family Medial History: Cardiovascular disease 19 FATHER 19 MOTHER Congenital heart disease 19 MOTHER Hypertension 19 MOTHER Myocardial infarction 19 MOTHER Review of Systems-General Constitutional: No chills, No diaphoresis, No fever; malaise Respiratory: cough, short of breath Cardiovascular: No chest pain, No palpitations Gastrointestinal: No abdominal pain, No constipation, No diarrhea, No melena, No nausea, No vomiting Genitourinary: No frequency, No pain Physical Exam-General Problems Physical Exam Vital Signs Vital Signs - First Documented 05/14/20 19:00 Temp 37.2 Pulse 116 Resp 22 B/P (MAP) 186/82 (116) Pulse Ox 99 O2 Delivery Room Air Capillary Refill : Less Than 3 Seconds General Appearance: no apparent distress, obese HEENT: No scleral icterus (R), No scleral icterus (L) Neck: non-tender; No lymphadenopathy (R), No lymphadenopathy (L) Respiratory: chest non-tender, lungs clear, normal breath sounds, no respiratory distress, no accessory muscle use Cardiovascular: regular rate, rhythm, no murmur Peripheral Pulses: 2+ Carotid (R), 2+ Carotid (L), 2+ Dorsalis Pedis (R), 2+ Left Dors-Pedis (L), 2+ Radial Pulses (R), 2+ Radial Pulses (L) Gastrointestinal: non tender; No distended Neurologic/Psychiatric: flexographic press plate setter II-XII nml as tested, no motor/sensory deficits, alert, normal mood/affect, oriented x 3 Skin: normal color Lymphatic: no adenopathy Data Review Labs Laboratory Tests 05/14/20 19:32: White Blood Count 9.7, Red Blood Count 2.83L, Hemoglobin 4.6*L, Hematocrit 18*L, Mean Corpuscular Volume 67L, Mean Corpuscular Hemoglobin 17L, Mean Corpuscular Hemoglobin Concent 25L, Red Cell Distribution Width 22.4H, Platelet Count 406H, Mean Platelet Volume 10.7H, Neutrophils (%) (Auto) 74, Lymphocytes (%) (Auto) 13, Monocytes (%) (Auto) 10, Eosinophils (%) (Auto) 2, Basophils (%) (Auto) 1, Neutrophils # (Auto) 7.2, Lymphocytes # (Auto) 1.3, Monocytes # (Auto) 1.0, Eosinophils # (Auto) 0.2, Basophils # (Auto) 0.1, Absolute Reticulocyte Count 59, Percent Reticulocyte Count 2.10, Prothrombin Time 14.1, INR Comment 1.1, Activated Partial Thromboplast Time 29, D-Dimer 0.52H, Sodium Level 137, Potassium Level 3.6, Chloride Level 105, Carbon Dioxide Level 23, Anion Gap 9, Blood Urea Nitrogen 11, Creatinine 0.90, Estimat Glomerular Filtration Rate > 6 0, BUN/Creatinine Ratio 12, Glucose Level 122H, Lactic Acid Level 1.55, Calcium Level 9.0, Corrected Calcium 8.7, Magnesium Level 2.1, Total Bilirubin 0.4, Aspartate Amino Transf (AST/SGOT) 17, Alanine Aminotransferase (ALT/SGPT) 9, Al kaline Phosphatase 72, Troponin I < 0.028, C-Reactive Protein High Sensitivity 1.12H, B-Type Natriuretic Peptide 55.5, Total Protein 7.2, Albumin 4.4, Procalcitonin 0.04, Thyroid Stimulating Hormone (TSH) 12.31H, Free Thyroxine 0.60L, Serum Test, Qualitative NEGATIVE 05/14/20 21:30: Urine Color YELLOW, Urine Clarity CLEAR, Urine pH 6.0, Urine Specific Windfall 1.020, Urine Protein NEGATIVE, Urine Glucose (UA) NEGATIVE, Urine Ketones NEGATIVE, Urine Nitrite NEGATIVE, Urine Bilirubin NEGATIVE, Urine Urobilinogen 0.2, Urine Leukocyte Esterase NEGATIVE, Urine RBC (Auto) NEGATIVE, Urine RBC NONE, Urine WBC 0-2, Urine Squamous Epithelial Cells 5-10, Urine Crystals NONE, Urine Bacteria TRACE, Urine Casts NONE, Urine Mucus NEGATIVE, Urine Culture Indicated NO 05/15/20 06:15: White Blood Count 9.2, Red Blood Count 3.28L, Hemoglobin 6.8#*L, Hematocrit 24L, Mean Corpuscular Volume 72L, Mean Corpuscular Hemoglobin 21L, Mean Corpuscular Hemoglobin Concent 29L, Red Cell Distribution Width 25.3H, Platelet Count 362, Mean Platelet Volume 11.0H, Neutrophils (%) (Auto) 74, Lymphocytes (%) (Auto) 14, Monocytes (%) (Auto) 10, Eosinophils (%) (Auto) 2, Basophils (%) (Auto) 1, Neutrophils # (Auto) 6.8, Lymphocytes # (Auto) 1.3, Monocytes # (Auto) 0.9, Eosinophils # (Auto) 0.2, Basophils # (Auto) 0.1, Sodium Level 137, Potassium Level 3.8, Chloride Level 106, Carbon Dioxide Level 22, Anion Gap 9, Blood Urea Nitrogen 10, Creatinine 0.82, Estimat Glomerular Filtration Rate > 60, BUN/Creatinine Ratio 12, Glucose Level 96, Calcium Level 8.4L Clinical Quality Measures DVT/VTE Risk/Contraindication: Risk Factor Score Per Nursin RFS Level Per Nursing on Admit: 1=Low/No VTE PPX MYLA MANZANO DO 05/15/20 1251: History of Present Illness History of Present Illness Time Seen by Provider: 11:32 History of Present Illness Pt seen and examined, states she feels weak and is SOB; but feeling better than prior to transfusion. She denies any hematochezia or melena and had a Colonoscopy a few years ago by Dr. Wren that showed some polyps. She states that she goes through a box of 40 tampons when when is on her period and usually sees clots the size of a quarter. She has not seen a 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 for this bleeding. Allergies and Home Medications Allergies Coded Allergies: No Known Drug Allergies (Unverified , 12/29/16) Home Medications Amlodipine Besylate 10 Mg Tablet, 10 MG PO DAILY, (Reported) Ferrous Sulfate 325 Mg Tablet, 325 MG PO TID Prescribed by: RODO VILCHIS on 05/05/18 1330 Levothyroxine Sodium 25 Mcg Tablet, 25 MCG PO DAILY Prescribed by: RODO VILCHIS on 05/05/18 1330 Lisinopril/Hydrochlorothiazide 1 Each Tablet, 1 EACH PO DAILY Prescribed by: RODO VILCHIS on 05/05/18 1330 Patient Home Medication List Home Medication List Reviewed: Yes Past Mxwnvzo-Rliijq-Zkkgcd Hx Family Medical History Significant Family History: Heart Disease, Diabetes, Hypertension Family Medial History: Cardiovascular disease 19 FATHER 19 MOTHER Congenital heart disease 19 MOTHER Hypertension 19 MOTHER Myocardial infarction 19 MOTHER Review of Systems-General Constitutional: No chills, No diaphoresis, No fever; malaise, weakness Respiratory: cough, dyspnea on exertion, short of breath Cardiovascular: No chest pain, No palpitations Gastrointestinal: No abdominal pain, No constipation, No diarrhea, No melena, No nausea, No vomiting Genitourinary: No dysuria, No frequency, No hematuria Physical Exam-General Problems Physical Exam General Appearance: no apparent distress, obese Eyes: Bilateral Eye PERRL, Bilateral Eye EOMI HEENT: No scleral icterus (R), No scleral icterus (L) Neck: non-tender; No lymphadenopathy (R), No lymphadenopathy (L) Respiratory: lungs clear, normal breath sounds, no respiratory distress, no accessory muscle use Cardiovascular: regular rate, rhythm, no murmur Gastrointestinal: non tender, soft, no organomegaly Back: no CVA tenderness, no vertebral tenderness Extremities: no pedal edema, normal capillary refill, calf tenderness (right) Neurologic/Psychiatric: flexographic press plate setter II-XII nml as tested, alert, normal mood/affect, oriented x 3 Skin: normal color, warm/dry Lymphatic: no adenopathy (neck, axilla or groin) Data Review Radiology Date of Exam:05/15/20 US VENOUS LOWER EXT RT INDICATION: Right leg pain COMPARISON: None TECHNIQUE: Duplex, ponce-scale and color-flow imaging of the right lower extremity venous system was performed. FINDINGS: The common femoral vein, superficial femoral vein, profunda femoris, and popliteal veins are normal. These vessels show normal compressibility, color flow, and doppler augmentation. The deep calf veins, although not very well seen, demonstrate no distinct intraluminal thrombus. IMPRESSION: Negative venous Doppler of the right lower extremity. Dictated on workstation # [id number] Dict: 05/15/20 0824 Trans: 05/15/20 0829 [facility] [id number] Interpreted by: FARZANA DILLARD MD Electronically signed by: Assessment/Plan Assessment/Plan Assessment/Plan Profound Anemia Morbid Obesity Raquel-Metrorrbradford Pt is receiving blood transfusions and on a diet. She need a colonoscopy as an outpt; but, I think her anemia is due to vaginal bleeding and would best benefit from a 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 consult. Supervisory-Addendum Brief Verification & Attestation Participated in pt care: history, MDM, physical Personally performed: exam, history, MDM Care discussed with: Medical Student Procedures: n/a Verification and Attestation of Medical Student E/M Service A medical student performed and documented this service. I then reviewed and verified all information documented by the medical student and made modifications to such information, when appropriate. I personally performed a physical exam, medical decision making and then discussed any differences between the notes and made revisions as necessary to create one note. Myla Manzano , 05/15/20 , 12:55 PILAR SKAGGS STUDENT May 15, 2020 09:24 MYLA MANZANO DO May 15, 2020 12:51
--- NOTE | 2020-05-15 11:23 | History & Physical-Hospitalist ---
ASTON OMER MED STUDENT 05/15/20 1123: History of Present Illness HPI/Chief Complaint Respiratory problems & UE pain Source: patient Exam Limitations: no limitations Date Seen 05/15/20 Attending Physician Genoveva Daly DO [facility] Referring Physician Date of Admission May 14, 2020 at 21:21 Home Medications & Allergies Home Medications Reviewed patient Home Medication Reconciliation performed by pharmacy medication reconciliations dialysis equipment technician and/or nursing. Patients Allergies have been reviewed. Allergies Allergies Coded Allergies No Known Drug Allergies (Unverified12/29/16) Past Uflszgh-Wvisvi-Fpgfkk Hx Past Med/Social Hx: Reviewed Nursing Past Med/Soc Hx Patient Social History Marrital Status: Number of Children: 4 Number of living children: 4 Living Status: Living with significant other Employed/Student: employed ([employer]), student, full-time ([employer]) Alcohol Use: Denies Use Recreational Drug Use: No Smoking Status: Former Smoker Former Smoker, Quit: Jun 07, 2002 Type Used: Cigarettes 2nd Hand Smoke Exposure: No Recent Foreign Travel: No Contact w/other who traveled: No Immunizations Up To Date Tetanus Booster (TDap): Unknown Date of Pneumonia Vaccine: Apr 06, 2012 Seasonal Allergies Seasonal Allergies: Yes (MILD) Past Medical History Surgeries: Tonsillectomy, Tubal Ligation SOB on exertion Cardiac: Hypertension : No Hx : 4 Hx Para: 4 Hx Total # of Abortions(Spont): 0 Reproductive: No Sexually Transmitted Disease: Yes (Unknown 1-2 years ago) HIV/AIDS: No Female Reproductive Disorders: Denies Tubal Ligation Genitourinary: Kidney Infection (During ) Endocrine: Hypothyroidsim Loss of Vision: Denies Optic nerve bleeding and floating tumor History of Blood Disorders: Yes (iron deficiency anemia ) Adverse Reaction to Blood [place]: No (HAS HAD BLOOD WITH NO PROBLEMS) Family History Reviewed Nursing Family Hx Cardiovascular disease 19 FATHER 19 MOTHER Congenital heart disease 19 MOTHER Hypertension 19 MOTHER Myocardial infarction 19 MOTHER Heart Disease, Diabetes, Hypertension, Other Conditions/Hx (lupus ) Father: colon Paternal grandmother: breast cancer Materanl aunt: leukemia & lupus Review of Systems Constitutional: No no symptoms reported, No see HPI, No chills, No diaphoresis, No dizziness, No fever; malaise, weakness; No weight gain, No weight loss, No other EENTM: No see HPI, No no symptoms reported, No ear discharge, No hearing loss, No ear pain, No blurred vision, No double vision, No eye pain, No tearing, No vision loss, No dental problems, No hoarseness, No mouth pain, No mouth swelling, No epistaxis, No nose congestion, No nose pain, No throat pain, No throat swelling, No other Respiratory: No no symptoms reported, No see HPI, No cough; dyspnea on exertion; No hemoptysis, No orthopnea, No phlegm, No short of breath, No stridor, No wheezing, No other Cardiovascular: No no symptoms reported, No see HPI; chest pain; No edema, No Hx of Intervention, No palpitations, No syncope, No vascular heart diseas, No other Gastrointestinal: No RUQ, No LUQ, No RLQ, No LLQ, No no symptoms reported, No see HPI, No abdominal pain, No constipation, No diarrhea, No dysphagia, No hematemesis, No heartburn, No jaundice, No loss of appetite, No melena, No nausea, No vomiting, No other Genitourinary: No no symptoms reported, No see HPI, No decreased output, No discharge, No dysuria, No frequency, No hematuria, No hesitancy, No incontinence, No nocturia, No pain, No other : No Musculoskeletal: No no symptoms reported, No see HPI, No back pain, No gout, No joint pain, No joint swelling; muscle pain (Right leg pain); No muscle stiffn ess, No muscle cramps, No muscle twitching, No muscle weakness, No neck pain, No other Skin: No no symptoms reported, No see HPI, No change in color, No change in hair/nails, No dryness, No hx of skin cancer, No lesions, No lumps, No pruritus, No rash; other (Itching) Psychiatric/Neurological: Denies No Symptoms Reported, Denies See HPI, Denies Anxiety, Denies Depressed, Denies Emotional Problems; Headache; Denies Numbness, Denies Paresthesia, Denies Pre-Existing Deficit, Denies Seizure, Denies Tingling, Denies Tremors, Denies Weakness, Denies Other Physical Exam Physical Exam Vital Signs Vital Signs - First Documented 05/14/20 19:00 Temp 37.2 Pulse 116 Resp 22 B/P (MAP) 186/82 (116) Pulse Ox 99 O2 Delivery Room Air Capillary Refill : Less Than 3 Seconds Height, Weight, BMI Height: 5'2.00" Weight: 272lbs. 0.0oz. 123.893861gn; 49.29 BMI Method:Stated General Appearance: No Apparent Distress, Obese Eyes: Bilateral Eye Normal Inspection, Bilateral Eye PERRL, Bilateral Eye EOMI HEENT: PERRL/EOMI, Pharynx Normal Neck: Full Range of Motion, Supple Respiratory: Chest Non Tender, Lungs Clear, Normal Breath Sounds, No Accessory Muscle Use, No Respiratory Distress Cardiovascular: Regular Rate, Rhythm, No Edema, No Gallop, No Murmur Gastrointestinal: Normal Bowel Sounds, No Organomegaly, No Pulsatile Mass, Soft, Tenderness (RUQ to moderate palpation & LLQ to light palpation) Extremity: Normal Capillary Refill, Normal Inspection, Normal Range of Motion, Other (Painful left LE to palpation & exertion ) Neurologic/Psychiatric: Alert, Oriented x3, No Motor/Sensory Deficits, Normal Mood/Affect, paper pattern folder II-XII Norm as Tested Reflexes: 2+ Bicep (R), 2+ Bicep (L), 2+ Ankle (R), 2+ Ankle (L) Skin: Warm/Dry, Pallor Results Results/Procedures Labs Laboratory Tests 05/14/20 19:32 05/15/20 06:15 Patient resulted labs reviewed. 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 Issa will see her for colon polyps, Dr. Garcia will see her for menorrhagia, pelvic ultrasound and transvaginal ultrasound ordered for him and Dr. Mulligan will see her due to severe anemia and normal reticulocyte count. She does not smoke. Time Seen by a Provider: 10:00 Past Vbcaojz-Jxgwcd-Hauqrl Hx Past Med/Social Hx: Reviewed Nursing Past Med/Soc Hx, Reviewed and Corrections made Family History Cardiovascular disease 19 FATHER 19 MOTHER Congenital heart disease 19 MOTHER Hypertension 19 MOTHER Myocardial infarction 19 MOTHER Review of Systems Constitutional: see HPI, malaise, weakness Physical Exam Physical Exam General Appearance: No Apparent Distress Eyes: Right Eye Normal Inspection, Right Eye PERRL HEENT: PERRL/EOMI, TMs Normal, Normal ENT Inspection, Pharynx Normal, Moist Mucous Membranes Neck: Full Range of Motion, Normal Inspection, Non Tender Respiratory: Chest Non Tender, Lungs Clear, Normal Breath Sounds, No Accessory Muscle Use, No Respiratory Distress Cardiovascular: Regular Rate, Rhythm, No Edema, No Gallop, No JVD, No Murmur, Normal Peripheral Pulses Gastrointestinal: Normal Bowel Sounds, No Organomegaly, No Pulsatile Mass, Non Tender, Soft Back: Normal Inspection, No CVA Tenderness, No Vertebral Tenderness Extremity: Normal Capillary Refill, Normal Inspection, Normal Range of Motion, Non Tender, No Calf Tenderness, No Pedal Edema Neurologic/Psychiatric: Alert, Oriented x3, No Motor/Sensory Deficits, Normal Mood/Affect Skin: Normal Color, Warm/Dry Lymphatic: No Adenopathy Assessment/Plan Admission Diagnosis Assessment: Severe anemia Menorrhagia Colon polyps Plan: Transfuse USG Dr Morro Issa Admission Status: Observation Reason for Inpatient Admission: severe anemia Supervisory-Addendum Brief Verification & Attestation Participated in pt care: history, MDM, physical Personally performed: exam, history, MDM, supervision of care Care discussed with: Medical Student Procedures: n/a Results interpretation: Verified all documentation Verification and Attestation of Medical Student E/M Service A medical student performed and documented this service in my presence. I reviewed and verified all information documented by the medical student and made modifications to such information, when appropriate. I personally performed the physical exam and medical decision making. Genoveva Daly, May 15, 2020,21:31 ASTON OMER MED STUDENT May 15, 2020 11:23 GENOVEVA DALY DO May 15, 2020 21:31
--- NOTE | 2020-05-15 11:57 | Diagnostic Imaging Report ---
INDICATION: Right ankle pain. FINDINGS: Three views. Ankle mortise is in good alignment. Articulating surfaces are smooth. Joint spaces are well-maintained. No fractures. No hypertrophic bony changes. IMPRESSION: Normal right ankle. Dictated by: Dictated on workstation # [id number]
--- NOTE | 2020-05-15 11:59 | Diagnostic Imaging Report ---
INDICATION: Right foot pain. FINDINGS: 3 views. There are no fractures. No dislocations. Articulating surfaces are smooth. Joint spaces are well-maintained. There is a moderate enthesophyte along the plantar fascial attachment to calcaneus. IMPRESSION: 1. Plantar bone spur. 2. No acute abnormalities. Dictated by: Dictated on workstation # [id number]
--- NOTE | 2020-05-15 12:01 | Diagnostic Imaging Report ---
INDICATION: Right leg pain. FINDINGS: Three views. Right knee shows good preservation of the joint space. Articulating surfaces are smooth. No hypertrophic bony changes. Patellofemoral joint is in good alignment. No fractures. No chondrocalcinosis or loose bodies. IMPRESSION: Normal right knee. Dictated by: Dictated on workstation # [id number]
[2020-05-15] MEDS ORDERED: ACET-2267 PO (12:58)
--- NOTE | 2020-05-15 13:14 | NUR ---
SPOKE WITH THE PT TO COMPLETE THE MED REC PT DENIES TAKING ANY PRESCRIPTION MEDICATIONS AND SAYS IT HAS BEEN AT LEAST 2 YEARS SINCE SHE TOOK PER PRESCRIBED MEDS OTC: TYLENOL 500MG- PT SAYS SHE TAKES 4 TABS AT A TIME
--- NOTE | 2020-05-15 13:22 | NUR ---
PT TO ROOM 417 VIA WC ACCOMPANIED BY PCT. REPORT GIVEN TO DWAINE RICE. ALL PERSONAL BELONGINGS SENT WITH PT.
--- NOTE | 2020-05-15 13:30 | NUR ---
Patient transferred to [facility] per accompanied by ICU N.A.staff. Patient and family notified and understand transfer. Personal belongings with patient. Report given to THIS RN AT 1318 BY [employer] CONSULTANT .
--- NOTE | 2020-05-15 14:00 | NUR ---
DR SURESH ON FLOOR AND IN TO SEE PT
--- NOTE | 2020-05-15 14:00 | Diagnostic Imaging Report ---
PROCEDURE: US Non-ob pelvis comp/trans. TECHNIQUE: Multiple realtime grayscale images were obtained of the pelvis in various projections endovaginally. Transabdominal imaging was also performed. INDICATION: Anemia. FINDINGS: The uterus is anteverted and measures 13.5 x 9.8 x 9.1 cm. Endometrial thickness is approximately 1.4 cm. There is a sub-mucosal fibroid measuring 7.1 x 7.3 x 7.2 cm. Neither ovary was visualized. There are no adnexal masses. There is no free pelvic fluid. IMPRESSION: 7.3 cm submucosal fibroid somewhat obscuring the endometrium. The uterus is anteverted and there is thickening of the endometrium up to 1.4 cm presumably reflecting a proliferative phase of the patient's menstrual cycle. Recommend clinical correlation. Dictated by: Dictated on workstation # [id number]
--- NOTE | 2020-05-15 14:26 | CONSULTATION REPORT ---
DATE OF SERVICE: 05/15/2020 The patient is admitted to room 417. PHYSICIAN REQUESTING CONSULTATION: Genoveva Conrad DO IMPRESSION: A 40-year-old female admitted from the emergency room with significant anemia and the patient presented with worsening dyspnea on exertion and right lower extremity pain. She received 3 units of packed red blood cell transfusion since admission and hematology consultation was requested for further recommendations. The patient gives previous history of anemia requiring PRBC transfusion 2 to 3 years ago and underwent an EGD and colonoscopy at that time, which was reported as unremarkable. She denied any history of hematochezia or melena. No hematuria or dark colored urine. She has been having regular menstrual cycles, which are heavy with flow lasting anywhere from 8 to 9 days with the patient using 8 to 10 tampons per day. She has not had a CRAS evaluation or any hormonal manipulation to try to control this. She did complain of intermittent hot flashes since the last two years even though her menstrual cycles have been regular. PAST MEDICAL HISTORY: Unremarkable except for a previous history of anemia and has required transfusion. She was on oral iron replacement for some time, but did not continue this long-term. She was diagnosed with hypothyroidism in the past and has been on replacement, although irregularly. History of hypertension for which she is on treatment. PAST SURGICAL HISTORY: Include tonsillectomy and adenoidectomy in childhood. Tubal ligation approximately 18 to 20 years ago and EGD and colonoscopy in 2017. SOCIAL HISTORY: The patient is from her previous approximately 18 to 20 years ago. She is living with her significant other since the last several years. She has previous history of tobacco use, but quit in 2001. Denied any significant alcohol or recreational drug use. She is currently employed at the [employer]. She has four children from her previous marriage, all of whom are adults. Two sons and two daughters. Two of her children live in [place] and the other two live in [place]. FAMILY HISTORY: Significant for coronary artery disease in both parents. Her mother required open heart surgery in her early 40s and her father in his 50s. She has 5 siblings, but has no contact except for one sister who does not have significant medical problems. Father had colon cancer. Paternal grandmother had breast cancer. Maternal aunt had leukemia and was diagnosed with lupus. PHYSICAL EXAMINATION: GENERAL: Showed middle-aged female, obese, awake and oriented, in no acute distress at the time of evaluation. VITAL SIGNS: Temperature was 36.6 degree centigrade, pulse rate of 79, respirations 18, blood pressure 157/91 with oxygen saturation of 99% on room air. HEENT: Normocephalic, extraocular muscles intact, conjunctivae pale, oral mucosa moist. NECK: Supple, with no JVD. No cervical, supraclavicular or axillary lymphadenopathy palpable. CHEST: Symmetrical. LUNGS: Fairly clear to auscultation without wheezes or rales. CARDIOVASCULAR: Regular in rate and rhythm. No murmurs or gallops heard. ABDOMEN: Obese, soft, nontender with no hepatosplenomegaly or other masses palpable. EXTREMITIES: Showed no edema. NEUROLOGIC: Showed no focal motor deficits. I reviewed her CBC done at the time of admission, which showed white count of 9.7, hemoglobin 4.6, MCV 67, RDW 22.4, platelet count 406,000 with neutrophil count 7.2, lymphocyte count 1.3 and monocyte count 1.0. Absolute reticulocyte count was 59,000. She received 3 units of packed red blood cells and a followup CBC done on 05/15/2020 showed white count of 9.2, hemoglobin 6.8 with MCV 72 and platelet count 362,000. Chemistry panel done at the time of admission showed normal electrolytes. BUN was 11 and creatinine 0.9 with GFR more than 60 mL per minute. Liver function studies were within normal limits. TSH was elevated at 12.31. Protime was 14.1 with INR of 1.1 and PTT of 29. D-dimer was slightly elevated at 0.52. Serum iron studies done at the time of admission is pending at this time. RECOMMENDATIONS: 1. Agree with PRBC transfusion for symptomatic anemia. 2. Most likely, the patient has iron deficiency anemia due to menorrhagia. I will await the iron studies and if ferritin level is low, we will make arrangements for oral iron replacement if she can tolerate this. If not, she will need parenteral iron therapy. 3. Consider a CRAS consultation because of menorrhagia. 4. Hypothyroidism. The patient has not been taking the levothyroxine regularly and would start her on levothyroxine and adjust the dose to maintain euthyroid state. 5. We will follow the patient with you. Thank you for allowing me to participate in this patient's care. Job ID: [id number] DocumentID: [id number] Dictated Date: 05/15/2020 14:03:40 Wash Driller Helper Date: 05/15/2020 14:25:42 Dictated By: LINA SURESH MD
--- NOTE | 2020-05-15 14:35 | NUR ---
CM/SS: Visited with pt as to plan for discharge as well as establishing a physician after discharge and other medical follow up Plan: Pt is from home and will return there - services are unknown at this time Summary: Pt is from home and reports she is feeling a little better. Pt reports that she does not have a regular doctor and has not been to a doctor in two years. She reports she now understands the importance of needing to have a physician. [facility]iscussed [facility]. Pt reports she is familiar with them as she went a few years ago. She seems to be ok to start going again and getting established with a doctor, and being able follow with some one and obtain her medications. Pt seems open to doing what she needs to get medical care after her hospital stay. Pt has talked with Financial Services and verbally plans to submit documentation to assist with her hospital bill balance. This worker will follow up.
[2020-05-16 04:35] VITALS: BP 133/68
[2020-05-16] MEDS: LEVOTHYROXINE 50 MCG (LEVOTHROID) TAB PO SCH (06:01)
[2020-05-16 07:28] VITALS: BP 130/68
--- NOTE | 2020-05-16 07:33 | Consultation ---
History of Present Illness History of Present Illness Patient Consulted On(lala/time) 05/16/20 07:30 Date Seen by Provider: May 16, 2020 Time Seen by Provider: 08:00 Reason for Visit: Anemia, Right leg pain History of Present Illness Patient admitted by IM service for severe anemia. Was given PRBC x 3 units at time of consultation. Workup for bleeding started including GS consultation. Pelvic US obtained. Allergies and Home Medications Allergies Coded Allergies: No Known Drug Allergies (Unverified , 12/29/16) Home Medications Acetaminophen 500 Mg Tablet, 2,000 MG PO Q8H PRN for PAIN-MILD (1-4), (Reported) Patient Home Medication List Home Medication List Reviewed: Yes Past Vtkrvcf-Bqaodg-Dbqiap Hx Past Med/Social Hx: Reviewed Nursing Past Med/Soc Hx, Reviewed and Corrections made Patient Social History Alcohol Use: Denies Use Recreational Drug Use: No Smoking Status: Former Smoker Type Used: Cigarettes Former Smoker, Quit: Jun 07, 2002 2nd Hand Smoke Exposure: No Recent Foreign Travel: No Contact w/Someone Who Travel: No Immunizations Up To Date Tetanus Booster (TDap): Unknown Date of Pneumonia Vaccine: Apr 06, 2012 Seasonal Allergies Seasonal Allergies: Yes (MILD) Past Medical History Surgeries: Yes (colonoscopy and EGD with sigmoid polypectomy) Tonsillectomy, Tubal Ligation Respiratory: No Cardiac: Yes Hypertension : No Hx : 4 Hx Para: 4 Hx Total # of Abortions (Sp): 0 Reproductive Disorders: No 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 Sexually Transmitted Disease: Yes (Unknown 1-2 years ago) HIV/AIDS: No Genitourinary: No Kidney Infection (During ) Endocrine: Yes Hypothyroidsim Loss of Vision: Denies Cancer: No Blood Disorders: Yes (iron deficiency anemia ) Adverse Reaction/Blood Tranf: No (HAS HAD BLOOD WITH NO PROBLEMS) Family Medical History Reviewed Nursing Family Hx Cardiovascular disease 19 FATHER 19 MOTHER Congenital heart disease 19 MOTHER Hypertension 19 MOTHER Myocardial infarction 19 MOTHER Heart Disease, Diabetes, Hypertension Father: colon Paternal grandmother: breast cancer Materanl aunt: leukemia & lupus Review of Systems-General Constitutional: see HPI EENTM: see HPI Respiratory: see HPI Gastrointestinal: see HPI Genitourinary: see HPI : No Musculoskeletal: see HPI Skin: see HPI Psychiatric/Neurological: See HPI All Other Systems Reviewed Negative Unless Noted: Yes Physical Exam-General Problems Physical Exam Vital Signs Vital Signs - First Documented 05/14/20 19:00 Temp 37.2 Pulse 116 Resp 22 B/P (MAP) 186/82 (116) Pulse Ox 99 O2 Delivery Room Air Capillary Refill : Less Than 3 Seconds General Appearance: WD/WN, no apparent distress HEENT: PERRL/EOMI Neck: non-tender Respiratory: chest non-tender Cardiovascular: regular rate, rhythm Neurologic/Psychiatric: normal mood/affect, oriented x 3 Skin: normal color Assessment/Plan Assessment/Plan Admission Diagnosis/Plan 40 yo female with severe anemia Fibroid uterus (7x7 cm submucosal fibroid) BMI 49 Admission Status: Observation Reason for Inpatient Admission: Due to patient BMI and bleeding pattern would recommend outpatient follow up, needing endometrial sampling. Will consider permanent treatment for fibroid pending path results and further discussion Clinical Quality Measures DVT/VTE Risk/Contraindication: Risk Factor Score Per Nursin RFS Level Per Nursing on Admit: 1=Low/No VTE PPX TEETEE SANTORO DO May 16, 2020 07:33
[2020-05-16] MEDS: amLODIPine 5 MG (NORVASC) TAB PO SCH (08:17)
--- NOTE | 2020-05-16 09:00 | NUR ---
KPAD OBTAINED FOR BACK PAIN - STATES HAS SPASMS IN BACK. DENIES OTHER PAIN - "JUST TIRED". DR. SANTORO HERE TO SEE PATIENT.
[2020-05-16] MEDS ORDERED: IRON SUCROSE 200 MG/10 ML (VENOFER) VIAL IV SCH (09:15)
[2020-05-16] MEDS ORDERED: LEVO50TA PO (09:54)
[2020-05-16] MEDS ORDERED: IRON100V2 IV (09:54)
[2020-05-16] MEDS ORDERED: AMLO5TAB9 PO (09:54)
--- NOTE | 2020-05-16 09:54 | Discharge Summary ---
Discharge Summary Hospital Course Was the Problem List Reviewed?: Yes Problems/Dx: (1) Severe anemia Status: Acute Hospital Course Date of Admission: May 14, 2020 at 21:21 Admission Diagnosis : Family Physician/Provider: [place] Date of Discharge: 05/16/20 Discharge Diagnosis: severe anemia, iron deficiency, right leg pain, uterine f ibroid, colon polyps Hospital Course: Hospital course: Pt had an uneventful hospital course, when she was admitted with a Hgb of 4.3, three units of blood were transfused and labs remained stable, hematology was consulted, evaluated the Pt to have severe iron deficiency anemia, she was given IV iron and she will continue that for four more doses and will follow-up with Dr. Mulligan. Dr. Garcia did see the Pt for menorrhagia, a source of the severe anemia. Dr. Wren will see her in close follow-up for colonoscopy due to colon polyps. BP was managed with the addition of BP medication and that was also sent in to [facility]. Labs and Pending Lab Test: Home Meds Active Reported Tylenol Extra Strength (Acetaminophen) 500 Mg Tablet 2,000 Mg PO Q8H PRN Assessment/Pt Instructions [facility] 1 week Discharge Planning: <30 minutes discharge planning Discharge Instructions Discharge Diet: No Restrictions Discharge Physical Examination Vital Signs Vital Signs Date Time Temp Pulse Resp B/P (MAP) Pulse Ox O2 Delivery O2 Flow Rate FiO2 05/16/20 08:00 98 Room Air 05/16/20 07:28 36.8 74 16 130/68 (88) General Appearance: No Apparent Distress, WD/WN, Chronically ill Respiratory: Chest Non Tender, Lungs Clear, Normal Breath Sounds, No Accessory Muscle Use, No Respiratory Distress Cardiovascular: Regular Rate, Rhythm, No Edema, No Gallop, No JVD, No Murmur, Normal Peripheral Pulses Allergies: Coded Allergies: No Known Drug Allergies (Unverified , 12/29/16) Discharge Summary Date of Admission May 14, 2020 at 21:21 Date of Discharge Discharge Date: May 16, 2020 Admission Diagnosis Assessment: Severe anemia Menorrhagia Colon polyps Plan: Transfuse US[facility] Dr Morro Wren Clinical Quality Measures DVT/VTE Risk/Contraindication: Risk Factor Score Per Nursin RFS Level Per Nursing on Admit: 1=Low/No VTE PPX ZEYNEP DALY DO May 16, 2020 09:54
--- NOTE | 2020-05-16 10:00 | NUR ---
STARTED ON IV VENOFER. DR. DALY HERE AND PLANS FOR DISCHARGE TODAY. DAUGHTER VISITING.
--- NOTE | 2020-05-16 11:20 | Physical Therapy Progress Note ---
Therapy Progress Note Order for PT evaluation received. Patient states she sees no reason for PT. She says she is ambulating on her own and feels just fine, no LOB or unsteadiness or weakness. Patient is confident that she will be able to ambulate and get around at home without difficulty. Will DC patient at this time. Told patient that if she feels like she needs PT later to contact her nurse and we can come back. LIDA RUSSELL PT May 16, 2020 11:20
[2020-05-16 11:27] VITALS: BP 159/79
--- NOTE | 2020-05-16 13:25 | NUR ---
CM/SS: Visited with pt as to plan for discharge Plan: Pt to return home with follow up appts for her medical appointments to get established with a new physician Summary: Pt reports feeling better today and that she is ready to go home. Pt reports having follow up appointments and that she will plan to attend, as she understands the importance of seeing about her medical care. Pt reports she has to been in good shape in order to care for her significant other, She also states that she will need to take care of her special needs grandchild. She works at [employer], and is training to get ready to prepare for [place] season. Pt feels as if this is a wake up call for her health, and verbalizes she will follow up on all of her health appointments and will also pickle maker medications that [facility]. Pt is wished well. Pt plans to have her daughter pick her up at 2pm. Pt is wished well.
[2020-05-16] MEDS: fentaNYL INJECTION 100 MCG/2 ML AMP IVP PRN (13:59)
[2020-05-16 14:29] VITALS: BP 159/79
--- NOTE | 2020-05-16 15:24 | NUR ---
Application for Patient Assistance application for Injectefer initiated [facility]
== END 2020-05-16 14:20 | disposition home or self-care (01) ==
LOC: EDUNIT# 18:29 → ER 18:31 → ICU 21:21 → 4TH 05-15 13:26
PROVIDERS: ADMIT Internal Medicine; ATTEND Internal Medicine
DX: D50.9 Iron deficiency anemia, unspecified (principal); K63.5 Polyp of colon; D25.9 Leiomyoma of uterus, unspecified; E78.00 Pure hypercholesterolemia, unspecified; I10 Essential (primary) hypertension; G43.909 Migraine, unspecified, not intractable, without status migrainosus; E03.9 Hypothyroidism, unspecified; M19.90 Unspecified osteoarthritis, unspecified site; F41.9 Anxiety disorder, unspecified; R06.02 Shortness of breath; M79.604 Pain in right leg; N92.1 Excessive and frequent menstruation with irregular cycle; E66.01 Morbid (severe) obesity due to excess calories; Z68.42 Body mass index [BMI] 45.0-49.9, adult; Z79.899 Other long term (current) drug therapy; Z87.891 Personal history of nicotine dependence
CPT/HCPCS: 36430; 71045; 73562; 73610; 73630; 76830; 76856; 80048; 80053; 81000; 82728; 83540; 83605; 83735; 83880; 84145; 84439; 84443; 84484; 84703; 85025 ×2; 85045; 85379; 85610; 85730; 86141; 86850; 86900; 86901; 86920; 93005; 93041; 93971; 99291; G0378; P9016 ×2; 36415

== ENCOUNTER 2020-06-22 05:35 | Outpatient (RCR) | payer OTHER ==
[~2020-06-22] VITALS: Ht 160 cm; Wt 127.7 kg
[~2020-06-22 05:35] MED LIST changes: +ACET-2267 PO; +AMLO5TAB9 PO; +IRON100V2 IV; +LEVO50TA PO
[2020-06-25] MEDS ORDERED: IBUP-844 PO (08:42)
[2020-06-25] MEDS ORDERED: SIME80TA16 PO (08:42)
[2020-06-25] MEDS ORDERED: DCS100C PO (08:42)
[2020-06-25] MEDS ORDERED: OXYC1TAB87 PO (08:42)
== END 2020-06-22 09:19 | disposition home or self-care (01) ==
LOC: PREOP 05:35
PROVIDERS: ATTEND Obstetrics & Gynecology
DX: Z01.812 Encounter for preprocedural laboratory examination (principal); Z20.828 Contact with and (suspected) exposure to other viral communicable diseases
CPT/HCPCS: 87635

== ENCOUNTER 2020-06-25 07:25 | Day surgery (SDC) | payer OTHER ==
[2020-06-25] VITALS (11 sets, daily range): BP systolic 139–166; BP diastolic 79–99
[~2020-06-25] VITALS: Ht 160 cm; Wt 127.7 kg
[2020-06-25] MEDS ORDERED: LACTATED RINGERS 1,000 ML IV SCH ×2 (07:38→08:34)
[2020-06-25] MEDS ORDERED: LIDOCAINE PF 2% 5 ML (XYLOCAINE) VIAL ONE (07:44)
[2020-06-25] MEDS ORDERED: proPOfol 200 MG/20 ML (DIPRIVAN) VIAL IV ONE (07:44)
[2020-06-25] MEDS ORDERED: ONDANSETRON 4 MG/2 ML (SDV) Z0FRAN ONE (07:44)
[2020-06-25] MEDS ORDERED: ROCURONIUM 10 MG/ML 5 ML SYRINGE IV ONE (07:44)
[2020-06-25] MEDS ORDERED: ceFAZolin 2 GM IV Premixed 50 ML IV ONE (07:45)
[2020-06-25] MEDS ORDERED: MIDAZOLAM 2 MG/2 ML (VERSED) VIAL ONE (07:45)
[2020-06-25] MEDS ORDERED: metroNIDAZOLE 500MG/100ML IVPB 100 ML IV ONE (07:45)
[2020-06-25] MEDS ORDERED: fentaNYL INJECTION 100 MCG/2 ML AMP ONE ×2 (07:45→10:35)
[2020-06-25] MEDS ORDERED: BUPIVACAINE 0.25% 30 ML (SENSORCAINE) VIAL ONE (08:13)
[2020-06-25 08:15] LABS: BASOPHILS # (AUTO) 0.1 10^3/uL (0.0-0.1); BASOPHILS % (AUTO) 1 % (0-10); EOSINOPHILS # (AUTO) 0.1 10^3/uL (0.0-0.3); EOSINOPHILS % (AUTO) 1 % (0-10); HEMATOCRIT 35 % (35-52); HEMOGLOBIN 11.4 g/dL (11.5-16.0); LYMPHOCYTES # (AUTO) 0.9 10^3/uL (1.0-4.0); LYMPHOCYTES % (AUTO) 10 % (12-44); MEAN CORPUSCULAR HEMOGLOBIN 29 pg (25-34); MEAN CORPUSCULAR HGB CONC 32 g/dL (32-36); MEAN CORPUSCULAR VOLUME 90 fL (80-99); MEAN PLATELET VOLUME 10.1 fL (9.0-12.2); MONOCYTES # (AUTO) 0.6 10^3/uL (0.0-1.0); MONOCYTES % (AUTO) 6 % (0-12); NEUTROPHILS # (AUTO) 7.5 10^3/uL (1.8-7.8); NEUTROPHILS % (AUTO) 82 % (42-75); PLATELET COUNT 388 10^3/uL (130-400); WHITE BLOOD COUNT 9.1 10^3/uL (4.3-11.0)
--- NOTE | 2020-06-25 08:24 | Progress Note-Pre Operative ---
Pre-Operative Progress Note H&P Reviewed The H&P was reviewed, patient examined and no changes noted. Date Seen by Provider: Jun 25, 2020 Time Seen by Provider: 08:20 Date H&P Reviewed: Jun 25, 2020 Time H&P Reviewed: 08:20 Pre-Operative Diagnosis: Fibroid uterus, CPP TEETEE SANTORO DO Jun 25, 2020 08:24
[2020-06-25] MEDS ORDERED: DCS100C PO (08:42)
[2020-06-25] MEDS ORDERED: IBUP-844 PO (08:42)
[2020-06-25] MEDS ORDERED: OXYC1TAB87 PO (08:42)
[2020-06-25] MEDS ORDERED: SIME80TA16 PO (08:42)
--- NOTE | 2020-06-25 08:43 | Discharge Inst-Women's Service ---
Discharge Inst-Women's Serv Depart Medication/Instructions New, Converted or Re-Newed RX: RX on Chart Problems Reviewed?: Yes Consults/Follow Up Additional Follow Up: Yes Orders/Referrals Dr. Garcia in 7-10 days and in 8 weeks Activity Activity: Activity as Tolerated Driving Instructions: No Driving for 1 Week NO SMOKING: NO SMOKING Nothing Inside Vagina: No Douching, No [place], No Tampons Diet Discharge Diet: No Restrictions Symptoms to Report to : Bleeding Excessive, Pain Increased, Fever Over 101 Degrees F, Vaginal Bleeding Increase, Questions/Concerns For Any Problems or Questions: Contact Your Physician Skin/Wound Care Infection Signs and Symptoms: Increased Redness, Foul Odor of Wound, Increased Drainage, Skin Itchy or Has a Rash, Increased Swelling, Temperature Above 101 F Operative Area Clean and Dry: Keep Incision Clean/Dry Stitches/Brett/Dermabond: Dermabond, Care of Stitches Bathing Instructions: TEETEE Sweet DO Jun 25, 2020 08:43
[2020-06-25] MEDS ORDERED: DOCUSATE SODIUM 100 MG (COLACE) CAP PO PRN (08:45)
[2020-06-25] MEDS ORDERED: SIMETHICONE 80 MG (MYLICON) CHEW PO PRN (08:45)
[2020-06-25] MEDS ORDERED: ONDANSETRON 4 MG/2 ML (SDV) Z0FRAN IV PRN (08:45)
[2020-06-25] MEDS ORDERED: CHLORASEPTIC LOZENGE MM PRN (08:45)
[2020-06-25] MEDS ORDERED: ZOLPIDEM 5 MG (AMBIEN) TAB PO PRN (08:45)
[2020-06-25] MEDS ORDERED: ANTACID SUSP 30 ML UDC (MYLANTA) PO PRN (08:45)
[2020-06-25] MEDS: LACTATED RINGERS 1,000 ML IV PRN ×2 (09:15→10:30)
[2020-06-25] MEDS ORDERED: PHENYLEPHRINE 100 MCG/ML 10 ML (ANESTHESIA) SYR ONE (10:16)
[2020-06-25] MEDS ORDERED: SEVOFLURANE (ULTANE) 15 ML INHAL SOLN ONE ×2 (10:27→10:37)
[2020-06-25] MEDS ORDERED: NEOSTIGMINE 3 MG/3 ML VIAL ONE (10:34)
[2020-06-25] MEDS ORDERED: GLYCOPYRROLATE 0.2 MG/ML (ROBINUL) 2 ML VIAL ONE (10:34)
[2020-06-25] MEDS ORDERED: KETOROLAC 30 MG/ML VIAL ONE (11:03)
[2020-06-25] MEDS ORDERED: HYDROmorphone 2 MG/ML VIAL (DILAUDID) ONE (11:03)
[2020-06-25] MEDS: KETOROLAC 30 MG/ML VIAL IV PRN ×2 (11:09→17:35)
[2020-06-25] MEDS ORDERED: PROMETHAZINE INJ 25 MG/ML (PHENERGAN) AMP IVP ONE (11:15)
[2020-06-25] MEDS ORDERED: ONDANSETRON 4 MG/2 ML (SDV) Z0FRAN IVP PRN (11:15)
[2020-06-25] MEDS ORDERED: MEPERIDINE (DEMEROL) INJ 50 MG/ML IVP ONE (11:15)
[2020-06-25] MEDS ORDERED: HYDROmorphone 2 MG/ML VIAL (DILAUDID) IV ONE (11:15)
[2020-06-25] MEDS ORDERED: fentaNYL INJECTION 100 MCG/2 ML AMP IVP ONE (11:15)
[2020-06-25] MEDS ORDERED: morphine INJ 10 MG/ML 1ML (SYR OR VIAL) IVP ONE (11:15)
--- NOTE | 2020-06-25 11:50 | NUR ---
Transfer and pt report to 304 at 1150 from Carly Ferrara RN. Pt resting, arouses to touch/pain. O2 at 4 L/min. Ice on abdomen. SCD's attached. Bandaids x 3 without drainage. Addendum: 06/25/20 at 1748 by MYRNA FERRARA RN report from Raman Duran RN not Carly Ferrara RN
--- NOTE | 2020-06-25 13:05 | NUR ---
Awakened pt with touch/shaking and name. Pt drowsy and not sure of her surrounds due to surgery. Oxygen decreased gradually over last hour. Now at 1L of oxygen per NC. Nigel clay'd with 30mls. Pt complaining of abdomen hurting. Rates 7 but pt is so drowsy, falls back to sleep after sip of water of HOB elevated. Offered to call "Heri" for her. Phone and call light on abdomen. Ice on incision. Will continue to check on frequently. Refused food - requested jello.
[2020-06-25] MEDS: oxyCODONE/APAP 5/325MG (PERCOCET 5) TABLET PO PRN ×3 (14:56→22:37)
--- NOTE | 2020-06-25 15:00 | NUR ---
Awake and alert. Requesting pain medication. Pt suggested 1 Percocet instead of 2. Addendum: 06/25/20 at 1751 by MYRNA WALLACE RN Time corrected 1500. Up to BR with assistance. Voided 100mls. Small amount of red vaginal bleeding. Drinking without nausea.
--- NOTE | 2020-06-25 17:15 | NUR ---
Dr Garcia notified of pt status and desires to stay overnight due to pain. Informed him of elevated BP's of 160's/90's. Will order her BP medication. She does not have it with her.
[2020-06-25] MEDS: amLODIPine 5 MG (NORVASC) TAB PO SCH (17:54)
--- NOTE | 2020-06-25 21:52 | OPERATIVE REPORT ---
DATE OF SERVICE: 06/25/2020 PREOPERATIVE DIAGNOSES: 1. A 40-year-old female with fibroid uterus. 2. Pelvic pain and pressure. 3. Abnormal uterine bleeding. POSTOPERATIVE DIAGNOSES: 1. A 40-year-old female with fibroid uterus. 2. Pelvic pain and pressure. 3. Abnormal uterine bleeding. PROCEDURE: Robotic-assisted total laparoscopic hysterectomy with bilateral salpingectomy, uterus weighing greater than 500 grams. SURGEON: Elvin Santoro DO DRAPERY AND UPHOLSTERY ESTIMATOR: Anusha Salazar DNP, was necessary for manipulation and retraction throughout the procedure. ANESTHESIA: General endotracheal. ESTIMATED BLOOD LOSS: Minimal. URINE OUTPUT: 150 mL clear at the end of the procedure. FLUIDS: 2 liters lactated Ringer's solution. FINDINGS: Grossly normal-appearing external female genitalia, grossly enlarged uterus with a fibroid occupying the myometrium, distorting the size of the uterus. Grossly normal appearing bilateral ovaries and fallopian tubes. SPECIMEN SENT: Uterus, cervix, bilateral fallopian tubes. INDICATIONS FOR PROCEDURE: This 40-year-old female is the patient consulted to me after having issues with acute on chronic blood loss anemia throughout this year. She has been on iron infusions and had to have a blood transfusion earlier in the year. Ultrasound revealed a 7 cm fibroid. The patient had also been reporting pelvic pressure which prompted the ultrasound ordered. By the time I had seen the patient, endometrial sampling had been performed, which was found to be negative. Due to ongoing issues with this, I discussed with the patient more definitive measures as she was completed with childbearing and had already had a tubal ligation. We discussed robotic hysterectomy versus more conservative measures for robotic hysterectomy being the most definitive measure. After all of her questions were answered pertaining to alternatives, we discussed the risk of the surgery itself including risks of bleeding, infection, damage to surrounding structures including, but not limited to bowel, bladder, ureter, kidneys, possible need for reoperation, postoperative complications, recovery timeframe, risk from anesthesia, possible need for blood transfusion and even . Everything was discussed with the patient in detail. She was agreeable to proceed. Consent was obtained in the preoperative area and the patient was taken to the operating room. OPERATIVE REPORT IN DETAIL: Once in the operating room, anesthesia was found to be adequate. She was placed in dorsal lithotomy position, prepped and draped in normal sterile fashion. Timeout was performed. Manning catheter was placed using sterile technique. A weighted speculum inserted to the patient's vagina. Right angle retractor was used to visualize the cervix, which an 0 Vicryl suture is placed through the anterior lip of the cervix at that point using my retraction. I then gently sound the uterine cavity, depth was found to be 8 cm. I selected 8 cm Carly uterine manipulator tip and a 4 cm colpotomy ring and assembling the Carly, I placed the manipulator tip into the uterus deploying the balloon and advanced the colpotomy ring around the vaginal fornix after which manipulation is appreciated on bimanual examination. All other instruments were removed from the patient's vagina, performed change of gloves and took my attention to the abdomen where infraumbilically I infiltrated this area using 0.25% Marcaine. Make 8 mm incision with a knife and directed Veress needle through the incision until intraperitoneal placement was confirmed using saline drop test. An opening pressure of 2 mmHg was noted. I proceeded to maximum pressure of 15 mmHg, at which point I removed the Veress needle and introduced an 8 mm blunt laparoscopic trocar. Once this was in place, I am able to confirm intraperitoneal placement using the laparoscope. I have the patient placed in steep Trendelenburg after the upper abdominal anatomy appears to be grossly normal. Once in steep Trendelenburg, I placed two lateral trocars. These were both 8 mm trocars, approximately 8 cm lateral to my infraumbilical trocar. Once these trocars are in place under direct visualization of laparoscope, I bring in the da Red robot and docked in appropriate fashion, placing the vessel sealer in the left hand and monopolar juanita in the right hand. I performed the following dissection bilaterally. I started at the uteroovarian ligament, bipolar cauterized and transected this using the vessel sealer. I then created a window in the mesosalpinx using the monopolar juanita and took this laterally amputating the fallopian tube from its surrounding blood supply. I then grasped the round ligament, bipolar cauterized and transected this using the vessel sealer. I then am able to grasp the entire broad ligament, which I bipolar cauterized and transected using the vessel sealer down to the level of the lower uterine segment, at which point I the anterior and posterior leaflets of the broad ligament. Anterior leaflet was taken around the anterior vaginal fornix. Posterior leaflet reflection was taken around the posterior vaginal fornix. This allows me to skeletonize the uterine vessels laterally, which I then bipolar cauterized and transected using vessel sealer. I then created a colpotomy at 12 o'clock position using monopolar juanita and took this circumferentially around the vaginal fornix amputating the cervix from the vagina. The entire specimen was then removed through the vagina with a significant amount of traction due to the size of the uterus. Once the uterus the vaginal opening and cuff was reapproximated and the lateral vaginal apices using 2-0 Vicryl suture in a [id number] fashion colposuspending it to the uterosacral ligaments. I then closed the remainder of the vaginal cuff using 2-0 V-Loc in a running fashion, after which there was no active bleeding noted from any of my dissection planes. I then undocked the da Red robot and proceeded with remainder of the case laparoscopically. After scrubbing back into the case, I copiously irrigated the pelvis using normal saline. Once again, there was no active bleeding noted from any of my dissection planes. I placed FloSeal hemostatic agent over all my planes of dissection to ensure excellent postoperative hemostasis. I then had the patient taken out of steep Trendelenburg and released the lateral trocars under direct visualization of the laparoscope. The infraumbilical trocars left in place to release insufflation and to introduce 10 mL of 0.25% Marcaine into the peritoneal cavity for postoperative pain management. I then removed this trocar as well. The skin reapproximated using 4-0 Monocryl and interrupted subcuticular stitches. Dermabond was applied to the incisions and Band-Aids were placed over the incisions as well. Manning catheter was left in place. The patient tolerated the procedure well and sent to recovery area in stable condition. Lap and sponge counts were correct at the end of the procedure. Instrument counts correct as well. Two grams of Ancef, 500 mg of Flagyl were given preoperatively for infection prophylaxis. Job ID: [id number] DocumentID: [id number] Dictated Date: 06/25/2020 12:06:30 Shoulder Puncher Date: 06/25/2020 21:52:22 Dictated By: ELVIN SANTORO DO
[2020-06-26 01:22] VITALS: BP 112/57
[2020-06-26] MEDS: KETOROLAC 30 MG/ML VIAL IV PRN (01:22)
[2020-06-26] MEDS ORDERED: IBUPROFEN 600 MG (MOTRIN) TAB PO SCH (05:00)
--- NOTE | 2020-06-26 07:37 | Anesthesia-General Post-Op ---
General Patient Condition Mental Status/LOC: Same as Preop Cardiovascular: Satisfactory Nausea/Vomiting: Absent Respiratory: Satisfactory Pain: Controlled Complications: Absent Post Op Complications Complications None Follow Up Care/Instructions Patient Instructions None needed. Anesthesia/Patient Condition Patient Condition Patient is doing well, no complaints, stable vital signs, no apparent adverse anesthesia problems. No complications reported per nursing. NAHED JOHN CRNA Jun 26, 2020 07:36
[2020-06-26 08:45] VITALS: BP 136/77
--- NOTE | 2020-06-26 08:45 | NUR ---
A.M. ASSESSMENT COMPLETED. VSS.
[2020-06-26] MEDS: amLODIPine 5 MG (NORVASC) TAB PO SCH (08:57)
--- NOTE | 2020-06-26 10:20 | NUR ---
DISCHARGE INSTRUCTIONS REVIEWED WITH COPY TO PT. RXS GIVEN. STATES UNDERSTANDING OF ALL INSTRUCTIONS AND NEED TO F/U SCHEDULED AND NEEDED.
[2020-06-26 10:40] VITALS: BP 136/77
--- NOTE | 2020-06-26 10:40 | NUR ---
DISMISSED FROM [facility] VIA W/C TO AWAITING FAMILY CAR IN STABLE CONDITION ACC BY DOMINGUEZ RICE.
== END 2020-06-26 10:40 | disposition home or self-care (01) ==
LOC: SDC 07:25 → WS 11:55 → SDC 06-26 10:40
PROVIDERS: ATTEND Obstetrics & Gynecology
DX: D25.0 Submucous leiomyoma of uterus (principal); N83.8 Other noninflammatory disorders of ovary, fallopian tube and broad ligament; I10 Essential (primary) hypertension; G43.909 Migraine, unspecified, not intractable, without status migrainosus; E03.9 Hypothyroidism, unspecified; M19.90 Unspecified osteoarthritis, unspecified site; D62 Acute posthemorrhagic anemia; D50.9 Iron deficiency anemia, unspecified; K63.5 Polyp of colon; F17.210 Nicotine dependence, cigarettes, uncomplicated; E66.01 Morbid (severe) obesity due to excess calories; Z68.42 Body mass index [BMI] 45.0-49.9, adult; Z79.82 Long term (current) use of aspirin; Z79.899 Other long term (current) drug therapy
CPT/HCPCS: 36415; 84703; 85025; 86850; 86870; 86900; 86901; 86902; 87081; 88307; 94664

== ENCOUNTER 2020-07-17 13:06 | Outpatient (RCR) | payer OTHER ==
[2020-05-30 15:05] LABS: BASOPHILS # (AUTO) 0.1 10^3/uL (0.0-0.1); BASOPHILS % (AUTO) 2 % (0-10); EOSINOPHILS # (AUTO) 0.1 10^3/uL (0.0-0.3); EOSINOPHILS % (AUTO) 2 % (0-10); HEMATOCRIT 30 % (35-52); HEMOGLOBIN 8.5 g/dL (11.5-16.0); LYMPHOCYTES # (AUTO) 0.9 10^3/uL (1.0-4.0); LYMPHOCYTES % (AUTO) 17 % (12-44); MEAN CORPUSCULAR HEMOGLOBIN 23 pg (25-34); MEAN CORPUSCULAR HGB CONC 28 g/dL (32-36); MEAN CORPUSCULAR VOLUME 83 fL (80-99); MEAN PLATELET VOLUME 10.8 fL (9.0-12.2); MONOCYTES # (AUTO) 0.6 10^3/uL (0.0-1.0); MONOCYTES % (AUTO) 11 % (0-12); NEUTROPHILS # (AUTO) 3.5 10^3/uL (1.8-7.8); NEUTROPHILS % (AUTO) 66 % (42-75); PLATELET COUNT 364 10^3/uL (130-400); WHITE BLOOD COUNT 5.4 10^3/uL (4.3-11.0)
[~2020-07-17 13:06] MED LIST changes: +AMLO-250 PO; +AMLO-251 PO; -AMLO10TA7 PO; -AMLO5TAB9 PO; +DCS100C PO; +FERRIC CARBOXYMALTOSE (CANCER) 750 MG in NS (IVPB) CANCER CENTER 250 ML IV SCH; +IBUP-844 PO; +OXYC1TAB87 PO; +SIME80TA16 PO; +diphenhydrAMINE 50 MG/ML INJ (CANCER CENTER) ONE
[2020-07-17 13:38] LABS: BASOPHILS # (AUTO) 0.1 10^3/uL (0.0-0.1); BASOPHILS % (AUTO) 1 % (0-10); EOSINOPHILS # (AUTO) 0.2 10^3/uL (0.0-0.3); EOSINOPHILS % (AUTO) 4 % (0-10); HEMATOCRIT 36 % (35-52); HEMOGLOBIN 11.4 g/dL (11.5-16.0); LYMPHOCYTES % (AUTO) 18 % (12-44); MEAN CORPUSCULAR HEMOGLOBIN 29 pg (25-34); MEAN CORPUSCULAR HGB CONC 32 g/dL (32-36); MEAN CORPUSCULAR VOLUME 92 fL (80-99); MEAN PLATELET VOLUME 10.1 fL (9.0-12.2); MONOCYTES # (AUTO) 0.6 10^3/uL (0.0-1.0); MONOCYTES % (AUTO) 11 % (0-12); NEUTROPHILS # (AUTO) 3.6 10^3/uL (1.8-7.8); NEUTROPHILS % (AUTO) 65 % (42-75); PLATELET COUNT 352 10^3/uL (130-400); WHITE BLOOD COUNT 5.5 10^3/uL (4.3-11.0)
[2020-07-17 13:57] LABS: ALANINE AMINOTRANSFERASE 18 U/L (0-55); ALBUMIN 4.2 GM/DL (3.2-4.5); ALKALINE PHOSPHATASE 72 U/L (40-136); BILIRUBIN,TOTAL 0.2 MG/DL (0.1-1.0); BUN/CREATININE RATIO 18; CALCIUM 9.7 MG/DL (8.5-10.1); CARBON DIOXIDE 23 MMOL/L (21-32); CHLORIDE 104 MMOL/L (98-107); CREATININE SERUM 0.85 MG/DL (0.60-1.30); GFR ESTIMATED > 60; GLUCOSE 153 MG/DL (70-105); POTASSIUM 4.1 MMOL/L (3.6-5.0); SODIUM 136 MMOL/L (135-145); TOTAL PROTEIN 7.2 GM/DL (6.4-8.2)
== END 2020-08-20 | disposition home or self-care (01) ==
LOC: ONC 13:06
PROVIDERS: ATTEND Internal Medicine Hematology & Oncology
DX: D50.8 Other iron deficiency anemias (principal); N92.0 Excessive and frequent menstruation with regular cycle
CPT/HCPCS: 36415; 80053; 82728; 85025; 96365; 96374; 99213

== ENCOUNTER → 2020-09-21 | Outpatient (CLI) | payer OTHER ==
[~2020-09-21] MED LIST changes: +CATHETER FLUSH 10 ML SYR IV PRN; -FERRIC CARBOXYMALTOSE (CANCER) 750 MG in NS (IVPB) CANCER CENTER 250 ML IV SCH; +HOLD METFORMIN - RECEIVED CONTRAST 20 ML VIAL IV SCH; +IOHEXOL 350 MG/ML 100 ML (OMNIPAQUE 350) VIAL IV ONE; +NS 100 ML (IVPB) BAG IV ONE; -diphenhydrAMINE 50 MG/ML INJ (CANCER CENTER) ONE
--- NOTE | 2020-09-21 09:08 | Diagnostic Imaging Report ---
PROCEDURE: CT head with and without contrast. TECHNIQUE: Multiple contiguous axial images were obtained through the brain before and after the administration of intravenous contrast. Auto Exposure Controls were utilized during the CT exam to meet ALARA standards for radiation dose reduction. INDICATION: Frequent headaches. COMPARISON: 01/26/2017 FINDINGS: No intracranial hemorrhage. No intracranial mass, mass effect, midline shift, herniation, hydrocephalus, or extra-axial fluid collection. No CT evidence of an acute ischemic infarction. No enhancing mass lesion. The sella is minimally enlarged, appearing predominantly fluid-filled. The orbits are unremarkable. Partial opacification of some left mastoid air cells. Otherwise, the paranasal sinuses are clear. The calvarium and extra calvarial soft tissues are unremarkable. IMPRESSION: Partially empty sella is present, which can be associated with empty sella syndrome. Partial opacification of the left mastoid sinus. Dictated by: Dictated on workstation # [id number]
== END ==
LOC: RAD 07:45
PROVIDERS: ATTEND Nurse Practitioner Community Health
DX: H74.8X2 Other specified disorders of left middle ear and mastoid (principal); E23.6 Other disorders of pituitary gland
CPT/HCPCS: 70470

== ENCOUNTER 2021-06-05 00:43 | Inpatient (IN) | payer SELFPAY ==
[~2021-06-05] VITALS: Ht 175.3 cm; Wt 137.5 kg
[~2021-06-05 00:43] MED LIST changes: -CATHETER FLUSH 10 ML SYR IV PRN; -DCS100C PO; +DOCU-239 PO; -HOLD METFORMIN - RECEIVED CONTRAST 20 ML VIAL IV SCH; -IOHEXOL 350 MG/ML 100 ML (OMNIPAQUE 350) VIAL IV ONE; -NS 100 ML (IVPB) BAG IV ONE; -PHEN37.53 PO; +PHEN37.58 PO
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
[2021-06-05] MEDS ORDERED: NS IV 1000 ML 1,000 ML IV SCH ×3 (01:00→08:00)
[2021-06-05 01:36] LABS: BASOPHILS # (AUTO) 0.1 10^3/uL (0.0-0.1); BASOPHILS % (AUTO) 0 % (0-10); EOSINOPHILS % (AUTO) 0 % (0-10); HEMATOCRIT 40 % (35-52); HEMOGLOBIN 13.4 g/dL (11.5-16.0); LYMPHOCYTES # (AUTO) 0.5 10^3/uL (1.0-4.0); LYMPHOCYTES % (AUTO) 4 % (12-44); MEAN CORPUSCULAR HEMOGLOBIN 30 pg (25-34); MEAN CORPUSCULAR HGB CONC 33 g/dL (32-36); MEAN CORPUSCULAR VOLUME 90 fL (80-99); MEAN PLATELET VOLUME 11.4 fL (9.0-12.2); MONOCYTES # (AUTO) 0.5 10^3/uL (0.0-1.0); MONOCYTES % (AUTO) 4 % (0-12); NEUTROPHILS # (AUTO) 11.2 10^3/uL (1.8-7.8); NEUTROPHILS % (AUTO) 91 % (42-75); PLATELET COUNT 339 10^3/uL (130-400); WHITE BLOOD COUNT 12.4 10^3/uL (4.3-11.0)
[2021-06-05 01:47] LABS: ALBUMIN 4.3 GM/DL (3.2-4.5); CHLORIDE 100 MMOL/L (98-107); POTASSIUM 3.7 MMOL/L (3.6-5.0); SODIUM 136 MMOL/L (135-145)
[2021-06-05 01:48] LABS: INR 1.1 (0.8-1.4); PROTHROMBIN TIME PATIENT 14.2 SEC (12.2-14.7)
[2021-06-05 01:49] LABS: CALCIUM 9.7 MG/DL (8.5-10.1)
[2021-06-05 01:50] LABS: GLUCOSE 162 MG/DL (70-105); TOTAL PROTEIN 7.4 GM/DL (6.4-8.2)
[2021-06-05 01:50] LABS: BILIRUBIN,URINE 2+ (NEGATIVE); CLARITY,URINE SL CLOUDY; COLOR,URINE ORANGE; GLUCOSE, URINE (UA) NEGATIVE (NEGATIVE); KETONES,URINE 1+ (NEGATIVE); LEUKOCYTE ESTERASE ,URINE 1+ (NEGATIVE); NITRITE,URINE NEGATIVE (NEGATIVE); PH,URINE 5.5 (5-9); PROTEIN,URINE 1+ (NEGATIVE)
[2021-06-05 01:51] LABS: CARBON DIOXIDE 20 MMOL/L (21-32)
[2021-06-05 01:52] LABS: BILIRUBIN,TOTAL 0.6 MG/DL (0.1-1.0)
[2021-06-05 01:54] LABS: ALKALINE PHOSPHATASE 98 U/L (40-136); CREATININE SERUM 1.73 MG/DL (0.60-1.30); GFR ESTIMATED 32
[2021-06-05 01:55] LABS: BUN/CREATININE RATIO 8
[2021-06-05 01:56] LABS: SALICYLATE < 5.0 MG/DL (5.0-20.0)
[2021-06-05 01:57] LABS: ALANINE AMINOTRANSFERASE 19 U/L (0-55)
[2021-06-05 01:58] LABS: BACTERIA,URINE FEW /HPF
[2021-06-05 01:59] LABS: AMORPHOUS SEDIMENT,UR FEW AMOR URATES /LPF
[2021-06-05 01:59] LABS: LYMPHOCYTES % (MANUAL) 10 %; MONOCYTES % (MANUAL) 4 %; NEUTROPHILS % (MANUAL) 86 %; RBC MORPH NORMAL
[2021-06-05 02:03] LABS: AMPHETAMINE SCREEN, URINE POSITIVE (NEGATIVE); BARBITURATE SCREEN URINE NEGATIVE (NEGATIVE); BENZODIAZEPINES SCREEN URINE NEGATIVE (NEGATIVE); CANNABINOID SCREEN, URINE POSITIVE (NEGATIVE); COCAINE SCREEN URINE NEGATIVE (NEGATIVE); METHADONE STAT NEGATIVE (NEGATIVE); METHAMPHETAMINE SCREEN URINE S NEGATIVE (NEGATIVE); OPIATE SCREEN URINE NEGATIVE (NEGATIVE); OXYCODONE STAT NEGATIVE (NEGATIVE); PROPOXYPHENE STAT NEGATIVE (NEGATIVE); TRICYCLIC ANTIDEPRESSANTS SCRE POSITIVE (NEGATIVE)
[2021-06-05 02:04] LABS: ACETAMINOPHEN < 10 UG/ML (10-30)
[2021-06-05 02:17] LABS: FREE T4 (FREE THYROXINE) 0.73 NG/DL (0.70-1.48)
[2021-06-05] MEDS ORDERED: SODIUM BICARB 8.4% 50 MEQ/50 ML (ABBOTT) SYR ONE (02:27)
[2021-06-05] MEDS ORDERED: SODIUM BICARB 8.4% 50 MEQ/50 ML VIAL IV ONE ×2 (02:30)
[2021-06-05 03:28] VITALS: BP 97/67
[2021-06-05] MEDS ORDERED: RT-ALBUTEROL SULF 2.5 MG/3 ML PRE-MIX VIAL INH PRN (03:30)
[2021-06-05] MEDS: NS IV 1000 ML 1,000 ML IV SCH ×3 (04:31→15:28)
[2021-06-05] MEDS: LEVOTHYROXINE 100 MCG INJ (SYNTHROID) VIAL IV SCH (05:23)
--- NOTE | 2021-06-05 06:44 | Diagnostic Imaging Report ---
INDICATION: Overdose. Unresponsive. Comparison with 05/14/2020. FINDINGS: Portable chest. The heart is not enlarged. Lungs are well aerated. There are no infiltrates. No pneumothorax or pleural effusion. No bony abnormalities. IMPRESSION: No acute abnormalities demonstrated. Dictated by: Dictated on workstation # [id number]
[2021-06-05 07:08] LABS: BASOPHILS # (AUTO) 0.1 10^3/uL (0.0-0.1); BASOPHILS % (AUTO) 0 % (0-10); EOSINOPHILS % (AUTO) 0 % (0-10); HEMATOCRIT 39 % (35-52); HEMOGLOBIN 12.5 g/dL (11.5-16.0); LYMPHOCYTES # (AUTO) 0.5 10^3/uL (1.0-4.0); LYMPHOCYTES % (AUTO) 2 % (12-44); MEAN CORPUSCULAR HEMOGLOBIN 30 pg (25-34); MEAN CORPUSCULAR HGB CONC 32 g/dL (32-36); MEAN CORPUSCULAR VOLUME 93 fL (80-99); MEAN PLATELET VOLUME 11.8 fL (9.0-12.2); MONOCYTES % (AUTO) 4 % (0-12); NEUTROPHILS # (AUTO) 20.5 10^3/uL (1.8-7.8); NEUTROPHILS % (AUTO) 93 % (42-75); PLATELET COUNT 288 10^3/uL (130-400); WHITE BLOOD COUNT 22.2 10^3/uL (4.3-11.0)
--- NOTE | 2021-06-05 07:13 | Tele-ICU Progress Note ---
Progress Note Late note, seen at 0430: 41F HTN, hypothyroid, anemia admitted for overdose. Last seen well around 1500. Found around midnight by significant other, unresponsive. No known home rx, no evidence empty bottles at the house. Patient alleged to have made suicidal statements earlier. Has been somnolent. In ER reported to groan with sternal ru bbing. Now groaning spontaneously, becomes agitated and combative with sternal rub. Urine tox positive for THC, amphetamine and TCAs. EKG with widened QRS at 118 and low BP in 90s (150s-170s on prior admits) - hyptension: suspect due to TCA overdose. 3rd liter NS bolus being given now with BP improving from 90 to 115/68. Will monitor. May need pressor support. - AMS: likely overdose, TCA the likely culprit given no prescription and urine positive. Continue supportive care, tele monitoring. - hypothyroid: ER did give appropriate consideration to myxedema coma given med noncompliance, low T4 and high T3. Patient is not hyponatremic, hypothermic and had a very abrupt onset. However, it may be responsible for her progressive depression February and may be a contributing factor. Patient has been noncompliant with meds, will start IV synthroid until mentation improves. Focused Exam Lactate Level 06/05/21 01:31: Lactic Acid Level 3.60*H 06/05/21 04:12: Lactic Acid Level 2.67*H 06/05/21 06:50: Height, Weight, BMI Height: 5'2.00" Weight: 272lbs. 0.0oz. 123.671013cx; 41.55 BMI Method:Stated Lactic Acid Level Laboratory Tests Test 06/05/21 04:12 06/05/21 06:50 Lactic Acid Level 2.67 MMOL/L (0.50-2.00) *H ANTONIO ODONNELL MD Jun 05, 2021 07:13
[2021-06-05 07:22] LABS: ALBUMIN 3.6 GM/DL (3.2-4.5); POTASSIUM 3.7 MMOL/L (3.6-5.0)
[2021-06-05 07:24] LABS: CALCIUM 8.6 MG/DL (8.5-10.1)
[2021-06-05 07:25] LABS: TOTAL PROTEIN 6.3 GM/DL (6.4-8.2)
[2021-06-05 07:27] LABS: BILIRUBIN,TOTAL 0.6 MG/DL (0.1-1.0)
[2021-06-05 07:28] LABS: PHOSPHORUS 3.8 MG/DL (2.3-4.7)
[2021-06-05 07:29] LABS: CREATININE SERUM 1.8 MG/DL (0.60-1.30)
[2021-06-05 07:31] LABS: MAGNESIUM 2.1 MG/DL (1.6-2.4)
--- NOTE | 2021-06-05 08:06 | Tele-ICU Progress Note ---
Subjective Date Seen by a Provider: Jun 05, 2021 Time Seen by a Provider: 11:43 Subjective/Events-last exam 41 yo F admiitted for probable suicide attempt TCA, given IV NaHCO3, remains unresponsive except to sternal rub, QRS was side but now looks better on monitor also THC methamphetamines SpO2 has been in mid 80's, will increase oxygen delivery, SpO2 now 90% BP has been borderline 83/49, lactate is going up form 3 to 2.6 to 8.34, WBC 22k, LFT's are normal AG 14 HCO3 same at 20, Hb stable at 12.5 CXR looks ok, COVID PCR neg, cultures pending Also Hx of hypothyroidism, TSH was 26, T4 normal, given one dose IV thyroxine At this point mental status is slowly improving, does have a cough/gag, LA has come down to 2.52 Sepsis Event Evaluation Height, Weight, BMI Height: 5'2.00" Weight: 272lbs. 0.0oz. 123.936644iv; 41.55 BMI Method:Stated Focused Exam Lactate Level 06/05/21 01:31: Lactic Acid Level 3.60*H 06/05/21 04:12: Lactic Acid Level 2.67*H 06/05/21 06:50: Lactic Acid Level 8.34*H Lactic Acid Level Laboratory Tests Test 06/05/21 04:12 06/05/21 06:50 Lactic Acid Level 2.67 MMOL/L (0.50-2.00) *H 8.34 MMOL/L (0.50-2.00) *H Exam Exam Patient acknowledged, consented, and participated in this virtual visit which was conducted using real time audio/video Vital Signs Date Time Temp Pulse Resp B/P (MAP) Pulse Ox O2 Delivery O2 Flow Rate FiO2 06/05/21 06:30 96 21 102/49 96 Nasal Cannula 2.00 06/05/21 05:46 06/05/21 05:00 94 17 102/63 97 Nasal Cannula 2.00 06/05/21 04:30 104 27 115/68 90 Nasal Cannula 2.00 06/05/21 04:00 93 Nasal Cannula 2.00 06/05/21 03:45 98 16 80/54 93 Nasal Cannula 2.00 06/05/21 03:39 92 Nasal Cannula 2.00 06/05/21 03:30 35.9 107 15 113/97 96 Nasal Cannula 2.00 06/05/21 03:30 100 15 85/51 91 Nasal Cannula 2.00 06/05/21 03:28 36.5 101 92 21 06/05/21 03:21 108 06/05/21 03:20 107 18 113/97 93 Nasal Cannula 2.00 06/05/21 03:09 36.5 101 18 113/49 98 Nasal Cannula 2.00 2.00 06/05/21 02:00 36.5 92 15 93/60 97 Nasal Cannula 2.00 06/05/21 00:44 36.5 100 22 97/67 (77) 97 Nasal Cannula 2.00 I & O 06/05/21 07:00 Intake Total 2000 ml Output Total 50 ml Balance 1950 ml Height & Weight Height: 5'2.00" Weight: 272lbs. 0.0oz. 123.177119bd; 41.55 BMI Method:Stated General Appearance: Other (lethargic, does respond to steranl rub and is becoming more responsive) Respiratory: Lungs Clear Cardiovascular: Tachycardia Capillary Refill: Less Than 3 Seconds Gastrointestinal: normal bowel sounds, non tender, soft Extremity: No Pedal Edema Neurologic/Psychiatric: Other (no muscle rigidity, no response to Babinski) Results Lab Laboratory Tests 06/05/21 01:31 06/05/21 06:50 Assessment/Plan Assessment/Plan AMS probably due to TCA OD but would consider other causes such as sepsis has gotten IVF, Na HCO3 WBC 22k, would start empiric abx IV vanco/zosyn for possible aspiration keep HOB up will get ABG to see if CO2 elevated and check for met acidosis due to increased lactate ABG 7.42/37/53 will give IVF saline bolus-at 1000 BP is better, 120/73 when more awake psych to see, sitter thyroid replacement-I do not think this is myxedema coma Critical Care: Critically Ill Patient Time spent with patient (mins): 30 GEENA KHAN MD Jun 05, 2021 08:06
[2021-06-05 08:12] LABS: BAND NEUTROPHILS 5 %; BASOPHILS % (MANUAL) 0 %; EOSINOPHILS % (MANUAL) 0 %; LYMPHOCYTES % (MANUAL) 2 %; MONOCYTES % (MANUAL) 4 %; NEUTROPHILS % (MANUAL) 89 %
[2021-06-05 08:13] LABS: RBC MORPH NORMAL
[2021-06-05 08:19] LABS: ABG BASE EXCESS -0.5 MMOL/L (-2.5-2.5); ABG OXYGEN SATURATION 88 % (94-100); ABG PCO2 37 MMHG (35-45); ABG PH 7.42 (7.37-7.43); ABG PO2 53 MMHG (79-93); ABG TCO2 24.9 MMOL/L (21.0-31.0)
[2021-06-05 08:20] LABS: ALLENS TEST YES-POS; INSPIRED O2 15L; PATIENT TEMP 35.7; VENTILATOR NO
[2021-06-05] MEDS: POTASSIUM CL 10MEQ/50ML IVPB 50 ML IV SCH (08:24)
[2021-06-05] MEDS: KCL 20 MEQ TAB (K-DUR) PO SCH (08:24)
[2021-06-05] MEDS: MAGNESIUM 1 GM/100 ML IVPB 100 ML IV SCH (08:24)
[2021-06-05] MEDS ORDERED: PIPERACILLIN/TAZO 4.5 GM/NS 100 ML IV NR ×2 (10:00)
[2021-06-05] MEDS ORDERED: ENOXAPARIN 40 MG/0.4 ML (LOVENOX) SYR SC SCH (12:00)
[2021-06-05 13:47] LABS: POTASSIUM 3.8 MMOL/L (3.6-5.0)
[2021-06-05 13:49] LABS: CALCIUM 8.8 MG/DL (8.5-10.1)
[2021-06-05 13:53] LABS: CREATININE SERUM 1.67 MG/DL (0.60-1.30)
[2021-06-05] MEDS: PIPERACILLIN/TAZOBACTAM (BULK) 4.5 GM in NS (IVPB) 100 ML IV SCH (15:26)
--- NOTE | 2021-06-05 17:31 | History & Physical ---
HPI History of Present Illness: 41 yo F that was found by partner unresponsive. Partner states that she was threatening taking pills earlier in the day. Currently in ICU on Non rebreather. Moans to sternal rub but does not open eyes. Source: RN/MD, other (Daughter) Exam Limitations: clinical condition Date seen by provider: Jun 05, 2021 Time Seen by Provider: 08:25 Attending Physician Malorie Cantu MD [facility] [place] [facility] Consult Date of Admission Jun 05, 2021 at 02:21 Home Medications Home Medications Reviewed patient Home Medication Reconciliation performed by pharmacy medication reconciliations energy technician and/or nursing. Patients Allergies have been reviewed. Allergies Coded Allergies: No Known Drug Allergies (Unverified , 06/25/20) PDC-Eszjtp-[id number] Hx Patient Social History Smoking Status: Unknown if Ever Smoked 2nd Hand Smoke Exposure: Yes Recent Hopitalizations: Yes (APRIL 2020-ANEMIA) Alcohol Use?: Unable to obtain Have you traveled recently?: Unable to obtain Immunizations Up To Date Tetanus Booster (TDap): Unknown Date of Pneumonia Vaccine: Apr 06, 2012 Past Medical History HTN Hypothyroidism Family Medical History Significant Family History: Heart Disease, Diabetes, Hypertension Other Significan Family Hx: Father: colon Paternal grandmother: breast cancer Materanl aunt: leukemia & lupus Family History: Cardiovascular disease 19 FATHER 19 MOTHER Congenital heart disease 19 MOTHER Hypertension 19 MOTHER Myocardial infarction 19 MOTHER Review of Systems ([facility]) Constitutional: other Other Unable to complete due to altered mental status Reviewed Test Results Reviewed Test Results Lab Laboratory Tests Test 06/05/21 01:31 06/05/21 01:41 06/05/21 02:10 06/05/21 02:18 Range/Units White Blood Count 12.4 H 4.3-11.0 10^3/uL Red Blood Count 4.46 3.80-5.11 10^6/uL Hemoglobin 13.4 11.5-16.0 g/dL Hematocrit 40 35-52 % Mean Corpuscular Volume 90 80-99 fL Mean Corpuscular Hemoglobin 30 25-34 pg Mean Corpuscular Hemoglobin Concent 33 32-36 g/dL Red Cell Distribution Width 14.1 10.0-14.5 % Platelet Count 339 130-400 10^3/uL Mean Platelet Volume 11.4 9.0-12.2 fL Immature Granulocyte % (Auto) 0 % Neutrophils (%) (Auto) 91 H 42-75 % Lymphocytes (%) (Auto) 4 L 12-44 % Monocytes (%) (Auto) 4 0-12 % Eosinophils (%) (Auto) 0 0-10 % Basophils (%) (Auto) 0 0-10 % Neutrophils # (Auto) 11.2 H 1.8-7.8 10^3/uL Lymphocytes # (Auto) 0.5 L 1.0-4.0 10^3/uL Monocytes # (Auto) 0.5 0.0-1.0 10^3/uL Eosinophils # (Auto) 0.0 0.0-0.3 10^3/uL Basophils # (Auto) 0.1 0.0-0.1 10^3/uL Immature Granulocyte # (Auto) 0.0 0.0-0.1 10^3/uL Neutrophils % (Manual) 86 % Lymphocytes % (Manual) 10 % Monocytes % (Manual) 4 % Blood Morphology Comment NORMAL Prothrombin Time 14.2 12.2-14.7 SEC INR Comment 1.1 0.8-1.4 Activated Partial Thromboplast Time 33 24-35 SEC Sodium Level 136 135-145 MMOL/L Potassium Level 3.7 3.6-5.0 MMOL/L Chloride Level 100 98-107 MMOL/L Carbon Dioxide Level 20 L 21-32 MMOL/L Anion Gap 16 H 5-14 MMOL/L Blood Urea Nitrogen 13 7-18 MG/DL Creatinine 1.73 H 0.60-1.30 MG/DL Estimat Glomerular Filtration Rate 32 BUN/Creatinine Ratio 8 Glucose Level 162 H 70-105 MG/DL Lactic Acid Level 3.60 *H 0.50-2.00 MMOL/L Calcium Level 9.7 8.5-10.1 MG/DL Corrected Calcium 9.5 8.5-10.1 MG/DL Total Bilirubin 0.6 0.1-1.0 MG/DL Aspartate Amino Transf (AST/SGOT) 15 5-34 U/L Alanine Aminotransferase (ALT/SGPT) 19 0-55 U/L Alkaline Phosphatase 98 40-136 U/L Total Protein 7.4 6.4-8.2 GM/DL Albumin 4.3 3.2-4.5 GM/DL Thyroid Stimulating Hormone (TSH) 26.37 H 0.35-4.94 UIU/ML Free Thyroxine 0.73 0.70-1.48 NG/DL Salicylates Level < 5.0 L 5.0-20.0 MG/DL Acetaminophen Level < 10 L 10-30 UG/ML Serum Alcohol < 10 <10 MG/DL Urine Color ORANGE Urine Clarity SL CLOUDY Urine pH 5.5 5-9 Urine Specific [place] 1.025 H 1.016-1.022 Urine Protein 1+ H NEGATIVE Urine Glucose (UA) NEGATIVE NEGATIVE Urine Ketones 1+ H NEGATIVE Urine Nitrite NEGATIVE NEGATIVE Urine Bilirubin 2+ H NEGATIVE Urine Urobilinogen 0.2 < = 1.0 MG/DL Urine Leukocyte Esterase 1+ H NEGATIVE Urine RBC (Auto) NEGATIVE NEGATIVE Urine RBC NONE /HPF Urine WBC 5-10 H /HPF Urine Renal Epithelial Cells 2-5 /HPF Urine Crystals PRESENT H /LPF Urine Amorphous Sediment FEW KHARI URATES H /LPF Urine Bacteria FEW H /HPF Urine Casts PRESENT /LPF Urine Hyaline Casts 2-5 H /LPF Urine Mucus NEGATIVE /LPF Urine Culture Indicated YES Urine Opiates Screen NEGATIVE NEGATIVE Urine Oxycodone Screen NEGATIVE NEGATIVE Urine Methadone Screen NEGATIVE NEGATIVE Urine Propoxyphene Screen NEGATIVE NEGATIVE Urine Barbiturates Screen NEGATIVE NEGATIVE Ur Tricyclic Antidepressants Screen POSITIVE H NEGATIVE Urine Phencyclidine Screen NEGATIVE NEGATIVE Urine Amphetamines Screen POSITIVE H NEGATIVE Urine Methamphetamines Screen NEGATIVE NEGATIVE Urine Benzodiazepines Screen NEGATIVE NEGATIVE Urine Cocaine Screen NEGATIVE NEGATIVE Urine Cannabinoids Screen POSITIVE H NEGATIVE SARS-CoV-2 RNA (RT-PCR) Not Detected Not Detecte Glucometer 170 H 70-110 MG/DL Test 06/05/21 04:12 06/05/21 06:50 06/05/21 08:13 06/05/21 09:03 Range/Units Lactic Acid Level 2.67 *H 8.34 *H 2.52 *H 0.50-2.00 MMOL/L White Blood Count 22.2 H 4.3-11.0 10^3/uL Red Blood Count 4.20 3.80-5.11 10^6/uL Hemoglobin 12.5 11.5-16.0 g/dL Hematocrit 39 35-52 % Mean Corpuscular Volume 93 80-99 fL Mean Corpuscular Hemoglobin 30 25-34 pg Mean Corpuscular Hemoglobin Concent 32 32-36 g/dL Red Cell Distribution Width 14.3 10.0-14.5 % Platelet Count 288 130-400 10^3/uL Mean Platelet Volume 11.8 9.0-12.2 fL Immature Granulocyte % (Auto) 1 % Neutrophils (%) (Auto) 93 H 42-75 % Lymphocytes (%) (Auto) 2 L 12-44 % Monocytes (%) (Auto) 4 0-12 % Eosinophils (%) (Auto) 0 0-10 % Basophils (%) (Auto) 0 0-10 % Neutrophils # (Auto) 20.5 H 1.8-7.8 10^3/uL Lymphocytes # (Auto) 0.5 L 1.0-4.0 10^3/uL Monocytes # (Auto) 1.0 0.0-1.0 10^3/uL Eosinophils # (Auto) 0.0 0.0-0.3 10^3/uL Basophils # (Auto) 0.1 0.0-0.1 10^3/uL Immature Granulocyte # (Auto) 0.1 0.0-0.1 10^3/uL Neutrophils % (Manual) 89 % Lymphocytes % (Manual) 2 % Monocytes % (Manual) 4 % Eosinophils % (Manual) 0 % Basophils % (Manual) 0 % Band Neutrophils 5 % Blood Morphology Comment NORMAL Sodium Level 138 135-145 MMOL/L Potassium Level 3.7 3.6-5.0 MMOL/L Chloride Level 104 98-107 MMOL/L Carbon Dioxide Level 20 L 21-32 MMOL/L Anion Gap 14 5-14 MMOL/L Blood Urea Nitrogen 15 7-18 MG/DL Creatinine 1.80 H 0.60-1.30 MG/DL Estimat Glomerular Filtration Rate 31 BUN/Creatinine Ratio 8 Glucose Level 146 H 70-105 MG/DL Calcium Level 8.6 8.5-10.1 MG/DL Corrected Calcium 8.9 8.5-10.1 MG/DL Phosphorus Level 3.8 2.3-4.7 MG/DL Magnesium Level 2.1 1.6-2.4 MG/DL Total Bilirubin 0.6 0.1-1.0 MG/DL Aspartate Amino Transf (AST/SGOT) 13 5-34 U/L Alanine Aminotransferase (ALT/SGPT) 16 0-55 U/L Alkaline Phosphatase 82 40-136 U/L Total Protein 6.3 L 6.4-8.2 GM/DL Albumin 3.6 3.2-4.5 GM/DL Blood Gas Puncture Site R RAD Blood Gas Patient Temperature 35.7 Arterial Blood pH 7.42 7.37-7.43 Arterial Blood Partial Pressure CO2 37 35-45 MMHG Arterial Blood Partial Pressure O2 53 L 79-93 MMHG Arterial Blood HCO3 24 23-27 MMOL/L Arterial Blood Total CO2 24.9 21.0-31.0 MMOL/L Arterial Blood Oxygen Saturation 88 L 94-100 % Arterial Blood Base Excess -0.5 -2.5-2.5 MMOL/L Kulwant Test YES-POS Blood Gas Ventilator Setting NO Blood Gas Inspired Oxygen 15L Test 06/05/21 11:15 06/05/21 13:20 06/05/21 16:25 Range/Units Lactic Acid Level 2.33 *H 2.42 *H 1.85 0.50-2.00 MMOL/L Procalcitonin 0.03 <0.10 NG/ML Sodium Level 139 135-145 MMOL/L Potassium Level 3.8 3.6-5.0 MMOL/L Chloride Level 106 98-107 MMOL/L Carbon Dioxide Level 20 L 21-32 MMOL/L Anion Gap 13 5-14 MMOL/L Blood Urea Nitrogen 17 7-18 MG/DL Creatinine 1.67 H 0.60-1.30 MG/DL Estimat Glomerular Filtration Rate 34 BUN/Creatinine Ratio 10 Glucose Level 137 H 70-105 MG/DL Calcium Level 8.8 8.5-10.1 MG/DL Physical Exam-(CH[facility]) Physical Exam Vital Signs VS - Last 72 Hours, by Label 06/05/21 06/05/21 06/05/21 06/05/21 00:44 02:00 03:09 03:20 Temp 36.5 36.5 36.5 Pulse 100 92 101 107 Resp 22 15 18 18 B/P (MAP) 97/67 (77) 93/60 113/49 113/97 Pulse Ox 97 97 98 93 O2 Delivery Nasal Cannula Nasal Cannula Nasal Cannula Nasal Cannula O2 Flow Rate 2.00 2.00 2.00 2.00 2.00 06/05/21 06/05/21 06/05/21 06/05/21 03:21 03:28 03:30 03:30 Temp 36.5 35.9 Pulse 108 101 100 107 Resp 15 15 B/P (MAP) 85/51 113/97 Pulse Ox 92 91 96 O2 Delivery Nasal Cannula Nasal Cannula O2 Flow Rate 2.00 2.00 FiO2 21 06/05/21 06/05/21 06/05/21 06/05/21 03:39 03:45 04:00 04:30 Pulse 98 104 Resp 16 27 B/P (MAP) 80/54 115/68 Pulse Ox 92 93 93 90 O2 Delivery Nasal Cannula Nasal Cannula Nasal Cannula Nasal Cannula O2 Flow Rate 2.00 2.00 2.00 2.00 06/05/21 06/05/21 06/05/21 06/05/21 05:00 05:46 06:30 06:41 Pulse 94 96 95 Resp 17 21 B/P (MAP) 102/63 102/49 Pulse Ox 97 96 O2 Delivery Nasal Cannula Nasal Cannula O2 Flow Rate 2.00 2.00 06/05/21 06/05/21 06/05/21 06/05/21 07:00 07:59 08:00 08:00 Pulse 101 102 Resp 19 21 B/P (MAP) 85/51 83/47 Pulse Ox 93 87 93 O2 Delivery Nasal Cannula OxyMask OxyMask OxyMask O2 Flow Rate 2.00 15.00 15.00 15.00 06/05/21 06/05/21 06/05/21 06/05/21 08:06 09:00 10:00 10:14 Temp 35.4 Pulse 101 104 Resp 20 25 B/P (MAP) 92/60 Pulse Ox 94 95 O2 Delivery OxyMask OxyMask OxyMask O2 Flow Rate 15.00 15.00 15.00 FiO2 92 06/05/21 06/05/21 06/05/21 06/05/21 11:00 12:00 12:00 12:02 Temp 35.7 Pulse 104 105 Resp 15 26 B/P (MAP) 132/72 113/66 Pulse Ox 94 93 93 O2 Delivery OxyMask OxyMask OxyMask O2 Flow Rate 15.00 15.00 15.00 06/05/21 06/05/21 06/05/21 06/05/21 12:46 13:00 14:00 15:00 Pulse 106 105 108 107 Resp 29 15 19 B/P (MAP) 116/62 89/63 108/45 Pulse Ox 93 93 92 O2 Delivery OxyMask OxyMask OxyMask O2 Flow Rate 15.00 15.00 15.00 06/05/21 15:40 Pulse Ox 92 O2 Delivery OxyMask O2 Flow Rate 10.00 Capillary Refill : Less Than 3 Seconds General Appearance: other (Unresponsive) Respiratory: crackles, wheezing Cardiovascular: normal peripheral pulses, regular rate, rhythm, no murmur Gastrointestinal: soft; No rebound Extremities: no pedal edema, no calf tenderness, normal capillary refill Neurologic/Psychiatric: other (Unresponsive, moans with sternal rub) Skin: normal color, warm/dry Lymphatic: no adenopathy Assessment/Plan Assessment/Plan Admission Status: Inpatient Order (span 2 midnights) Reason for Inpatient Admission: Requiring ICU care (1) Altered mental status Status: Acute Assessment & Plan: - Likely 2/2 to intentional OD, TCA, ECG normal, s/p treatment with Na Bicarb, HDS and protecting airway at this time Qualifiers: Qualified Codes: R40.1 - Stupor (2) TCA (tricyclic antidepressant) overdose of undetermined intent Status: Acute Qualifiers: Qualified Codes: T43.014A - Poisoning by tricyclic antidepressants, undetermined, initial encounter (3) History of suicidal ideation Status: Acute Assessment & Plan: - Will need screened after mental status improves (4) Substance abuse Assessment & Plan: - + Meth/MJ (5) Hypothyroid Status: Chronic Assessment & Plan: - TSH 26, IV levothyroixine given Qualifiers: Qualified Codes: E03.9 - Hypothyroidism, unspecified (6) Hypertension Status: Chronic Assessment & Plan: - Holding home meds due to hypotension Qualifiers: Qualified Codes: I10 - Essential (primary) hypertension MALORIE CANTU MD Jun 05, 2021 17:31
[2021-06-05] MEDS: ENOXAPARIN 40 MG/0.4 ML (LOVENOX) SYR SC SCH (17:48)
[2021-06-06] MEDS: NS IV 1000 ML 1,000 ML IV SCH ×4 (00:08→15:52)
[2021-06-06] MEDS: PIPERACILLIN/TAZOBACTAM (BULK) 4.5 GM in NS (IVPB) 100 ML IV SCH ×3 (00:08→15:53)
[2021-06-06 03:13] LABS: BASOPHILS # (AUTO) 0.1 10^3/uL (0.0-0.1); BASOPHILS % (AUTO) 0 % (0-10); EOSINOPHILS % (AUTO) 0 % (0-10); HEMATOCRIT 33 % (35-52); HEMOGLOBIN 10.9 g/dL (11.5-16.0); LYMPHOCYTES # (AUTO) 0.7 10^3/uL (1.0-4.0); LYMPHOCYTES % (AUTO) 4 % (12-44); MEAN CORPUSCULAR HEMOGLOBIN 30 pg (25-34); MEAN CORPUSCULAR HGB CONC 33 g/dL (32-36); MEAN CORPUSCULAR VOLUME 93 fL (80-99); MEAN PLATELET VOLUME 11.8 fL (9.0-12.2); MONOCYTES # (AUTO) 1.2 10^3/uL (0.0-1.0); MONOCYTES % (AUTO) 6 % (0-12); NEUTROPHILS # (AUTO) 16.3 10^3/uL (1.8-7.8); NEUTROPHILS % (AUTO) 89 % (42-75); PLATELET COUNT 295 10^3/uL (130-400); WHITE BLOOD COUNT 18.2 10^3/uL (4.3-11.0)
[2021-06-06 03:21] LABS: ALBUMIN 3.2 GM/DL (3.2-4.5); POTASSIUM 3.4 MMOL/L (3.6-5.0)
[2021-06-06 03:22] LABS: CALCIUM 8.6 MG/DL (8.5-10.1)
[2021-06-06 03:24] LABS: TOTAL PROTEIN 5.7 GM/DL (6.4-8.2)
[2021-06-06 03:25] LABS: BILIRUBIN,TOTAL 0.9 MG/DL (0.1-1.0)
[2021-06-06 03:27] LABS: CREATININE SERUM 1.16 MG/DL (0.60-1.30); PHOSPHORUS 3.3 MG/DL (2.3-4.7)
[2021-06-06 03:30] LABS: MAGNESIUM 2.1 MG/DL (1.6-2.4)
[2021-06-06] MEDS: ENOXAPARIN 40 MG/0.4 ML (LOVENOX) SYR SC SCH ×2 (04:56→15:52)
[2021-06-06] MEDS: MAGNESIUM 1 GM/100 ML IVPB 100 ML IV SCH (06:11)
[2021-06-06] MEDS: POTASSIUM CL 10MEQ/50ML IVPB 50 ML IV SCH (06:11)
[2021-06-06] MEDS: KCL 20 MEQ TAB (K-DUR) PO SCH (06:12)
[2021-06-06] MEDS ORDERED: IBUP-2473 PO (09:24)
[2021-06-06] MEDS ORDERED: KCL 20 MEQ TAB (K-DUR) PO ONE (09:45)
[2021-06-06] MEDS ORDERED: THIAMINE 100 MG (VITAMIN B-1) TAB PO ONE (09:45)
--- NOTE | 2021-06-06 14:03 | Discharge Summary ---
Diagnosis/Chief Complaint Date of Admission Jun 05, 2021 at 02:21 Date of Discharge Discharge Diagnosis Problems/Diagnosis: (1) Altered mental status Assessment & Plan: - Likely 2/2 to intentional OD, TCA, ECG normal, s/p treatment with Na Bicarb, HDS and protecting airway at this time Qualifiers: Qualified Codes: R40.1 - Stupor Status: Acute (2) TCA (tricyclic antidepressant) overdose of undetermined intent Qualifiers: Qualified Codes: T43.014A - Poisoning by tricyclic antidepressants, undetermined, initial encounter Status: Acute (3) History of suicidal ideation Assessment & Plan: - Will need screened after mental status improves Status: Acute (4) Substance abuse Assessment & Plan: - + Meth/MJ (5) Hypothyroid Assessment & Plan: - TSH 26, IV levothyroixine given Qualifiers: Qualified Codes: E03.9 - Hypothyroidism, unspecified Status: Chronic (6) Hypertension Assessment & Plan: - Holding home meds due to hypotension Qualifiers: Qualified Codes: I10 - Essential (primary) hypertension Status: Chronic Chief Complaint/HPI Chief Complaint/HPI 41 yo F that was found by partner unresponsive. Partner states that she was threatening taking pills earlier in the day. Currently in ICU on Non rebreather. Moans to sternal rub but does not open eyes. Discharge Summary-Simple/Stand Consultations Discharge Physical Examination Allergies: Coded Allergies: No Known Drug Allergies (Unverified , 06/25/20) Vitals & I&Os Vital Sign - Last 12Hours Date Time Temp Pulse Resp B/P (MAP) Pulse Ox O2 Delivery O2 Flow Rate FiO2 06/06/21 12:00 110 26 106/75 89 OxyMask 7.00 06/06/21 12:00 36.2 06/06/21 07:06 Intake and Output 06/06/21 00:00 Intake Total 0 ml Output Total 450 ml Balance -450 ml Hospital Course See final discharge diagnosis. Discharge Instructions to patient/family Please see electronic discharge instructions given to patient. Discharge Medications Reviewed and agree with Discharge Medication list on patient's Discharge Instruction sheet JYOTSNA TEJADA MD Jun 06, 2021 14:03
[2021-06-06] MEDS ORDERED: LEVO50CA4 PO (14:06)
--- NOTE | 2021-06-06 14:06 | Discharge Summary ---
Discharge [facility] Reconcile Patient Problems Problems Reviewed?: Yes Discharge Medications New, Converted or Re-Newed RX: Transmitted to Pharmacy New Medications: Levothyroxine Sodium (Levothyroxine) 50 Mcg Capsule 50 MCG PO DAILY, #30 CAP Continued Medications: Ibuprofen (Ibuprofen) 200 Mg Tablet 400-600 MG PO Q8H PRN for PAIN-MILD (1-4), TAB Patient Instructions Goal/Follow Up Appt: F/u with PCP 1 week Activity & Diet Discharge Diet: No Restrictions Activity as Tolerated: Yes JYOTSNA TEJADA MD Jun 06, 2021 14:06
--- NOTE | 2021-06-06 15:22 | Pulmonary Progress Note ---
EM WAGNER MED STUDENT 06/06/21 1522: Subjective Date Seen by a Provider: Jun 06, 2021 Time Seen by a Provider: 06:55 Subjective/Events-last exam Elizabeth states she currently has no pain. She states she does not remember the events leading up to her hospitalization and she denies attempting to harm herself. Denies thoughts of harming herself. She denies nausea. Sepsis Event Evaluation Height, Weight, BMI Height: 5'2.00" Weight: 272lbs. 0.0oz. [id number]; 41.55 BMI Method:Stated Focused Exam Lactate Level 06/05/21 11:15: Lactic Acid Level 2.33*H 06/05/21 13:20: Lactic Acid Level 2.42*H 06/05/21 16:25: Lactic Acid Level 1.85 Exam Exam Patient acknowledged, consented, and participated in this virtual visit which was conducted using real time audio/video Vital Signs Date Time Temp Pulse Resp B/P (MAP) Pulse Ox O2 Delivery O2 Flow Rate FiO2 06/06/21 12:15 92 Nasal Cannula 8.00 06/06/21 12:00 110 26 106/75 89 OxyMask 7.00 06/06/21 12:00 36.2 06/06/21 11:00 111 20 121/66 89 OxyMask 7.00 06/06/21 10:00 107 22 108/58 88 OxyMask 7.00 06/06/21 09:00 105 24 102/57 90 OxyMask 7.00 06/06/21 08:00 104 22 103/61 91 OxyMask 7.00 06/06/21 08:00 37.0 06/06/21 08:00 92 OxyMask 8.00 06/06/21 07:06 89 OxyMask 8.00 06/06/21 07:00 105 06/06/21 07:00 105 21 90/47 89 OxyMask 7.00 06/06/21 06:00 104 21 96/60 90 OxyMask 7.00 06/06/21 05:00 101 22 108/54 91 OxyMask 7.00 06/06/21 04:19 92 OxyMask 8.00 06/06/21 04:00 102 22 107/52 90 OxyMask 7.00 06/06/21 04:00 36.4 93 OxyMask 7.00 06/06/21 03:00 103 22 104/55 90 OxyMask 7.00 06/06/21 02:00 103 25 102/48 90 OxyMask 7.00 06/06/21 01:00 103 06/06/21 01:00 103 21 94/50 90 OxyMask 7.00 06/06/21 00:00 36.8 06/06/21 00:00 102 23 89/49 91 OxyMask 7.00 06/05/21 23:59 93 OxyMask 8.00 06/05/21 23:00 102 27 89/50 92 OxyMask 6.00 06/05/21 22:00 105 29 91/50 91 OxyMask 6.00 06/05/21 21:00 104 27 94/49 90 OxyMask 6.00 06/05/21 20:00 104 25 108/58 90 OxyMask 6.00 06/05/21 20:00 93 OxyMask 8.00 06/05/21 20:00 37.0 06/05/21 19:00 105 26 117/66 90 OxyMask 6.00 06/05/21 19:00 105 06/05/21 18:00 105 30 114/68 91 OxyMask 6.00 06/05/21 17:34 OxyMask 6.00 06/05/21 17:00 108 25 107/65 91 OxyMask 15.00 06/05/21 16:00 107 28 98/57 93 OxyMask 15.00 06/05/21 16:00 36.6 06/05/21 15:40 92 OxyMask 10.00 I & O 06/06/21 07:00 Intake Total 0 ml Output Total 800 ml Balance -800 ml Height & Weight Height: 5'2.00" Weight: 272lbs. 0.0oz. [id number]; 41.55 BMI Method:Stated General Appearance: No Apparent Distress, WD/WN, Other (lethargic, does respond to steranl rub and is becoming more responsive) HEENT: PERRL/EOMI, Moist Mucous Membranes Neck: Non Tender, Supple Respiratory: Lungs Clear, No Accessory Muscle Use, No Respiratory Distress; No Crackles, No Wheezing Cardiovascular: Regular Rate, Rhythm, No Edema, No JVD, Tachycardia Capillary Refill: Less Than 3 Seconds Gastrointestinal: normal bowel sounds, soft Extremity: Non Tender, No Calf Tenderness, No Pedal Edema Neurologic/Psychiatric: Alert, Oriented x3 (per RN orientation comes and goes but is currently oriented x3), Other (no muscle rigidity, no response to Babinski) Skin: Normal Color, Warm/Dry Results Lab Laboratory Tests 06/05/21 01:31 06/05/21 06:50 06/05/21 13:20 06/06/21 03:07 Assessment/Plan Assessment/Plan recent AMS -resolving, minimal confusion currently -likely related to OD of tricyclics. Amphetamines and canabinoids also found in UDS respiratory acidosis, elevated lactate -resolved possible suicide attempt -patient currently denies suicidal ideation morbid obesity DVT/PE prophylaxis -lovenox, SCDs RAMANDEEP CAMEJO MD 06/06/21 1644: Supervisory-Addendum Brief Verification & Attestation Participated in pt care: history, MDM, physical Personally performed: history, MDM, supervision of care Care discussed with: Medical Student Procedures: n/a PLAN as above A medical student performed and documented this service. I reviewed all information documented by the medical student and made modifications to such information, when appropriate. Medical student performed patients physical exam. Medical decision making was done during tele-rounds with this medical student and a bedside RN . Plans in collaboration with bedside consultants and IM MDs. Discussed with RN to reach out if any questions or concerns A total of 15 minutes of critical care time was devoted to this patient today, required to treat and/or prevent further deterioration of critical care condition ( as above) . EM WAGNER MED STUDENT Jun 06, 2021 15:22 RAMANDEEP CAMEJO MD Jun 06, 2021 16:44
--- NOTE | 2021-06-06 20:49 | Progress Note ---
Subjective Subjective/Events-last exam Patient awake. Denies that she was trying to hurt herself. States that she did not want to . Denies any shortness of breath but is still requiring oxygen. Review of Systems Pulmonary: Cough Cardiovascular: Chest Pain, Palpitations Gastrointestinal: No: Nausea, Vomiting, Abdominal Pain Neurological: Weakness Focused Exam Lactate Level 06/05/21 11:15: Lactic Acid Level 2.33*H 06/05/21 13:20: Lactic Acid Level 2.42*H 06/05/21 16:25: Lactic Acid Level 1.85 Objective Exam Last Set of Vital Signs Vital Signs Date Time Temp Pulse Resp B/P (MAP) Pulse Ox O2 Delivery O2 Flow Rate FiO2 06/06/21 18:00 108 24 131/77 91 High Flow N/C 8.00 06/06/21 16:00 36.6 06/06/21 07:06 Capillary Refill : Less Than 3 Seconds I&O Intake and Output 06/05/21 23:59 Intake Total 2000 ml Output Total 550 ml Balance 1450 ml Intake Oral 0 ml IV Total 2000 ml Output Urine Total 550 ml Daily Weight Change Unsure General: Alert, Oriented X3, Cooperative, No Acute Distress HEENT: Mucous Memb Moist/[place] Lungs: Clear to Auscultation, Normal Air Movement Heart: Regular Rate, No Murmurs Abdomen: Normal Bowel Sounds, Soft, No Tenderness, No Masses Extremities: No Edema, No Tenderness/Swelling Neuro: Normal Speech, Strength at 5/5 X4 Ext, Sensation Intact, Cranial Nerves 3-12 NL Psych/Mental Status: Other (depressed and tearful) Results/Procedures Lab Laboratory Tests 06/06/21 03:07: White Blood Count 18.2H, Red Blood Count 3.58L, Hemoglobin 10.9L, Hematocrit 33L , Mean Corpuscular Volume 93, Mean Corpuscular Hemoglobin 30, Mean Corpuscular Hemoglobin Concent 33, Red Cell Distribution Width 14.9H, Platelet Count 295, Mean Platelet Volume 11.8, Immature Granulocyte % (Auto) 0, Neutrophils (%) (Auto) 89H, Lymphocytes (%) (Auto) 4L, Monocytes (%) (Auto) 6, Eosinophils (%) (Auto) 0, Basophils (%) (Auto) 0, Neutrophils # (Auto) 16.3H, Lymphocytes # (Auto) 0.7L, Monocytes # (Auto) 1.2H, Eosinophils # (Auto) 0.0, Basophils # (Auto) 0.1, Immature Granulocyte # (Auto) 0.1, Sodium Level 141, Potassium Level 3.4L, Chloride Level 109H, Carbon Dioxide Level 22, Anion Gap 10, Blood Urea Nitrogen 20H, Creatinine 1.16, Estimat Glomerular Filtration Rate 51, BUN/Creatinine Ratio 17, Glucose Level 136H, Calcium Level 8.6, Corrected Calcium 9.2, Phosphorus Level 3.3, Magnesium Level 2.1, Total Bilirubin 0.9, Aspartate Amino Transf (AST/SGOT) 10, Alanine Aminotransferase (ALT/SGPT) 13, Alkaline Phosphatase 70, Total Protein 5.7L, Albumin 3.2 Microbiology 06/05/21 MRSA Screen - Final, Complete MRSA not isolated 06/05/21 Urine Culture - Preliminary, Resulted Slight Growth Present Assessment/Plan Assessment/Plan (1) Acute and chronic respiratory failure with hypoxia Status: Acute Assessment & Plan: 06/06: Titrate oxygen as tolerated, MAT protocol (2) Altered mental status Status: Resolved Assessment & Plan: - Likely 2/2 to intentional OD, TCA, ECG normal, s/p treatment with Na Bicarb, HDS and protecting airway at this time 06/06: Transferred to floor today. Mental health evaluation today Qualifiers: Qualified Codes: R40.1 - Stupor (3) TCA (tricyclic antidepressant) overdose of undetermined intent Status: Acute Qualifiers: Qualified Codes: T43.014A - Poisoning by tricyclic antidepressants, undetermined, initial encounter (4) History of suicidal ideation Status: Acute Assessment & Plan: - Will need screened after mental status improves (5) Substance abuse Assessment & Plan: - + Meth/MJ (6) Hypothyroid Status: Chronic Assessment & Plan: - TSH 26, IV levothyroixine given Qualifiers: Qualified Codes: E03.9 - Hypothyroidism, unspecified (7) Hypertension Status: Chronic Assessment & Plan: - Holding home meds due to hypotension Qualifiers: Qualified Codes: I10 - Essential (primary) hypertension JYOTSNA TEJADA MD Jun 06, 2021 20:49
[2021-06-07] MEDS: NS IV 1000 ML 1,000 ML IV SCH ×3 (00:22→21:17)
[2021-06-07] MEDS: PIPERACILLIN/TAZOBACTAM (BULK) 4.5 GM in NS (IVPB) 100 ML IV SCH ×4 (00:31→23:35)
[2021-06-07] MEDS: ENOXAPARIN 40 MG/0.4 ML (LOVENOX) SYR SC SCH ×2 (05:12→16:16)
[2021-06-07 05:31] LABS: BASOPHILS # (AUTO) 0.1 10^3/uL (0.0-0.1); BASOPHILS % (AUTO) 1 % (0-10); EOSINOPHILS # (AUTO) 0.1 10^3/uL (0.0-0.3); EOSINOPHILS % (AUTO) 0 % (0-10); HEMATOCRIT 31 % (35-52); LYMPHOCYTES % (AUTO) 6 % (12-44); MEAN CORPUSCULAR HEMOGLOBIN 30 pg (25-34); MEAN CORPUSCULAR HGB CONC 32 g/dL (32-36); MEAN CORPUSCULAR VOLUME 93 fL (80-99); MEAN PLATELET VOLUME 11.8 fL (9.0-12.2); MONOCYTES # (AUTO) 1.1 10^3/uL (0.0-1.0); MONOCYTES % (AUTO) 7 % (0-12); NEUTROPHILS # (AUTO) 14.2 10^3/uL (1.8-7.8); NEUTROPHILS % (AUTO) 85 % (42-75); PLATELET COUNT 275 10^3/uL (130-400); WHITE BLOOD COUNT 16.6 10^3/uL (4.3-11.0)
[2021-06-07 05:53] LABS: ALBUMIN 3.3 GM/DL (3.2-4.5); POTASSIUM 3.8 MMOL/L (3.6-5.0)
[2021-06-07 05:55] LABS: CALCIUM 8.9 MG/DL (8.5-10.1)
[2021-06-07 05:56] LABS: TOTAL PROTEIN 5.9 GM/DL (6.4-8.2)
[2021-06-07 05:59] LABS: CREATININE SERUM 0.86 MG/DL (0.60-1.30); PHOSPHORUS 2.9 MG/DL (2.3-4.7)
[2021-06-07] MEDS: KCL 20 MEQ TAB (K-DUR) PO SCH (06:00)
[2021-06-07] MEDS: POTASSIUM CL 10MEQ/50ML IVPB 50 ML IV SCH (06:00)
[2021-06-07] MEDS: MAGNESIUM 1 GM/100 ML IVPB 100 ML IV SCH (06:52)
[2021-06-07] MEDS: FOLIC ACID 1 MG TAB PO SCH (09:43)
--- NOTE | 2021-06-07 11:59 | Progress Note - Hospitalist ---
Subjective HPI/CC On Admission Date Seen by Provider: Jun 07, 2021 Time Seen by Provider: 11:00 Subjective/Events-last exam Patient remains on BiPAP Pulmonary consulted ABG ordered noted hypoxemia Could have aspirated some 18 on appropriate treatment Undiagnosed sleep apnea likely the cause Home meds restarted Review of Systems General: Fatigue Pulmonary: Dyspnea Focused Exam Lactate Level 06/05/21 11:15: Lactic Acid Level 2.33*H 06/05/21 13:20: Lactic Acid Level 2.42*H 06/05/21 16:25: Lactic Acid Level 1.85 Objective Exam Vital Signs Vital Signs Date Time Temp Pulse Resp B/P (MAP) Pulse Ox O2 Delivery O2 Flow Rate FiO2 06/08/21 03:38 36.4 93 32 113/71 94 NIV Bilevel 60.00 06/07/21 20:45 60 Capillary Refill : Less Than 3 Seconds General Appearance: No Apparent Distress, WD/WN, Chronically ill, Obese, Other (On BiPAP) Respiratory: No Accessory Muscle Use, No Respiratory Distress, Decreased Breath Sounds Cardiovascular: Regular Rate, Rhythm Neurologic/Psychiatric: Alert, Oriented x3, No Motor/Sensory Deficits, Normal Mood/Affect Results/Procedures Lab Patient resulted labs reviewed. Assessment/Plan Assessment and Plan Assess & Plan/Chief Complaint Assessment: Tricyclic overdose Aspiration pneumonia Undiagnosed sleep apnea Morbid obesity Hypoxemia requiring BiPAP Hypothyroidism Plan: Pulmonary consult BiPAP ABG Chest x-ray Critical Care Critically Ill Patient ZEYNEP DALY DO Jun 07, 2021 11:59
[2021-06-07 12:20] LABS: ABG OXYGEN SATURATION 92 % (94-100); ABG PCO2 34 MMHG (35-45); ABG PH 7.44 (7.37-7.43); ABG PO2 64 MMHG (79-93); ABG TCO2 23.7 MMOL/L (21.0-31.0); ALLENS TEST YES-POS
[2021-06-07 12:21] LABS: INSPIRED O2 70%; VENTILATOR NO
--- NOTE | 2021-06-07 15:15 | Diagnostic Imaging Report ---
EXAMINATION: Chest, one view. HISTORY: Hypoxia. COMPARISON: 06/05/2021. FINDINGS: There are severe central airspace opacities. No pleural effusion or pneumothorax. Heart size is normal. IMPRESSION: 1. Severe bilateral central airspace opacities most suggestive of noncardiogenic edema. Dictated by: Dictated on workstation # [id number]
--- NOTE | 2021-06-07 15:37 | Pulmonary Progress Note ---
Subjective Date Seen by a Provider: Jun 07, 2021 Time Seen by a Provider: 15:33 Subjective/Events-last exam This patient who had a history of tricyclic overdose and cannabis use developed respiratory failure few days ago and improved. Today again when she is on the medical floor she developed respiratory distress requiring tube placed for on BiPAP ventilation. A pulmonary consultation is requested. I made a video visit and discussed with the patient's RN. A repeat chest x-ray done today showed bilateral worsening infiltrates. According to the RN her bilateral breath sounds decreased. Patient is obese with a BMI of 44.9 kg/m. Considering that she got fluid boluses and the possibility of aspiration I have continued the IV Zosyn and gave an order for IV Lasix 40 mg IV push stat. A repeat chest x-ray and a BMP and ABG ordered for tomorrow. Review of Systems PER ATTENDING PHYSICIAN Sepsis Event Evaluation Height, Weight, BMI Height: 5'2.00" Weight: 272lbs. 0.0oz. 123.903901xr; 41.55 BMI Method:Stated Focused Exam Lactate Level 06/05/21 11:15: Lactic Acid Level 2.33*H 06/05/21 13:20: Lactic Acid Level 2.42*H 06/05/21 16:25: Lactic Acid Level 1.85 Exam Exam Patient acknowledged, consented, and participated in this virtual visit which was conducted using real time audio/video Vital Signs Date Time Temp Pulse Resp B/P (MAP) Pulse Ox O2 Delivery O2 Flow Rate FiO2 06/07/21 15:15 110 38 131/75 92 NIV Bilevel 06/07/21 14:30 113 40 93 60.00 06/07/21 11:50 37.4 106 33 138/71 95 NIV Bilevel 06/07/21 10:32 102 37 97 70.00 06/07/21 08:34 37.0 100 36 133/68 95 NIV Bilevel 06/07/21 08:00 NIV Bilevel 16.00 70 06/07/21 06:37 104 35 97 80.00 06/07/21 04:32 37.4 102 32 127/67 96 NIV Bilevel 06/07/21 03:07 35 93 80.00 06/07/21 00:21 36.6 100 28 137/76 96 NIV Bilevel 06/06/21 23:10 32 94 80.00 06/06/21 20:53 24 93 80.00 06/06/21 20:37 86 High Flow N/C 15.00 06/06/21 20:15 90 High Flow N/C 15.00 06/06/21 18:00 108 24 131/77 91 High Flow N/C 8.00 06/06/21 17:00 104 22 136/80 92 High Flow N/C 8.00 06/06/21 16:00 36.6 105 33 129/77 91 High Flow N/C 8.00 06/06/21 16:00 92 Nasal Cannula 8.00 06/06/21 15:42 OxyMask 6.00 I & O 06/07/21 07:00 Intake Total 1750 ml Output Total 950 ml Balance 800 ml Height & Weight Height: 5'2.00" Weight: 272lbs. 0.0oz. 123.397379lp; 41.55 BMI Method:Stated General Appearance: No Apparent Distress, WD/WN, Other (lethargic, does respond to steranl rub and is becoming more responsive) HEENT: PERRL/EOMI, Moist Mucous Membranes Neck: Non Tender, Supple Respiratory: Lungs Clear, No Accessory Muscle Use, No Respiratory Distress; No Crackles, No Wheezing Cardiovascular: Regular Rate, Rhythm, No Edema, No JVD, Tachycardia Capillary Refill: Less Than 3 Seconds Gastrointestinal: normal bowel sounds, soft Extremity: Non Tender, No Calf Tenderness, No Pedal Edema Neurologic/Psychiatric: Alert, Oriented x3 (per RN orientation comes and goes but is currently oriented x3), Other (no muscle rigidity, no response to Babinski) Skin: Normal Color, Warm/Dry Other comments PE PER ATTENDING PHYSICIAN Results Lab Laboratory Tests 06/06/21 03:07 06/07/21 05:18 Meds REVIEWED Radiology CXR REVIEWED FROM TODAY Assessment/Plan Assessment/Plan 1. Acute hypoxic respiratory failure in a patient with tricyclic overdose 2. Bilateral infiltrates rule out aspiration pneumonia versus fluid overload 3. Drug abuse history 4. Morbid obesity. 5. Encephalopathy due to drug overdose Recommendations 1. We will increase BiPAP to 18/10 with FiO2 of 60% and wean FiO2 as tolerated 2. Continue IV Zosyn and s/q lovenox 3. We will give Lasix 40 mg IV push x1 4. We will repeat chest x-ray and ABG in a.m. 5. Reviewed with the bedside RN. Critical Care: Critically Ill Patient Time spent with patient (mins): 35 SHAGGY PARRA MD Jun 07, 2021 15:37
[2021-06-07] MEDS ORDERED: FUROSEMIDE 40 MG/4 ML INJ (LASIX) IVP NR (15:45)
[2021-06-08 05:37] LABS: ABG BASE EXCESS 0.1 MMOL/L (-2.5-2.5); ABG OXYGEN SATURATION 96 % (94-100); ABG PCO2 37 MMHG (35-45); ABG PH 7.43 (7.37-7.43); ABG PO2 78 MMHG (79-93); ABG TCO2 25.1 MMOL/L (21.0-31.0); ALLENS TEST YES-POS; INSPIRED O2 60%; VENTILATOR NO
[2021-06-08] MEDS: ENOXAPARIN 40 MG/0.4 ML (LOVENOX) SYR SC SCH ×2 (06:16→16:26)
[2021-06-08] MEDS: LEVOTHYROXINE 100 MCG INJ (SYNTHROID) VIAL IV SCH (06:16)
[2021-06-08 06:30] LABS: BASOPHILS # (AUTO) 0.1 10^3/uL (0.0-0.1); BASOPHILS % (AUTO) 1 % (0-10); EOSINOPHILS # (AUTO) 0.2 10^3/uL (0.0-0.3); EOSINOPHILS % (AUTO) 1 % (0-10); HEMATOCRIT 31 % (35-52); LYMPHOCYTES % (AUTO) 8 % (12-44); MEAN CORPUSCULAR HEMOGLOBIN 30 pg (25-34); MEAN CORPUSCULAR HGB CONC 32 g/dL (32-36); MEAN CORPUSCULAR VOLUME 93 fL (80-99); MEAN PLATELET VOLUME 11.6 fL (9.0-12.2); MONOCYTES # (AUTO) 0.9 10^3/uL (0.0-1.0); MONOCYTES % (AUTO) 7 % (0-12); NEUTROPHILS # (AUTO) 10.3 10^3/uL (1.8-7.8); NEUTROPHILS % (AUTO) 82 % (42-75); PLATELET COUNT 289 10^3/uL (130-400); WHITE BLOOD COUNT 12.5 10^3/uL (4.3-11.0)
[2021-06-08 06:42] LABS: ALBUMIN 3.4 GM/DL (3.2-4.5)
[2021-06-08 06:43] LABS: POTASSIUM 3.2 MMOL/L (3.6-5.0)
[2021-06-08 06:45] LABS: TOTAL PROTEIN 6.2 GM/DL (6.4-8.2)
[2021-06-08 06:47] LABS: BILIRUBIN,TOTAL 0.7 MG/DL (0.1-1.0)
[2021-06-08 06:49] LABS: CREATININE SERUM 0.76 MG/DL (0.60-1.30)
--- NOTE | 2021-06-08 07:15 | Diagnostic Imaging Report ---
HISTORY: Pneumonia COMPARISON: 06/07/2021 TECHNIQUE: Frontal view of the chest FINDINGS: There is dense consolidation in the lung bases and midlungs bilaterally. This is unchanged since the prior exam. No pleural effusion or pneumothorax is seen. The cardiac silhouette is normal in size. IMPRESSION: 1. Dense consolidation in the lungs bilaterally, stable since the prior exam. Dictated by: Dictated on workstation # [id number]
[2021-06-08] MEDS ORDERED: KCL 20 MEQ TAB (K-DUR) PO ONE ×2 (08:00→14:30)
--- NOTE | 2021-06-08 08:02 | Progress Note - Hospitalist ---
Subjective HPI/CC On Admission Date Seen by Provider: Jun 08, 2021 Time Seen by Provider: 10:00 Subjective/Events-last exam Patient doing much better Changing thyroid supplement to oral from IV Hep-Lock IV fluid No bowel movement yet BiPAP last night Patient denies any suicidal ideation Review of Systems General: Fatigue, Malaise Focused Exam Lactate Level Objective Exam Vital Signs Vital Signs Date Time Temp Pulse Resp B/P (MAP) Pulse Ox O2 Delivery O2 Flow Rate FiO2 06/09/21 03:20 36.0 84 28 144/81 97 NIV Bilevel 65.00 06/07/21 20:45 60 Capillary Refill : Less Than 3 Seconds General Appearance: No Apparent Distress, WD/WN, Chronically ill, Obese Respiratory: No Accessory Muscle Use, No Respiratory Distress, Decreased Breath Sounds Cardiovascular: Regular Rate, Rhythm Neurologic/Psychiatric: Alert, Oriented x3, Depressed Affect Results/Procedures Lab Laboratory Tests 06/08/21 06:19 Patient resulted labs reviewed. Assessment/Plan Assessment and Plan Assess & Plan/Chief Complaint Assessment: Tricyclic overdose Aspiration pneumonia Undiagnosed sleep apnea Morbid obesity Hypoxemia requiring BiPAP Hypothyroidism Plan: Pulmonary consult BiPAP ABG Chest x-ray 06/08/2021: Supportive care Change Synthroid from IV to p.o. Monitor bowels Hep-Lock IV fluid Critical Care Critically Ill Patient ZEYNEP DALY DO Jun 08, 2021 08:02
[2021-06-08] MEDS: FOLIC ACID 1 MG TAB PO SCH (08:56)
[2021-06-08] MEDS: PIPERACILLIN/TAZOBACTAM (BULK) 4.5 GM in NS (IVPB) 100 ML IV SCH ×3 (08:57→23:35)
[2021-06-08] MEDS ORDERED: FUROSEMIDE 40 MG/4 ML INJ (LASIX) IVP ONE (14:30)
--- NOTE | 2021-06-08 14:30 | Pulmonary Progress Note ---
Subjective Date Seen by a Provider: Jun 08, 2021 Time Seen by a Provider: 14:26 Subjective/Events-last exam today she is feeling better. off biap and currently on 6l hfn. cxr unchanged. k is low Review of Systems PER ATTENDING PHYSICIAN Sepsis Event Evaluation Height, Weight, BMI Height: 5'2.00" Weight: 272lbs. 0.0oz. 123.569795dh; 41.55 BMI Method:Stated Focused Exam Lactate Level 06/05/21 16:25: Lactic Acid Level 1.85 Exam Exam Patient acknowledged, consented, and participated in this virtual visit which was conducted using real time audio/video Vital Signs Date Time Temp Pulse Resp B/P (MAP) Pulse Ox O2 Delivery O2 Flow Rate FiO2 06/08/21 11:36 35.9 96 24 137/71 91 High Flow N/C 6.00 06/08/21 10:56 Nasal Cannula 6.00 06/08/21 08:00 NIV Bilevel 06/08/21 07:27 35.9 96 32 110/61 92 NIV Bilevel 60.00 06/08/21 07:22 94 40.00 06/08/21 07:19 95 30 96 60.00 06/08/21 03:38 36.4 93 32 113/71 94 NIV Bilevel 60.00 06/08/21 02:35 100 32 95 60.00 06/07/21 23:34 35.9 97 36 125/73 94 NIV Bilevel 60.00 06/07/21 21:40 101 34 95 60.00 06/07/21 20:45 95 NIV Bilevel 60 06/07/21 19:40 37.0 112 32 144/79 92 NIV Bilevel 60.00 06/07/21 18:42 113 40 93 60.00 06/07/21 15:15 110 38 131/75 92 NIV Bilevel 06/07/21 14:30 113 40 93 60.00 I & O 06/08/21 06:59 Intake Total 2820 ml Output Total 1875 ml Balance 945 ml Height & Weight Height: 5'2.00" Weight: 272lbs. 0.0oz. 123.092642rp; 41.55 BMI Method:Stated General Appearance: No Apparent Distress, WD/WN, Chronically ill, Obese, Other (On BiPAP) HEENT: PERRL/EOMI, Moist Mucous Membranes Neck: Non Tender, Supple Respiratory: No Accessory Muscle Use, No Respiratory Distress, Decreased Breath Sounds Cardiovascular: Regular Rate, Rhythm Capillary Refill: Less Than 3 Seconds Gastrointestinal: normal bowel sounds, soft Extremity: Non Tender, No Calf Tenderness, No Pedal Edema Neurologic/Psychiatric: Alert, Oriented x3, No Motor/Sensory Deficits, Normal Mood/Affect Skin: Normal Color, Warm/Dry Other comments per attending physician Results Lab Laboratory Tests 06/07/21 05:18 06/08/21 06:19 Meds reviewed Radiology cxr reviewed NAME: SOPHIA VEGA [facility] REC#: [id number] PT STATUS: ADM IN : 1980 PHYSICIAN: SHAGGY PARRA MD ADMIT DATE: 06/05/21 Signed Date of Exam:06/08/21 CHEST 1 VIEW, AP/PA ONLY HISTORY: Pneumonia COMPARISON: 06/07/2021 TECHNIQUE: Frontal view of the chest FINDINGS: There is dense consolidation in the lung bases and midlungs bilaterally. This is unchanged since the prior exam. No pleural effusion or pneumothorax is seen. The cardiac silhouette is normal in size. IMPRESSION: 1. Dense consolidation in the lungs bilaterally, stable since the prior exam. Dictated by: Dictated on workstation # [id number] Dict: 06/08/2132 Trans: 06/08/21 0744 [facility] [id number] Interpreted by: JYOTI BURGOS MD Electronically signed by: JYOTI BURGOS MD 06/08/21 0744 Assessment/Plan Assessment/Plan 1. Acute hypoxic respiratory failure in a patient with tricyclic overdose 2. Bilateral infiltrates rule out aspiration pneumonia versus fluid overload 3. Drug abuse history 4. Morbid obesity. 5. Encephalopathy due to drug overdose Recommendations 1. We will continue O2 with hfnc and prn BIPAP 2. Continue IV Zosyn and s/q lovenox 3. give another dose of lasix today 4. We will repeat chest x-ray and ABG in a.m 5. correct Low potassium. 5. Reviewed with the bedside RN. Critical Care: Critically Ill Patient Time spent with patient (mins): 25 SHAGGY PARRA MD Jun 08, 2021 14:30
[2021-06-08] MEDS: HYDROcodone/APAP 5 MG/325 MG (LORTAB) TAB PO PRN (21:31)
[2021-06-09] MEDS: KCL 20 MEQ TAB (K-DUR) PO SCH (05:38)
[2021-06-09] MEDS: LEVOTHYROXINE 50 MCG (LEVOTHROID) TAB PO SCH (05:38)
[2021-06-09] MEDS: ENOXAPARIN 40 MG/0.4 ML (LOVENOX) SYR SC SCH ×2 (05:39→16:06)
[2021-06-09 05:59] LABS: BASOPHILS # (AUTO) 0.1 10^3/uL (0.0-0.1); BASOPHILS % (AUTO) 1 % (0-10); EOSINOPHILS # (AUTO) 0.3 10^3/uL (0.0-0.3); EOSINOPHILS % (AUTO) 3 % (0-10); HEMATOCRIT 30 % (35-52); HEMOGLOBIN 9.5 g/dL (11.5-16.0); LYMPHOCYTES # (AUTO) 0.9 10^3/uL (1.0-4.0); LYMPHOCYTES % (AUTO) 10 % (12-44); MEAN CORPUSCULAR HEMOGLOBIN 30 pg (25-34); MEAN CORPUSCULAR HGB CONC 32 g/dL (32-36); MEAN CORPUSCULAR VOLUME 93 fL (80-99); MEAN PLATELET VOLUME 11.6 fL (9.0-12.2); MONOCYTES # (AUTO) 0.8 10^3/uL (0.0-1.0); MONOCYTES % (AUTO) 9 % (0-12); NEUTROPHILS # (AUTO) 6.9 10^3/uL (1.8-7.8); NEUTROPHILS % (AUTO) 76 % (42-75); PLATELET COUNT 241 10^3/uL (130-400); WHITE BLOOD COUNT 9.1 10^3/uL (4.3-11.0)
[2021-06-09 06:12] LABS: ALBUMIN 3.1 GM/DL (3.2-4.5); POTASSIUM 3.2 MMOL/L (3.6-5.0)
[2021-06-09 06:13] LABS: CALCIUM 8.8 MG/DL (8.5-10.1)
[2021-06-09 06:14] LABS: TOTAL PROTEIN 5.7 GM/DL (6.4-8.2)
[2021-06-09 06:16] LABS: BILIRUBIN,TOTAL 0.6 MG/DL (0.1-1.0)
[2021-06-09 06:18] LABS: CREATININE SERUM 0.73 MG/DL (0.60-1.30)
[2021-06-09 06:21] LABS: MAGNESIUM 1.8 MG/DL (1.6-2.4)
[2021-06-09] MEDS: MAGNESIUM 1 GM/100 ML IVPB 100 ML IV SCH (06:53)
[2021-06-09] MEDS: POTASSIUM CL 10MEQ/50ML IVPB 50 ML IV SCH ×5 (06:53→10:06)
--- NOTE | 2021-06-09 08:02 | Progress Note - Hospitalist ---
Subjective HPI/CC On Admission Date Seen by Provider: Jun 09, 2021 Time Seen by Provider: 11:00 Subjective/Events-last exam Patient doing well Back on 10 L of oxygen Potassium supplement for 3.2 level No BM yet eating and drinking pretty well Overall improved Review of Systems General: Fatigue, Malaise Objective Exam Vital Signs Vital Signs Date Time Temp Pulse Resp B/P (MAP) Pulse Ox O2 Delivery O2 Flow Rate FiO2 06/10/21 03:08 87 26 96 65.00 06/10/21 03:08 36.6 134/80 NIV Bilevel 06/09/21 08:00 55 Capillary Refill : Less Than 3 Seconds General Appearance: No Apparent Distress, WD/WN, Chronically ill, Obese Respiratory: Lungs Clear, No Accessory Muscle Use, No Respiratory Distress, Decreased Breath Sounds Cardiovascular: Regular Rate, Rhythm Neurologic/Psychiatric: Alert, Oriented x3, No Motor/Sensory Deficits, Normal Mood/Affect Results/Procedures Lab Laboratory Tests 06/09/21 05:45 Patient resulted labs reviewed. Assessment/Plan Assessment and Plan Assess & Plan/Chief Complaint Assessment: Tricyclic overdose Aspiration pneumonia Undiagnosed sleep apnea Morbid obesity Hypoxemia requiring BiPAP Hypothyroidism Plan: Pulmonary consult BiPAP ABG Chest x-ray 06/08/2021: Supportive care Change Synthroid from IV to p.o. Monitor bowels Hep-Lock IV fluid 06/09/2021: Monitor closely Wean oxygen Critical Care Critically Ill Patient ZEYNEP DALY DO Jun 09, 2021 08:01
[2021-06-09] MEDS: FOLIC ACID 1 MG TAB PO SCH (08:42)
[2021-06-09] MEDS: PIPERACILLIN/TAZOBACTAM (BULK) 4.5 GM in NS (IVPB) 100 ML IV SCH ×3 (08:42→23:28)
[2021-06-09] MEDS: HYDROcodone/APAP 5 MG/325 MG (LORTAB) TAB PO PRN ×2 (12:46→20:58)
[2021-06-10] MEDS: HYDROcodone/APAP 5 MG/325 MG (LORTAB) TAB PO PRN ×2 (03:13→20:11)
[2021-06-10] MEDS: KCL 20 MEQ TAB (K-DUR) PO SCH (05:33)
[2021-06-10] MEDS: ENOXAPARIN 40 MG/0.4 ML (LOVENOX) SYR SC SCH ×2 (05:33→17:16)
[2021-06-10] MEDS: LEVOTHYROXINE 50 MCG (LEVOTHROID) TAB PO SCH (05:33)
[2021-06-10 06:09] LABS: BASOPHILS # (AUTO) 0.1 10^3/uL (0.0-0.1); BASOPHILS % (AUTO) 1 % (0-10); EOSINOPHILS # (AUTO) 0.4 10^3/uL (0.0-0.3); EOSINOPHILS % (AUTO) 4 % (0-10); HEMATOCRIT 34 % (35-52); HEMOGLOBIN 11.1 g/dL (11.5-16.0); LYMPHOCYTES # (AUTO) 1.1 10^3/uL (1.0-4.0); LYMPHOCYTES % (AUTO) 12 % (12-44); MEAN CORPUSCULAR HEMOGLOBIN 30 pg (25-34); MEAN CORPUSCULAR HGB CONC 32 g/dL (32-36); MEAN CORPUSCULAR VOLUME 93 fL (80-99); MEAN PLATELET VOLUME 11.1 fL (9.0-12.2); MONOCYTES # (AUTO) 0.9 10^3/uL (0.0-1.0); MONOCYTES % (AUTO) 9 % (0-12); NEUTROPHILS % (AUTO) 73 % (42-75); PLATELET COUNT 335 10^3/uL (130-400); WHITE BLOOD COUNT 9.7 10^3/uL (4.3-11.0)
[2021-06-10 06:32] LABS: ALBUMIN 3.5 GM/DL (3.2-4.5); POTASSIUM 3.9 MMOL/L (3.6-5.0)
[2021-06-10 06:33] LABS: CALCIUM 9.5 MG/DL (8.5-10.1)
[2021-06-10 06:35] LABS: TOTAL PROTEIN 6.7 GM/DL (6.4-8.2)
[2021-06-10 06:36] LABS: BILIRUBIN,TOTAL 0.5 MG/DL (0.1-1.0)
[2021-06-10] MEDS: POTASSIUM CL 10MEQ/50ML IVPB 50 ML IV SCH (06:37)
[2021-06-10 06:38] LABS: CREATININE SERUM 0.76 MG/DL (0.60-1.30)
[2021-06-10 06:41] LABS: MAGNESIUM 1.9 MG/DL (1.6-2.4)
[2021-06-10] MEDS: MAGNESIUM 1 GM/100 ML IVPB 100 ML IV SCH (06:47)
[2021-06-10] MEDS: FOLIC ACID 1 MG TAB PO SCH (08:38)
--- NOTE | 2021-06-10 08:38 | Diagnostic Imaging Report ---
INDICATION: Pneumonia, follow-up. PA and lateral chest obtained at 08:25 a.m. compared to 06/08/2021 FINDINGS: Heart and mediastinal silhouette are normal in appearance. Left-sided PICC line is unchanged. Extensive bilateral infiltrates remain present and appear similar to the prior study. There is no pneumothorax or gross pleural fluid. IMPRESSION: Stable extensive bilateral infiltrates with no significant change. Dictated by: Dictated on workstation # [id number]
[2021-06-10] MEDS: AUGMENTIN 875 MG TAB (AMOXICILLIN/CLAVULANATE) PO SCH ×2 (10:34→17:16)
--- NOTE | 2021-06-10 11:11 | Pulmonary Consultation ---
History of Present Illness History of Present Illness Date Seen by Provider: Jun 10, 2021 Time Seen by Provider: 10:30 Date of Admission Patient acknowledged, consented, and participated in this virtual visit which was conducted using real time audio/video. Thank you for asking us to see this patient for respiratory insufficiency and distress likely due to asp pna from OD and possible undiagnosed OHS/ALEN. HPC: Recent events: Feels better despite higher O2 needs. Wants to go home. PMH: Hypothyroid, Htn., chronic anemia. SH: smoking history Y FH: CAD htn. ROS: as in HPI. PE: Obese. VSS O2 sat 90-91% on 12 LPM. HEENT: No obvious masses, adenopathy or JVD. Chest: Crackles CV: RRR S1 S2 No murmur or added sounds. Abd: Non-tender. Bowel sounds Y. : Unremarkable. Manning N. [employer] LO[employer]ER/psychiatric: Alert and oriented, grossly intact. No obvious focal findings. Extremities: 2+ edema. Capillary refill < 3 seconds. Skin: unremarkable. Results: Decreased Hb 11.1. WCC normal. 7.43/37/78 on 60%. Covid neg. CXR w worsening B infilts and RLL air bronchogram. A/P: Respiratory insufficiency/distress due to asp pna, possible undiagnosed OHS/ALEN: Cont O2, Duonebs, abx. Cont Lovenox. Available chart/ vitals / labs /images reviewed. Video assessment done using teleICU camera, rest of exam as per RN. Monitor for increasing oxygenation needs and/or need for ICU transfer. Discussed with DWAYNE Story and Dr. Conrad. Asked RN to reach out to eICU if any questions or concerns later. Time spent with patient/coordination of care with other health professionals (mins): Allergies and Home Medications Allergies Coded Allergies: No Known Drug Allergies (Unverified , 06/25/20) Home Medications Ibuprofen 200 Mg Tablet, 400-600 MG PO Q8H PRN for PAIN-MILD (1-4), (Reported) Levothyroxine Sodium 50 Mcg Capsule, 50 MCG PO DAILY Prescribed by: JYOTSNA TEJADA on 06/06/21 1406 Past Medical/Social/Family Hx Patient Social History Smoking Status: Unknown if Ever Smoked Smokeless Tobacco Frequency: Unknown if Ever Used Use of E-Cig and/or Vaping dev: Unable to obtain Substance use?: Unable to obtain Alcohol Use?: Unable to obtain Pt stated abuse/neglect: Unable to obtain Immunizations Up To Date Influenza Vaccine Up-to-Date: No; Not Current Tetanus Booster (TDap): Unknown Hepatitis A: No Hepatitis B: No TB Skin Test: None Date of Pneumonia Vaccine: Apr 06, 2012 Current Status status: Unable to obtain status: Unable to obtain Advance Directives: Unable to obtain Advance Directive Location: Unable to obtain copy Primary Language: Syriac Preferred Spoken Language: Syriac Is interpretation needed?: Unable to obtain Past Medical History HTN Hypothyroidism Family Medical History Family Hx: Father: colon Paternal grandmother: breast cancer Materanl aunt: leukemia & lupus Review of Systems Constitutional: see HPI EENTM: see HPI Respiratory: see HPI Gastrointestinal: see HPI Genitourinary: see HPI Musculoskeletal: see HPI Skin: see HPI Psychiatric/Neurological: See HPI All Other Systems Reviewed Negative Unless Noted: Yes Sepsis Event Evaluation Height, Weight, BMI Height: 5'2.00" Weight: 272lbs. 0.0oz. 123.850954lm; 41.55 BMI Method:Stated Exam Exam Patient acknowledged, consented, and participated in this virtual visit which was conducted using real time audio/video Vital Signs Date Time Temp Pulse Resp B/P (MAP) Pulse Ox O2 Delivery O2 Flow Rate FiO2 06/10/21 09:22 90 High Flow N/C 12.00 06/10/21 08:00 92 High Flow N/C 9.00 06/10/21 07:43 35.1 91 24 135/79 93 High Flow N/C 12.00 0.00 06/10/21 03:08 87 26 96 65.00 06/10/21 03:08 36.6 85 25 134/80 97 NIV Bilevel 65.00 06/09/21 23:32 92 High Flow N/C 8.00 06/09/21 23:32 36.6 87 28 167/74 96 NIV Bilevel 65.00 06/09/21 20:55 92 High Flow N/C 9.00 06/09/21 20:50 158/93 06/09/21 19:01 91 High Flow N/C 8.00 06/09/21 19:00 36.1 107 20 91 High Flow N/C 9.00 06/09/21 16:22 36.3 102 16 138/88 90 High Flow N/C 9.00 06/09/21 12:09 36.8 110 28 180/81 89 High Flow N/C 9.00 I & O 06/10/21 07:00 Intake Total 2904 ml Balance 2904 ml Height & Weight Height: 5'2.00" Weight: 272lbs. 0.0oz. 123.508066fb; 41.55 BMI Method:Stated General Appearance: No Apparent Distress, WD/WN, Chronically ill, Obese HEENT: PERRL/EOMI, Moist Mucous Membranes Neck: Non Tender, Supple Respiratory: Lungs Clear, No Accessory Muscle Use, No Respiratory Distress, Decreased Breath Sounds Cardiovascular: Regular Rate, Rhythm Capillary Refill: Less Than 3 Seconds Peripheral Pulses: 1+ Dorsalis Pedis (R), 1+ Left Dors-Pedis (L) (See free text) Gastrointestinal: normal bowel sounds, soft Extremity: Non Tender, No Calf Tenderness, No Pedal Edema Neurologic/Psychiatric: Alert, Oriented x3, No Motor/Sensory Deficits, Normal Mood/Affect Skin: Normal Color, Warm/Dry Results Lab Laboratory Tests 06/09/21 05:45 06/10/21 05:55 Assessment/Plan Assessment/Plan See free text. Critical Care: Critically Ill Patient MAGO RIZVI MD Jun 10, 2021 11:11
--- NOTE | 2021-06-10 11:48 | Physical Therapy Evaluation ---
PT Evaluation-General Medical Diagnosis Admission Date Jun 05, 2021 at 02:21 Medical Diagnosis: OD/AMS Onset Date: Jun 05, 2021 Therapy Diagnosis Therapy Diagnosis: debility/weakness Height/Weight Height (Feet): 5 Height (Inches): 2.00 Weight (Pounds): 272 Weight (Ounces): 0.0 Precautions Precautions/Isolations: Standard Precautions Referral Physician: Anamaria Reason for Referral: Evaluation/Treatment Medical History Pertinent Medical History: Hypothroidism Current History EMS secondary family found patient unresponsive Reviewed History: Yes Social History Home: Single Level Current Living Status: Significant Other Prior Prior Level of Function SCALE: Activities may be completed with or without assistive devices. 5-Xxaxvzmwfk-kmmywjq completes the activity by him/herself with no assistance from a helper. 5-Set-up or Clean-up Assistance-helper sets up or cleans up; patient completes activity. [place] assists only prior to or following the activity. 4-Supervision or Touching Assistance-helper provides verbal cues and/or touchin g/steadying and/or contact guard assistance as patient completes activity. Assistance may be provided throughout the activity or intermittently. 3-Partial/Moderate Assistance-helper does LESS THAN HALF the effort. [place] lifts, holds or supports trunk or limbs, but provides less than half the effort. 2-Substantial/Maximal Assistance-helper does MORE THAN HALF the effort. [place] lifts or holds trunk or limbs and provides more than half the effort. 9-Yiupiqgja-yifrvl does ALL the effort. Patient does none of the effort to complete the activity. Or, the assistance of 2 or more helpers is required for the patient to complete the activity. If activity was not attempted, code reason: 7-Patient Refused. 9-Not Applicable-not attempted and the patient did not perform the activity before the current illness, exacerbation or injury. 10-Not Attempted due to Environmental Limitations-(lack of equipment, weather restraints, etc.). 88-Not Attempted due to Medical Conditions or Safety Concerns. Bed Mobility: 6 Transfers (B,C,W/C): 6 Gait: 6 Stairs: 6 Indoor Mobility (Ambulation): Independent Stairs: Independent Prior Devices Use: None PT Evaluation-Current Subjective Patient agrees to PT. States she is up independently in room without difficulty. Pain Numeric Pain Scale: 0-No Pain Location: No Pain Reported Objective Patient Orientation: Normal For Age Attachments: Oxygen (10L) ROM/Strength ROM Lower Extremities bilateral LE WFL Strength Lower Extremities 4/5 grossly bilateral LE Integumentary/Posture Bowel Incontinence: No Bladder Incontinence: No Posture WFL Neuromuscular (Tone, Coordination, Reflexes) grossly intact Sensory Vision: Wears Glasses Hearing: Functional Transfers Lying to Sitting/Side of Bed(Q: 6 Sit to Stand (QC): 6 Chair/Smv-ti-Xjqrl Xfer(QC): 6 Gait Does the Patient Walk?: Yes Mode of Locomotion: Walk Anticipated Mode of Locomotion: Walk Walk 10 feet (QC): 6 Walk 50 ft with 2 Turns(QC): 6 Walk 150 ft (QC): 88 Distance: 75' Gait Assistive Device: None Comments/Gait Description decreased SAO2 to 87% with minimal activity with quick recovery Balance Sitting Static: Normal Sitting Dynamic: Normal Standing Static: Normal Standing Dynamic: Normal Treatment Deep breathing exercises with trunk rotation and shoulder flexion to expand rib cage and improve pulmonary function Assessment/Needs 41 y.o. female, will be seen short term by skilled PT to address pulmonary function with functional mobility and exercise. Rehab Potential: Fair PT Short Term Goals Short Term Goals Time Frame: Jun 15, 2021 Roll Left & Right: 6 Sit to lyin Lying to sitting on side of be: 6 Sit to stand: 6 Chair/xie-ad-iockn transfer: 6 Toilet transfer: 6 Walk 10 feet: 6 Walk 50 feet with two turns: 6 Walk 150 feet: 6 compliance with breathing exercises and OOB activity PT Plan Problem List Problem List: Other (decreased SAO2 with minimal activity) Treatment/Plan Treatment Plan: Continue Plan of Care Treatment Plan: Functional Activity Jacobo, Therapeutic Exercise Treatment Duration: Jun 15, 2021 Frequency: 6 times per week Estimated Hrs Per Day: .25 hour per day Patient and/or Family Agrees t: Yes Time/GCodes Time In: 1113 Time Out: 1123 Total Billed Treatment Time: 10 Total Billed Treatment 1 visit EVLowC 10 min TYREE GOODEN PT Jun 10, 2021 11:48
--- NOTE | 2021-06-10 11:52 | History & Physical-Hospitalist ---
LOLITAANNY 06/10/21 1152: History of Present Illness HPI/Chief Complaint CC: Tricyclic Antidepressant OD, Aspiration Pneumonia HPI: Elizabeth Squires is a 41 YO female with a history of hypothyroidism, morbid obesity, and undiagnosed sleep apnea who presents for evaluation and management of tricyclic antidepressant overdose and aspiration pneumonia. Elizabeth is feeling restless, but otherwise okay, and demonstrates appropriate affect. She currently requires 12 L of oxygen, and states that she is able to ambulate for a short amount of time, and has been able to shower. Upon questioning, she is eating normally, and has had normal bowel movements. Elizabeth strongly desires to return home to her dog, though we discussed that we need to consult pulmonology, and take it one day at a time. Potassium is currently 3.9 since initiating supplementation. Source: patient Exam Limitations: no limitations Date Seen 06/10/21 Time Seen by a Provider: 09:00 Attending Physician Malorie Cantu MD [facility] Referring Physician Date of Admission Jun 05, 2021 at 02:21 Home Medications & Allergies Home Medications Reviewed patient Home Medication Reconciliation performed by pharmacy medication reconciliations instrumentation and control technician and/or nursing. Patients Allergies have been reviewed. Allergies Allergies Coded Allergies No Known Drug Allergies (Yxycowdepg27/19/20) Past Avvqcvn-Viehbg-Oiaird Hx Patient Social History Marrital Status: , cohabiting Smoking Status: Unknown if Ever Smoked Smokeless Tobacco Frequency: Unknown if Ever Used Use of E-Cig and/or Vaping dev: Unable to obtain Substance use?: Unable to obtain Alcohol Use?: Unable to obtain Pt feels they are or have been: Unable to obtain Immunizations Up To Date Tetanus Booster (TDap): Unknown Hepatitis A: No Hepatitis B: No Date of Pneumonia Vaccine: Apr 06, 2012 Seasonal Allergies Seasonal Allergies: Yes (MILD) Current Status status: Unable to obtain status: Unable to obtain Advance Directives: Unable to obtain Advance Directive Location: Unable to obtain copy Primary Language: Taiwanese Preferred Spoken Language: Taiwanese Is interpretation needed?: Unable to obtain Past Medical History Surgeries: Tonsillectomy, Tubal Ligation Pneumonia (Suspected aspiration pneumonia 2/2 tri-cyclic anti-deppressant ), Sleep Apnea Currently Using CPAP: No Currently Using BIPAP: Yes Hypertension 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 Blood Disorders: Yes (iron deficiency anemia ) Adverse Reaction/Blood Tranf: No (HAS HAD BLOOD WITH NO PROBLEMS) HTN Hypothyroidism Family Medical History Cardiovascular disease 19 FATHER 19 MOTHER Congenital heart disease 19 MOTHER Hypertension 19 MOTHER Myocardial infarction 19 MOTHER Heart Disease, Diabetes, Hypertension Father: colon Paternal grandmother: breast cancer Materanl aunt: leukemia & lupus Review of Systems Constitutional: see HPI, malaise Respiratory: dyspnea on exertion, short of breath Cardiovascular: no symptoms reported Gastrointestinal: no symptoms reported Genitourinary: no symptoms reported : No Control/STD Prophylaxis: Other (Tubal Ligation) Musculoskeletal: no symptoms reported Skin: no symptoms reported Psychiatric/Neurological: Anxiety, Depressed Physical Exam Physical Exam Vital Signs Vital Signs - First Documented 06/05/21 06/05/21 00:44 03:28 Temp 36.5 Pulse 100 Resp 22 B/P (MAP) 97/67 (77) Pulse Ox 97 O2 Delivery Nasal Cannula O2 Flow Rate 2.00 FiO2 21 Capillary Refill : Less Than 3 Seconds Height, Weight, BMI Height: 5'2.00" Weight: 272lbs. 0.0oz. 123.047142bk; 41.55 BMI Method:Stated General Appearance: No Apparent Distress, WD/WN, Anxious, Obese HEENT: PERRL/EOMI Cardiovascular: Regular Rate, Rhythm Results Results/Procedures Labs Laboratory Tests 06/09/21 05:45 06/10/21 05:55 Patient resulted labs reviewed. Assessment/Plan Admission Diagnosis Admission Status: Inpatient Order (span 2 midnights) Reason for Inpatient Admission: OD on tricyclic antidepressants Aspiration Pneumonia Assessment and Plan Consult Pulmonology Try to wean off of oxygen Critical Care Critically Ill Patient Diagnosis/Problems Diagnosis/Problems (1) Hypothyroid Status: Chronic Qualifiers: Hypothyroidism type: acquired Qualified Codes: E03.9 - Hypothyroidism, unspecified (2) TCA (tricyclic antidepressant) overdose of undetermined intent Status: Resolved Qualifiers: Encounter type: initial encounter Qualified Codes: T43.014A - Poisoning by tricyclic antidepressants, undetermined, initial encounter (3) Hypokalemia Status: Acute (4) Hypothyroidism Status: Acute (5) Acute and chronic respiratory failure with hypoxia Status: Acute (6) Upper respiratory infection Status: Acute (7) Anxiety Status: Acute (8) Dyspnea Status: Acute GENOVEVA DALY DO 06/11/21 0525: Past Obzsiex-Psjrno-Gcnqma Hx Family Medical History Cardiovascular disease 19 FATHER 19 MOTHER Congenital heart disease 19 MOTHER Hypertension 19 MOTHER Myocardial infarction 19 MOTHER Assessment/Plan Admission Diagnosis OD Admission Status: Inpatient Order (span 2 midnights) Reason for Inpatient Admission: OT Supervisory-Addendum Brief Verification & Attestation Participated in pt care: history, MDM, physical Personally performed: exam, history, MDM, supervision of care Care discussed with: Medical Student Procedures: n/a Results interpretation: Verified all documentation Verification and Attestation of Medical Student E/M Service A medical student performed and documented this service in my presence. I reviewed and verified all information documented by the medical student and made modifications to such information, when appropriate. I personally performed the physical exam and medical decision making. Genoveva Daly, Jun 11, 2021,05:25 ANNY MCHUGH Jun 10, 2021 11:52 GENOVEVA DALY DO Jun 11, 2021 05:25
--- NOTE | 2021-06-10 14:48 | Occ Therapy Progress Note ---
Therapy Progress Note OT orders received and chart reviewed. OT visited with pt, who indicates she is independent with ADLs and is at her PLOF. Pt reports she has been up to the bathroom independently, and has been monitoring her O2 saturation with activities. Pt ambulated 75' with PT, no AD independently. Pt has no concerns with her ability to complete ADLs upon discharge. No skilled OT services indicated at this time, as pt is at PLOF and IND with ADLs. D/C from OT. 1, visit 1403 SAVANA URENA OT Jun 10, 2021 14:48
[2021-06-10 22:36] VITALS: BP 165/116
[2021-06-11] MEDS: RT-ALBUTEROL SULF 2.5 MG/3 ML PRE-MIX VIAL INH SCH ×3 (02:13→14:28)
[2021-06-11 05:23] LABS: BASOPHILS # (AUTO) 0.1 10^3/uL (0.0-0.1); BASOPHILS % (AUTO) 1 % (0-10); EOSINOPHILS # (AUTO) 0.3 10^3/uL (0.0-0.3); EOSINOPHILS % (AUTO) 3 % (0-10); HEMATOCRIT 32 % (35-52); HEMOGLOBIN 10.4 g/dL (11.5-16.0); LYMPHOCYTES # (AUTO) 0.9 10^3/uL (1.0-4.0); LYMPHOCYTES % (AUTO) 10 % (12-44); MEAN CORPUSCULAR HEMOGLOBIN 30 pg (25-34); MEAN CORPUSCULAR HGB CONC 32 g/dL (32-36); MEAN CORPUSCULAR VOLUME 92 fL (80-99); MEAN PLATELET VOLUME 10.9 fL (9.0-12.2); MONOCYTES # (AUTO) 0.8 10^3/uL (0.0-1.0); MONOCYTES % (AUTO) 8 % (0-12); NEUTROPHILS # (AUTO) 7.2 10^3/uL (1.8-7.8); NEUTROPHILS % (AUTO) 76 % (42-75); PLATELET COUNT 298 10^3/uL (130-400); WHITE BLOOD COUNT 9.5 10^3/uL (4.3-11.0)
--- NOTE | 2021-06-11 05:24 | Progress Note - Hospitalist ---
Subjective HPI/CC On Admission Date Seen by Provider: Jun 10, 2021 Time Seen by Provider: 11:00 CC: Tricyclic Antidepressant OD, Aspiration Pneumonia HPI: Elizabeth Squires is a 41 YO female with a history of hypothyroidism, morbid obe sity, and undiagnosed sleep apnea who presents for evaluation and management of tricyclic antidepressant overdose and aspiration pneumonia. Elizabeth is feeling restless, but otherwise okay, and demonstrates appropriate affect. She currently requires 12 L of oxygen, and states that she is able to a mbulate for a short amount of time, and has been able to shower. Upon questioning, she is eating normally, and has had normal bowel movements. Elizabeth strongly desires to return home to her dog, though we discussed that we need to consult pulmonology, and take it one day at a time. Potassium is currently 3.9 since initiating supplementation. Subjective/Events-last exam Inadvertently missed note late entry Pt doing a lot better Still on 12 liters of oxygen PT and OT will be ordered Pulmonology consult appreciated Eating and drinking well Hopefully will discharge soon Review of Systems General: Fatigue, Malaise Pulmonary: Dyspnea Objective Exam Vital Signs Vital Signs Date Time Temp Pulse Resp B/P (MAP) Pulse Ox O2 Delivery O2 Flow Rate FiO2 06/11/21 04:58 36.9 96 22 145/82 97 NIV Bilevel 8.00 06/09/21 08:00 55 Capillary Refill : Less Than 3 Seconds General Appearance: No Apparent Distress, WD/WN, Chronically ill, Obese Respiratory: Lungs Clear, Normal Breath Sounds Cardiovascular: Regular Rate, Rhythm Results/Procedures Lab Laboratory Tests 06/10/21 05:55 Patient resulted labs reviewed. Assessment/Plan Assessment and Plan Assess & Plan/Chief Complaint Assessment: Tricyclic overdose Aspiration pneumonia Undiagnosed sleep apnea Morbid obesity Hypoxemia requiring BiPAP Hypothyroidism Plan: Pulmonary consult BiPAP ABG Chest x-ray 06/08/2021: Supportive care Change Synthroid from IV to p.o. Monitor bowels Hep-Lock IV fluid 06/09/2021: Monitor closely Wean oxygen 06/10/2021: Pulmonology appreciated Supportive care Critical Care Critically Ill Patient ZEYNEP DALY DO Jun 11, 2021 05:24
[2021-06-11] MEDS: ENOXAPARIN 40 MG/0.4 ML (LOVENOX) SYR SC SCH (05:26)
[2021-06-11 05:32] LABS: ALBUMIN 3.2 GM/DL (3.2-4.5)
[2021-06-11 05:33] LABS: POTASSIUM 3.6 MMOL/L (3.6-5.0)
[2021-06-11 05:34] LABS: CALCIUM 9.1 MG/DL (8.5-10.1)
[2021-06-11 05:35] LABS: TOTAL PROTEIN 6.2 GM/DL (6.4-8.2)
[2021-06-11 05:37] LABS: BILIRUBIN,TOTAL 0.4 MG/DL (0.1-1.0)
[2021-06-11 05:39] LABS: CREATININE SERUM 0.71 MG/DL (0.60-1.30)
[2021-06-11] MEDS: POTASSIUM CL 10MEQ/50ML IVPB 50 ML IV SCH ×3 (05:54→07:19)
[2021-06-11] MEDS: MAGNESIUM 1 GM/100 ML IVPB 100 ML IV SCH (06:14)
[2021-06-11] MEDS: LEVOTHYROXINE 50 MCG (LEVOTHROID) TAB PO SCH (06:21)
[2021-06-11] MEDS: KCL 20 MEQ TAB (K-DUR) PO SCH (06:21)
[2021-06-11 07:38] LABS: ABG BASE EXCESS 4.2 MMOL/L (-2.5-2.5); ABG OXYGEN SATURATION 87 % (94-100); ABG PCO2 38 MMHG (35-45); ABG PH 7.48 (7.37-7.43); ABG PO2 54 MMHG (79-93); ABG TCO2 28.9 MMOL/L (21.0-31.0)
[2021-06-11 07:53] LABS: ALLENS TEST YES-POS; INSPIRED O2 8L; PATIENT TEMP 36.6; VENTILATOR NO
[2021-06-11] MEDS: FOLIC ACID 1 MG TAB PO SCH (08:09)
[2021-06-11] MEDS: AUGMENTIN 875 MG TAB (AMOXICILLIN/CLAVULANATE) PO SCH (08:09)
[2021-06-11] MEDS: HYDROcodone/APAP 5 MG/325 MG (LORTAB) TAB PO PRN (08:09)
--- NOTE | 2021-06-11 10:05 | Physical Therapy Progress Note ---
Therapy Progress Note Patient states,"I'm fine and I just want out of here." declined PT. PT to dismiss from services. 1 visit (831) TYREE GOODEN PT Jun 11, 2021 10:05
--- NOTE | 2021-06-11 12:52 | Pulmonary Progress Note ---
Subjective Date Seen by a Provider: Jun 11, 2021 Time Seen by a Provider: 12:41 Subjective/Events-last exam No complaints at this time. Noted to require 12L oxygen with exertion however otherwise not wearing oxygen. Sepsis Event Evaluation Height, Weight, BMI Height: 5'2.00" Weight: 272lbs. 0.0oz. 123.273337rn; 41.55 BMI Method:Stated Exam Exam Patient acknowledged, consented, and participated in this virtual visit which was conducted using real time audio/video Vital Signs Date Time Temp Pulse Resp B/P (MAP) Pulse Ox O2 Delivery O2 Flow Rate FiO2 06/11/21 11:44 36.5 104 18 165/88 90 High Flow N/C 8.00 06/11/21 08:36 36.6 100 18 153/82 93 High Flow N/C 8.00 06/11/21 08:00 High Flow N/C 8.00 06/11/21 07:28 91 High Flow N/C 8.00 06/11/21 04:58 36.9 96 22 145/82 97 NIV Bilevel 8.00 06/11/21 02:14 94 22 96 65.00 06/11/21 00:00 36.6 101 22 164/110 95 High Flow N/C 8.00 06/10/21 22:36 36.8 104 91 06/10/21 22:20 91 High Flow N/C 8.00 06/10/21 21:01 36.8 06/10/21 20:20 95 High Flow N/C 10.00 06/10/21 20:00 36.8 112 22 165/116 95 High Flow N/C 10.00 06/10/21 18:51 90 High Flow N/C 10.00 06/10/21 15:55 36.7 114 22 165/75 90 High Flow N/C 10.00 I & O 06/11/21 07:00 Intake Total 1540 ml Balance 1540 ml Height & Weight Height: 5'2.00" Weight: 272lbs. 0.0oz. 123.382770mf; 41.55 BMI Method:Stated General Appearance: No Apparent Distress, WD/WN, Chronically ill, Obese HEENT: PERRL/EOMI Neck: Non Tender, Supple Respiratory: Lungs Clear, Normal Breath Sounds Cardiovascular: Regular Rate, Rhythm Capillary Refill: Less Than 3 Seconds Peripheral Pulses: 1+ Dorsalis Pedis (R), 1+ Left Dors-Pedis (L) (See free text) Gastrointestinal: normal bowel sounds, soft Extremity: Non Tender, No Calf Tenderness, No Pedal Edema Neurologic/Psychiatric: Alert, Oriented x3, No Motor/Sensory Deficits, Normal Mood/Affect Skin: Normal Color, Warm/Dry Results Lab Laboratory Tests 06/10/21 05:55 06/11/21 05:12 Radiology Date of Exam:06/10/21 CHEST PA/LAT (2 VIEW) INDICATION: Pneumonia, follow-up. PA and lateral chest obtained at 08:25 a.m. compared to 06/08/2021 FINDINGS: Heart and mediastinal silhouette are normal in appearance. Left-sided PICC line is unchanged. Extensive bilateral infiltrates remain present and appear similar to the prior study. There is no pneumothorax or gross pleural fluid. IMPRESSION: Stable extensive bilateral infiltrates with no significant change. Assessment/Plan Assessment/Plan 41 YO female with a history of hypothyroidism, morbid obesity, and undiagnosed sleep apnea who presented for evaluation and management of tricyclic antidepressant overdose and aspiration pneumonia. Pulmonary consulted re: Aspiration pneumonia Aspiration pneumonia: Pt continues to have increased oxygen requirements of up to 12L with exertion. CXR 06/10 noted to have Stable extensive bilateral infiltrates with no significant change. She is currently on Augmentin BID. At this time will cont present management. Would consider diuresis for goal net neg. Cont to wean oxygen as tolerated. Ok to maintain O2 sats> 88% End of Life Care: Pallative Care AMRIT BEASLEY MD Jun 11, 2021 12:52
--- NOTE | 2021-06-11 13:13 | Progress Note ---
ANNY MCHUGH 06/11/21 1313: Progress Note Elizabeth Squires is a 41 YO female with a history of hypothyroidism, morbid obesity, and undiagnosed sleep apnea who presented on 06/05/2021 at 00:45 for evaluation and management of tricyclic antidepressant overdose, aspiration pneumonia, and suicidal ideation. Her significant other called EMS upon finding her unconscious, and stated that she "threatened to take pills." Upon admission, she was placed on a non-rebreather, and moaned in response to sternal rub. Pulmonology was consulted and determined she was in respiratory failure, with respiratory acidosis, and elevated lactate (2.42 on 06/05/21), which trended downwards that day to WNM. Upon improvement the following day (06/06/2021), patient states that she does not remember the events of the previous day, and states that it was not a suicide attempt and that she "just wanted to go to sleep." She was placed on potassium and magnesium for electrolyte supplementation, as well as Augmentin for broad coverage of aspiration pneumonia, and Lovenox for DVT prophylaxis. Elizabeth frequently desatted over the course of her stay, which prompted use of BIPAP with 15 L of HFO to obtain an O2 sat of > 90%; she responded well to this intervention with an O2 sat of 94%. On 06/08/2021, she was taken off of BIPAP, and placed on 6L of HFN. A 2 view Chest X-ray (PA/Lat)was ordered and completed on 06/08/2021 and 06/10/21, which demonstrated stable extensive bilateral infiltrates with no significant ch cameron. Upon auscultation, bilateral rales were appreciated, and more extensive on the left than the right. As well, she was assessed by PT for debility and weakness, for which they worked on deep breathing exercises with trunk rotation and shoulder flexion to expand rib cage. Leading up to discharge, Elizabeth is anxious to go home and be with her dog and partner. She states that the pulse oximeter is wrong and that her O2 sat is better than what it appears. She has been able to wean her oxygen flow rate from 12 L to 8 L over the course of a day, and frequently stops her oxygen while resting. RT states she is to use O2 as tolerated, and that it is okay to maintain an O2 sat of >88%. Prior to discharge, RT reassessed for home oxygen and determined that she requires 2 L at rest, and 12 L while ambulating. In addition to this, she is to continue PO Augmentin 875 mg BID (start 06/10, end 06/12/21), continue K-Dur tablet 20 meq, and levothyroxine 50 mcg. GENOVEVA DALY DO 06/12/21 0527: Supervisory-Addendum Brief Verification & Attestation Participated in pt care: history, MDM, physical Personally performed: exam, history, MDM, supervision of care Care discussed with: Medical Student Procedures: n/a Results interpretation: Verified all documentation Verification and Attestation of Medical Student E/M Service A medical student performed and documented this service in my presence. I reviewed and verified all information documented by the medical student and made modifications to such information, when appropriate. I personally performed the physical exam and medical decision making. Genoveva Daly Jun 12, 2021,05:26 ANNY MCHUGH Jun 11, 2021 13:13 GENOVEVA DALY DO Jun 12, 2021 05:27
[2021-06-11] MEDS ORDERED: FURO-124 PO (13:31)
[2021-06-11 15:09] VITALS: BP 165/88
== END 2021-06-11 15:10 | disposition home or self-care (01) | DRG 917 ==
LOC: EDUNIT# 00:43 → ER 00:45 → ICU 02:21 → 4TH 06-06 20:06
PROVIDERS: ADMIT Family Medicine; ATTEND Family Medicine
PROC: 5A09457 Assistance with Respiratory Ventilation, 24-96 Consecutive Hours, Continuous Positive Airway Pressure (ICD-10-PCS; principal; 2021-06-06)
DX: T43.012A Poisoning by tricyclic antidepressants, intentional self-harm, initial encounter (principal); J96.21 Acute and chronic respiratory failure with hypoxia; J69.0 Pneumonitis due to inhalation of food and vomit; G92.9 Unspecified toxic encephalopathy; E87.2 Acidosis; F15.10 Other stimulant abuse, uncomplicated; F12.10 Cannabis abuse, uncomplicated; E03.9 Hypothyroidism, unspecified; I10 Essential (primary) hypertension; G43.909 Migraine, unspecified, not intractable, without status migrainosus; M19.90 Unspecified osteoarthritis, unspecified site; F41.9 Anxiety disorder, unspecified; Z79.890 Hormone replacement therapy; Z79.899 Other long term (current) drug therapy; Z20.822 Contact with and (suspected) exposure to COVID-19; G47.39 Other sleep apnea; E66.01 Morbid (severe) obesity due to excess calories; F32.A Depression, unspecified; E87.6 Hypokalemia
CPT/HCPCS: 36415; 36569; 36600; 51702; 71045; 71046; 76937; 80048; 80053; 80306; 80320; 80329; 81000; 82805; 82947; 83605; 83735; 84100; 84145; 84439; 84443; 84703; 85007; 85025; 85027; 85610; 85730; 87081; 87088; 87636; 93005; 94640; 94660; 94760; 94761; 96361; 96374

== ENCOUNTER 2021-12-04 16:28 | Emergency (ER) | payer SELFPAY ==
[~2021-12-04] VITALS: Ht 160 cm; Wt 136.0 kg
[~2021-12-04 16:28] MED LIST changes: +CYCL10TA25 PO; -CYCL10TA9 PO; +FURO-124 PO; +IBUP-2473 PO; +LEVO50CA4 PO
--- NOTE | 2021-12-04 16:38 | ED Headache ---
General Chief Complaint: Head/Cervical Problems Stated Complaint: MIGRAINE, HEADACHE Source: patient Exam Limitations: no limitations (EM PIERCE APRN) History of Present Illness Date Seen by Provider: Dec 04, 2021 Time Seen by Provider: 16:36 Initial Comments To ER by EMS from home with c/o headache blurred vision nausea light sensitivity and right sided tingling since about noon today. History of migraines and this is similar including the paresthesias. No head injury or fevers. Timing/Duration: 4-6 hours Severity/Quality: moderate, severe Location: global Associated Symptoms: nausea/vomiting; No seizures, No sinus infection, No stiff neck; vision changes (EM PIERCE APRN) Allergies and Home Medications Allergies Coded Allergies: No Known Drug Allergies (Unverified , 06/25/20) Patient Home Medication List Home Medication List Reviewed: Yes (EM PIERCE APRN) Furosemide (Lasix) 40 Mg Tablet, 40 MG PO Q48H Prescribed by: ZEYNEP DALY on 06/11/21 1331 Ibuprofen (Ibuprofen) 200 Mg Tablet, 400-600 MG PO Q8H PRN for PAIN-MILD (1-4), (Reported) Entered as Reported by: NATASHA MENCHACA on 06/06/21 0924 Levothyroxine Sodium (Levothyroxine) 50 Mcg Capsule, 50 MCG PO DAILY Prescribed by: JYOTSNA TEJADA on 06/06/21 1406 Review of Systems Review of Systems Constitutional: see HPI Eyes: See HPI, Photophobia Ears, Nose, Mouth, Throat: no symptoms reported Respiratory: no symptoms reported Cardiovascular: no symptoms reported Gastrointestinal: nausea, vomiting Genitourinary: no symptoms reported Musculoskeletal: no symptoms reported Skin: no symptoms reported Psychiatric/Neurological: No Symptoms Reported (EM PIERCE APRN) Past Zkdrhnh-Rhmqiw-Vnjsgi Hx Immunizations Up To Date Tetanus Booster (TDap): Unknown (EM PIERCE APRN) Seasonal Allergies Seasonal Allergies: Yes (MILD) (EM PIERCE APRN) Past Medical History Surgery/Hospitalization HX: HYSTERECTOMY. 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 Sexually Transmitted Disease: No HIV/AIDS: No Genitourinary: No Kidney Infection Gastrointestinal: Yes Polyps Musculoskeletal: Yes Arthritis Endocrine: Yes Hypothyroidsim HEENT: Yes (GLASSES) Loss of Vision: Denies Hearing Impairment: Denies Cancer: No Psychosocial: Yes Anxiety, Depression Integumentary: No Blood Disorders: Yes (iron deficiency anemia ) Adverse Reaction/Blood Tranf: No (HAS HAD BLOOD WITH NO PROBLEMS) (EM PIERCE APRN) Family Medical History Cardiovascular disease 19 FATHER 19 MOTHER Congenital heart disease 19 MOTHER Hypertension 19 MOTHER Myocardial infarction 19 MOTHER Heart Disease, Diabetes, Hypertension Father: colon Paternal grandmother: breast cancer Materanl aunt: leukemia & lupus (EM PIERCE APRN) Physical Exam Vital Signs Vital Signs - First Documented 12/04/21 16:32 Temp 36.5 Pulse 71 Resp 18 B/P (MAP) 150/103 (119) Pulse Ox 97 (RODO IRIZARRY MD) Vital Signs Capillary Refill : (EM PIERCE APRN) Height, Weight, BMI Height: 5'2.00" Weight: 272lbs. 0.0oz. 123.555072od; 41.55 BMI Method:Stated General Appearance: WD/WN, no apparent distress HEENT: PERRL/EOMI, normal ENT inspection, TMs normal Neck: non-tender, full range of motion Respiratory: no respiratory distress, no accessory muscle use Gastrointestinal: normal bowel sounds, non tender, soft Extremities: normal range of motion, non-tender Psychiatric: alert, oriented x 3 Crainal Nerves: normal hearing, normal speech, PERRL Motor/Sensory: no motor deficit, no sensory deficit Skin: normal color, warm/dry (EM PIERCE APRN) Progress/Results/Core Measures Results/Orders Medications Given in ED Current Medications Medications Dose Ordered Sig/Shilpa Route Start Time Stop Time Status Last Admin Dose Admin Diphenhydramine HCl 25 mg ONCE ONCE IVP 12/04/21 16:45 12/04/21 16:46 DC 12/04/21 17:08 25 MG Ketorolac Tromethamine 15 mg ONCE ONCE IVP 12/04/21 16:45 12/04/21 16:46 DC 12/04/21 17:08 15 MG Prochlorperazine Edisylate 5 mg ONCE ONCE IV 12/04/21 16:45 12/04/21 16:46 DC 12/04/21 17:08 5 MG (RODO IRIZARRY MD) Vital Signs/I&O 12/04/21 12/04/21 16:32 18:38 Temp 36.5 Pulse 71 71 Resp 18 20 B/P (MAP) 150/103 (119) 136/88 Pulse Ox 97 (RODO IRIZARRY MD) Departure Communication (Admissions) 1830-migraine paresthesias are gone, states she is ready to go home. (EM PIERCE APRN) Impression Primary Impression: Migraine Disposition: HOME, SELF-CARE Condition: Stable Departure-Patient Inst. Decision time for Depature: 17:46 (EM PIERCE APRN) Referrals: [facility] [place] ([place]) Primary Care Physician LENIN SHER (Family) Primary Care Physician Patient Instructions: Migraines in Adults ATTENDING PHYSICIAN NOTE: I was physically present as attending physician in the emergency department during the care of this patient, but I was not directly involved in the decision making or delivery of care for this patient. (RODO IRIZARRY MD) EM PIERCE APRN Dec 04, 2021 16:38 RODO IRIZARRY MD Dec 04, 2021 20:04
[2021-12-04] MEDS ORDERED: KETOROLAC 30 MG/ML VIAL IVP ONE (16:45)
[2021-12-04] MEDS ORDERED: PROCHLORPERAZINE 10 MG/2ML INJ (COMPAZINE) IV ONE (16:45)
[2021-12-04] MEDS ORDERED: diphenhydrAMINE 50 MG/ML INJ (BENADRYL) IVP ONE (16:45)
[2021-12-04] MEDS ORDERED: NS IV 1000 ML 1,000 ML IV SCH (16:45)
--- NOTE | 2021-12-04 17:18 | Diagnostic Imaging Report ---
PROCEDURE: CT head without contrast. TECHNIQUE: Multiple contiguous axial images were obtained through the brain without the use of intravenous contrast. Auto Exposure Controls were utilized during the CT exam to meet ALARA standards for radiation dose reduction. INDICATION: Migraine headache and visual disturbance. COMPARISON: 09/21/2020. CT HEAD: CT images of the head were obtained. FINDINGS: Ventricles and sulci are within normal limits for size. There is no intracranial hemorrhage identified. There is no abnormal mass effect or shift of midline structures. Partially empty sella turcica is again noted with continued opacification of left mastoid air cells. IMPRESSION: No acute abnormality or significant change. Dictated by: Dictated on workstation # [id number]
[2021-12-04 18:38] VITALS: BP 136/88
== END 2021-12-04 18:38 | disposition home or self-care (01) ==
LOC: EDUNIT# 16:28 → ER 16:32
DX: G43.909 Migraine, unspecified, not intractable, without status migrainosus (principal)
CPT/HCPCS: 70450